=== PATIENT | male | born 1975 | race American Indian/Alaskan Native ===

== ENCOUNTER 2018-04-14 12:01 | Inpatient (IN) | payer MEDICARE ==
[2018-04-14] MEDS ORDERED: NACL 0.9% 500 ML 500 ML IV ONE (12:43)
[2018-04-14] MEDS ORDERED: TYLENOL FEEDTUBE ONE (12:45)
[2018-04-14] MEDS ORDERED: ATROVENT IH ONE (12:47)
[2018-04-14] MEDS ORDERED: PROVENTIL IH ONE ×2 (12:47→14:12)
--- NOTE | 2018-04-14 12:47 | Emergency Department Report ---
HPI - General Chief Complaint: Dyspnea/Respdistress Time Seen by Provider: 04/14/18 12:38 - HPI HPI: This is a 43-year-old -Swiss male who presents to the emergency department via EMS from home as a code sepsis and shortness of breath. The cuca ent has a past medical history of cerebral palsy, profound mental retardation, seizures. He is nonverbal at baseline. He has a feeding tube. Mom says that he has felt warm but she does not have a thermometer at home and he presents here with a fever. He is also been having a lot of head and chest congestion with coughing. This is been going on for the past 2-3 days and mom has been trying to treat with Mucinex. Primary care physician is Dr. Scott. ED Past Medical Hx - Past Medical History Previous Medical History?: Yes Hx Hypertension: Yes Hx Seizures: Yes Additional medical history: Cerebral Palsy - Social History Smoking Status: Never Smoker Substance Use Type: None - Medications Home Medications: Home Medications Medication Instructions Recorded Confirmed Last Taken Type Benazepril HCl [Lotensin] 10 mg PO DAILY 04/14/18 04/14/18 Unknown History Lactulose [Constulose] 2.5 tsp PO BID 04/14/18 04/14/18 Unknown History Metoprolol Tartrate 100 mg PO DAILY 04/14/18 04/14/18 Unknown History PHENobarbital [Phenobarbital] 2.5 tsp PO BID 04/14/18 04/14/18 Unknown History ED Review of Systems ROS: Stated complaint: CONGESTION Other details as noted in HPI Comment: Unobtainable due to pts medical conditions Physical Exam - Physical Exam Vital Signs: Vital Signs 04/14/18 12:41 Temperature 102.7 F H Pulse Rate 105 H Respiratory 50 H Rate Blood Pressure 152/99 O2 Sat by Pulse 92 Oximetry Physical Exam: GENERAL: Patient is ill-appearing. HEENT: Normocephalic. Atraumatic. Patient has moist mucous membranes. EYES: Extraocular motions are intact. Pupils are equal and reactive to light bilaterally. NECK: Supple. Trachea is midline. CHEST/LUNGS: Coarse breath sounds and some rhonchi heard. There is some tachypnea with accessory muscle use. There is some respiratory distress noted. HEART/CARDIOVASCULAR: Regular. There is moderate tachycardia. There is no obvious murmur. ABDOMEN: Abdomen is soft, nontender. Patient has normal bowel sounds. There is no abdominal distention. SKIN: Skin is warm and dry. NEURO: The patient is awake but nonverbal and does not follow any commands but this is baseline for the patient. MUSCULOSKELETAL: Contracted upper and lower extremities bilaterally. ED Course Vital Signs 04/14/18 12:41 Temperature 102.7 F H Pulse Rate 105 H Respiratory 50 H Rate Blood Pressure 152/99 O2 Sat by Pulse 92 Oximetry - ABG Interpretation Ph: 7.4 PCO2: 39 PO2: 136 Bicarbonate: 24 Interpretation: normal - Central Line Placement Left Femoral Consent Obtained: verbal consent Time Out Performed: Yes Patient Placed on Monitor/Pulse Ox: Yes Prep: mask, gown, gloves Central Line Prep: Chlorhexidine scrub Local Anesthesia Used: Lidocaine 1% Amount of Anesthesia Used (mls): 3 Ultrasound Used for Placement: Yes Central Line Lumen Inserted: triple Bloods Obtained for Lab: No Central Line Position: good blood return, all ports aspirated, flus, sutured in place with nyl Dressing Applied: Tegaderm, sterile gauze/tape Patient Tolerated Procedure: well Complications: none ED Medical Decision Making - Lab Data Result diagrams: 04/14/18 12:53 04/14/18 12:53 - EKG Data -: EKG Interpreted by Me EKG shows normal: sinus rhythm, axis, intervals, QRS complexes, ST-T waves Rate: tachycardia (134 bpm) - EKG Data When compared to previous EKG there are: previous EKG unavailable Interpretation: other (sinus tach at 134 bpm) - Radiology Data Radiology results: image reviewed interpreted by me: Chest x-ray shows some pulmonary vascular congestion and cardiomegaly. - Medical Decision Making This patient presents to the emergency department with the complaints of shortness of breath and as a code sepsis. Patient presents with tachycardia, tachypnea and a fever. Chest x-ray shows some vascular congestion But no obvious pneumonia. Negative for rapid flu and strep. Labs show a leukocytosis, hyponatremia. He was started empirically on some Levaquin. He is received IV fluid resuscitation. The patient's breath sounds are very coarse with some rhonchi and the chest x-ray showed some vascular congestion so the patient was given a small amount of Lasix despite his hyponatremia in the hopes for some diuresis and improvement of his respiratory status. An ABG was done that came back as normal without any acid-base disturbance. He has been on a Venturi mask at about 35%. Patient will be admitted to the [facility] for further evaluation and treatment was extended for admission by the hospitalist, Dr. Abel. - Differential Diagnosis sepsis, pneumonia, CHF, influenza Critical Care Time: Yes Critical care time in (mins) excluding proc time.: 35 Critical care attestation.: If time is entered above; I have spent that time in minutes in the direct care of this critically ill patient, excluding procedure time. Critical care time was spent on this patient and doing his initial evaluation, multiple re- evaluations, ordering interpretation of labs and imaging, discussion with the patient's mother. This does not include the time spent doing the central line procedure. Critical Care Time: 35 minutes ED Disposition Clinical Impression: Hyponatremia syndrome Sepsis Qualifiers: Sepsis type: sepsis due to unspecified organism Qualified Code(s): A41.9 - Sepsis, unspecified organism Leukocytosis Qualifiers: Leukocytosis type: unspecified Qualified Code(s): D72.829 - Elevated white blood cell count, unspecified Dyspnea Qualifiers: Dyspnea type: shortness of breath Qualified Code(s): R06.02 - Shortness of breath Disposition: DC-09 OP ADMIT IP TO THIS HOSP Is pt being admited?: Yes Condition: Serious Time of Disposition: 18:53
[2018-04-14 13:12] LABS: Hematocrit 48.1 % (35.5-45.6); Hemoglobin 16.3 gm/dl (11.8-15.2); Mean Corpuscular HGB Conc 34 % (32-34); Mean Corpuscular Volume 86 fl (84-94); Platelet Count 314 K/mm3 (140-440); Red Blood Count 5.63 M/mm3 (3.65-5.03); Red Cell Distribution Width 13.6 % (13.2-15.2)
[2018-04-14] MEDS ORDERED: LEVAQUIN 750MG/150ML 750 MG/150 ML BAG IV ONE (13:13)
[2018-04-14 13:22] LABS: Alanine Aminotransferase 21 units/L (7-56); Albumin 3.9 g/dL (3.9-5); BUN/Creatinine Ratio 10; Blood Urea Nitrogen 4 mg/dL (9-20); Calcium 9.6 mg/dL (8.4-10.2); Hemolysis Index 16
--- NOTE | 2018-04-14 13:50 | XRay Report ---
AP CHEST: HISTORY: Cough No comparison. Posterior Don brannon is noted securing scoliosis. Mild cardiomegaly and mild pulmonary venous congestion are suspected. No obvious infiltrate, large pleural effusion or pneumothorax. IMPRESSION: Mild cardiomegaly and pulmonary venous congestion.
[2018-04-14 13:52] LABS: Band Neutrophils # (Manual) 0.4 K/mm3; Basophils % (Manual) 0 % (0.0-1.8); Eosinophils % (Manual) 0 % (0.0-4.3); Total Cells Counted 100
[2018-04-14 13:53] LABS: Large Platelets Few; Platelet Estimate Cons; RBC Morphology Normal
[2018-04-14] MEDS ORDERED: LASIX IV ONE (14:12)
[2018-04-14] MEDS ORDERED: TORADOL IV ONE (15:04)
[2018-04-14 15:22] LABS: Bilirubin,Urine NEG (Negative); Blood,Urine NEG (Negative); Color,Urine Amber (Yellow); Mucus,Urine 3+ /HPF
--- NOTE | 2018-04-14 15:40 | History and Physical Report ---
History of Present Illness Chief complaint: He cant breathe History of present illness: 43 YO Male with HTN, Seizure Disorder, CP presents to ED for evaluation. Pt is lethargic and nonverbal at baseline and unable to provide history. Pt history taken from mother who is at bedside during exam and interview. per mother, the patient has experienced shortness of breath today and felt like he was having fever, and just "didnt look right". EMS notified, and upon arrival the patient was found to have respiratory distress, with excess oral secretions in his oral pharynx. Pt transported to [facility] for further care. Pt seen and evaluated in ED and found to have Sepsis, as well as Acute Respiratory Failure. Pt admitted to IM and initiated on sepsis protocol. No further history obtainable. Primary care physician is Dr. Scott. Past History Past Medical History: hypertension, seizures, other (CP) Past Surgical History: No surgical history, Other (reviewed) Social history: single. denies: smoking, alcohol abuse, prescription drug abuse, IV drug use Family history: hypertension Medications and Allergies Allergies Allergy/AdvReac Type Severity Reaction Status Date / Time No Known Allergies Allergy Unverified 04/14/18 12:46 Home Medications Medication Instructions Recorded Confirmed Last Taken Type Benazepril HCl [Lotensin] 10 mg PO DAILY 04/14/18 04/14/18 Unknown History Lactulose [Constulose] 2.5 tsp PO BID 04/14/18 04/14/18 Unknown History Metoprolol Tartrate 100 mg PO DAILY 04/14/18 04/14/18 Unknown History PHENobarbital [Phenobarbital] 2.5 tsp PO BID 04/14/18 04/14/18 Unknown History Review of Systems ROS unobtainable: due to mental status Exam - Constitutional Vitals: Temp Pulse Resp BP Pulse Ox 102.7 F H 105 H 50 H 152/99 92 04/14/18 12:41 04/14/18 12:41 04/14/18 12:41 04/14/18 12:41 04/14/18 12:41 General appearance: Present: mild distress - EENT Eyes: Present: PERRL ENT: hearing intact, clear oral mucosa - Neck Neck: Present: supple, normal ROM - Respiratory Respiratory effort: normal Respiratory: bilateral: diminished - Cardiovascular Rhythm: other (tachycardia) Heart Sounds: Present: S1 & S2. Absent: rub, click - Extremities Extremities: pulses symmetrical, No edema Peripheral Pulses: abnormal (capillary refill greater than 3.5 seconds) - Abdominal General gastrointestinal: Present: soft, non-tender, non-distended, normal bowel sounds Male genitourinary: Present: normal - Rectal Rectal Exam: normal exam-external/orifice - Integumentary Integumentary: Present: clear, warm, dry - Musculoskeletal Musculoskeletal: generalized weakness - Psychiatric Psychiatric: no appropriate mood/affect, no intact judgment & insight, no memory intact - Neurologic Neurologic: CNII-XII intact, moves all extremities, no gait normal Results - Labs CBC & Chem 7: 04/14/18 12:53 04/14/18 12:53 Labs: Abnormal lab results 04/14/18 04/14/18 04/14/18 Range/Units 12:53 12:53 14:45 WBC 20.3 H (4.5-11.0) K/mm3 RBC 5.63 H (3.65-5.03) M/mm3 Hgb 16.3 H (11.8-15.2) gm/dl Hct 48.1 H (35.5-45.6) % Seg Neuts % (Manual) 74.0 H (40.0-70.0) % Monocytes % (Manual) 8.0 H (0.0-7.3) % Seg Neutrophils # Man 15.0 H (1.8-7.7) K/mm3 Monocytes # (Manual) 1.6 H (0.0-0.8) K/mm3 POC ABG pO2 136 H (80-105) Sodium 122 L (137-145) mmol/L Chloride 86.3 L (98-107) mmol/L BUN 4 L (9-20) mg/dL Creatinine 0.4 L (0.8-1.5) mg/dL Glucose 111 H (75-100) mg/dL Total Protein 8.6 H (6.3-8.2) g/dL Assessment and Plan - Patient Problems (1) Sepsis Current Visit: Yes Status: Acute Qualifiers: Sepsis type: sepsis due to unspecified organism Qualified Code(s): A41.9 - Sepsis, unspecified organism Plan to address problem: Sepsis Protocol: Admit to IMCU, IVF resuscitation, monitor uop q shift, serial lactic acid level, blood cultures, urinalysis, CBC, CMP, chest x ray, urinalysis. (2) Respiratory failure Current Visit: Yes Status: Acute Qualifiers: Chronicity: acute Respiratory failure complication: hypoxia Qualified Code(s): J96.01 - Acute respiratory failure with hypoxia Plan to address problem: Supplemental oxygen, nebulizer therapy, pulse oximetry, ABG, chest x ray, NIPPV as clinically indicated. (3) Hyponatremia syndrome Current Visit: Yes Status: Acute Plan to address problem: IVF resuscitation therapy, monitor uop q shift, repeat bmp, (4) DVT prophylaxis Current Visit: Yes Status: Acute Plan to address problem: SCD to BLE while in bed.
[2018-04-14] MEDS ORDERED: PROVENTIL IH PRN (15:41)
[2018-04-14] MEDS ORDERED: NACL 0.9% 1000 ML IV ONE (15:41)
[2018-04-14] MEDS ORDERED: SODIUM CHLORIDE FLUSH SYRINGE 10 ML IV PRN (15:41)
[2018-04-14] MEDS ORDERED: VANCOMYCIN PHARMACY TO DOSE IV SCH (16:00)
[2018-04-14] MEDS ORDERED: ROCEPHIN/NS 2 GM/100 ML 2 GM/100 ML BAG IV SCH (17:00)
[2018-04-14] MEDS ORDERED: VANCOMYCIN 1,500 MG in NACL 0.9% 500 ML 500 ML IV ONE (18:00)
[2018-04-14] MEDS: SODIUM CHLORIDE FLUSH SYRINGE 10 ML IV SCH (21:30)
[2018-04-14] MEDS ORDERED: AFLURIA QUAD 2018-2019 SYRINGE IM ONE (21:42)
[2018-04-14] MEDS ORDERED: PHENOBARBITAL PO SCH (22:00)
[2018-04-15] MEDS: TYLENOL FEEDTUBE PRN ×2 (03:19→22:06)
[2018-04-15 05:38] LABS: Hemoglobin 14.2 gm/dl (11.8-15.2); Mean Corpuscular HGB Conc 34 % (32-34); Mean Corpuscular Volume 85 fl (84-94); Platelet Count 280 K/mm3 (140-440); Red Blood Count 4.92 M/mm3 (3.65-5.03); Red Cell Distribution Width 13.7 % (13.2-15.2)
[2018-04-15] MEDS: ROCEPHIN/NS 2 GM/100 ML 2 GM/100 ML BAG IV SCH (06:05)
[2018-04-15] MEDS: CEPHULAC PR SCH ×2 (06:07→18:58)
[2018-04-15 06:52] LABS: Band Neutrophils # (Manual) 0.6 K/mm3; Basophils % (Manual) 0 % (0.0-1.8); Eosinophils % (Manual) 0 % (0.0-4.3); Platelet Estimate Consistent w Auto; RBC Morphology Normal; Total Cells Counted 100
[2018-04-15 07:24] LABS: Hemolysis Index 0
[2018-04-15 07:55] LABS: BUN/Creatinine Ratio 8; Blood Urea Nitrogen 3 mg/dL (9-20); Calcium 8.1 mg/dL (8.4-10.2)
--- NOTE | 2018-04-15 08:58 | Progress Note ---
Assessment and Plan Assessment and plan: 43 YO Male with HTN, Seizure Disorder, Cerebal Palsy presents to ED for evaluation. Pt is lethargic and nonverbal at baseline and unable to provide history. Pt history taken from mother who is at bedside during exam and interview. per mother, the patient has experienced shortness of breath today and felt like he was having fever, and just "didnt look right". EMS notified, and upon arrival the patient was found to have respiratory distress, with excess oral secretions in his oral pharynx. Pt transported to [facility] for further care. Pt seen and evaluated in ED and found to have Sepsis, as well as Acute Respiratory Failure. Pt admitted to IMCU and initiated on sepsis protocol. Primary care physician is Dr. Scott. (1) Sepsis Current Visit: Yes Status: Acute Qualifiers: Sepsis type: sepsis due to unspecified organism Qualified Code(s): A41.9 - Sepsis, unspecified organism Plan to address problem: Sepsis Protocol:Continue IMCU care, IVF resuscitation, monitor uop q shift, Blood cultures, URINE culture so far with no growth. ID consult. (2) Respiratory failure Current Visit: Yes Status: Acute Qualifiers: Chronicity: acute Respiratory failure complication: hypoxia Qualified Code(s): J96.01 - Acute respiratory failure with hypoxia Plan to address problem: Supplemental oxygen, nebulizer therapy, pulse oximetry, ABG, chest x ray, NIPPV as clinically indicated. Possible Aspiration related. Patients mom, states that the patient gets some ora l fed intermittently, has infrequent nausea with vomiting. Scopolamine due to secretion management (3) Pulmonary vascular congestion -Lasix, -Echo (4) Metabolic Acidosis Bicarb iv x 1 (5) Hyponatremia syndrome Current Visit: Yes Status: Acute Plan to address problem: IVF resuscitation therapy, monitor uop q shift, repeat bmp, (6) Mental Retardation secondary To CP Continue current management (6) DVT prophylaxis Current Visit: Yes Status: Acute Plan to address problem: SCD to BLE while in bed. History Interval history: Patient seen and examined, remains on venturi mask, mom at the bedside, reports that his breathing has improved some. Hospitalist Physical - Physical exam Narrative exam: General appearance: Present: mild distress - EENT Eyes: Present: PERRL ENT: hearing intact, clear oral mucosa - Neck Neck: Present: supple, normal ROM - Respiratory Respiratory effort: normal Respiratory: bilateral: diminished, crackles - Cardiovascular Rhythm: other (tachycardia) Heart Sounds: Present: S1 & S2. Absent: rub, click - Extremities Extremities: pulses symmetrical, No edema Peripheral Pulses: abnormal (capillary refill greater than 3.5 seconds) - Abdominal General gastrointestinal: Present: soft, non-tender, non-distended, normal bowel sounds Male genitourinary: Present: normal - Integumentary Integumentary: Present: clear, warm, dry - Musculoskeletal Musculoskeletal: generalized weakness, contracted - Psychiatric Psychiatric: no appropriate mood/affect, no intact judgment & insight, no memory intact - Neurologic Neurologic: CNII-XII intact, moves all extremities, no gait normal - Constitutional Vitals: Temp Pulse Resp BP Pulse Ox 98.2 F 110 H 28 H 118/87 98 04/15/18 08:00 04/15/18 08:00 04/15/18 08:00 04/15/18 08:00 04/15/18 08:00 General appearance: Present: mild distress Results - Labs CBC & Chem 7: 04/15/18 04:55 04/15/18 04:55 Labs: Laboratory Last Values WBC 28.2 K/mm3 (4.5-11.0) H 04/15/18 04:55 RBC 4.92 M/mm3 (3.65-5.03) 04/15/18 04:55 Hgb 14.2 gm/dl (11.8-15.2) 04/15/18 04:55 Hct 42.0 % (35.5-45.6) D 04/15/18 04:55 MCV 85 fl (84-94) 04/15/18 04:55 MCH 29 pg (28-32) 04/15/18 04:55 MCHC 34 % (32-34) 04/15/18 04:55 RDW 13.7 % (13.2-15.2) 04/15/18 04:55 Plt Count 280 K/mm3 (140-440) 04/15/18 04:55 Add Manual Diff Complete 04/15/18 04:55 Total Counted 100 04/15/18 04:55 Seg Neuts % (Manual) 86.0 % (40.0-70.0) H 04/15/18 04:55 Band Neutrophils % 2.0 % 04/15/18 04:55 Lymphocytes % (Manual) 3.0 % (13.4-35.0) L 04/15/18 04:55 Reactive Lymphs % (Man) 0 % 04/15/18 04:55 Monocytes % (Manual) 9.0 % (0.0-7.3) H 04/15/18 04:55 Eosinophils % (Manual) 0 % (0.0-4.3) 04/15/18 04:55 Basophils % (Manual) 0 % (0.0-1.8) 04/15/18 04:55 Metamyelocytes % 0 % 04/15/18 04:55 Myelocytes % 0 % 04/15/18 04:55 Promyelocytes % 0 % 04/15/18 04:55 Blast Cells % 0 % 04/15/18 04:55 Nucleated RBC % Not Reportable 04/15/18 04:55 Seg Neutrophils # Man 24.3 K/mm3 (1.8-7.7) H 04/15/18 04:55 Band Neutrophils # 0.6 K/mm3 04/15/18 04:55 Lymphocytes # (Manual) 0.8 K/mm3 (1.2-5.4) L 04/15/18 04:55 Abs React Lymphs (Man) 0.0 K/mm3 04/15/18 04:55 Monocytes # (Manual) 2.5 K/mm3 (0.0-0.8) H 04/15/18 04:55 Eosinophils # (Manual) 0.0 K/mm3 (0.0-0.4) 04/15/18 04:55 Basophils # (Manual) 0.0 K/mm3 (0.0-0.1) 04/15/18 04:55 Metamyelocytes # 0.0 K/mm3 04/15/18 04:55 Myelocytes # 0.0 K/mm3 04/15/18 04:55 Promyelocytes # 0.0 K/mm3 04/15/18 04:55 Blast Cells # 0.0 K/mm3 04/15/18 04:55 WBC Morphology Not Reportable 04/15/18 04:55 Hypersegmented Neuts Not Reportable 04/15/18 04:55 Hyposegmented Neuts Not Reportable 04/15/18 04:55 Hypogranular Neuts Not Reportable 04/15/18 04:55 Smudge Cells Not Reportable 04/15/18 04:55 Toxic Granulation Not Reportable 04/15/18 04:55 Toxic Vacuolation Not Reportable 04/15/18 04:55 Dohle Bodies Not Reportable 04/15/18 04:55 Pelger-Huet Anomaly Not Reportable 04/15/18 04:55 Vinicio Rods Not Reportable 04/15/18 04:55 Platelet Estimate Consistent w auto 04/15/18 04:55 Clumped Platelets Not Reportable 04/15/18 04:55 Plt Clumps, EDTA Not Reportable 04/15/18 04:55 Large Platelets Not Reportable 04/15/18 04:55 Giant Platelets Not Reportable 04/15/18 04:55 Platelet Satelliting Not Reportable 04/15/18 04:55 Plt Morphology Comment Not Reportable 04/15/18 04:55 RBC Morphology Normal 04/15/18 04:55 Dimorphic RBCs Not Reportable 04/15/18 04:55 Polychromasia Not Reportable 04/15/18 04:55 Hypochromasia Not Reportable 04/15/18 04:55 Poikilocytosis Not Reportable 04/15/18 04:55 Anisocytosis Not Reportable 04/15/18 04:55 Microcytosis Not Reportable 04/15/18 04:55 Macrocytosis Not Reportable 04/15/18 04:55 Spherocytes Not Reportable 04/15/18 04:55 Pappenheimer Bodies Not Reportable 04/15/18 04:55 Sickle Cells Not Reportable 04/15/18 04:55 Target Cells Not Reportable 04/15/18 04:55 Tear Drop Cells Not Reportable 04/15/18 04:55 Ovalocytes Not Reportable 04/15/18 04:55 Helmet Cells Not Reportable 04/15/18 04:55 Reddy-Veguita Bodies Not Reportable 04/15/18 04:55 [place] Rings Not Reportable 04/15/18 04:55 Doyle Cells Not Reportable 04/15/18 04:55 Bite Cells Not Reportable 04/15/18 04:55 Crenated Cell Not Reportable 04/15/18 04:55 Elliptocytes Not Reportable 04/15/18 04:55 Acanthocytes (Spur) Not Reportable 04/15/18 04:55 Rouleaux Not Reportable 04/15/18 04:55 Hemoglobin C Crystals Not Reportable 04/15/18 04:55 Schistocytes Not Reportable 04/15/18 04:55 Malaria parasites Not Reportable 04/15/18 04:55 Janes Bodies Not Reportable 04/15/18 04:55 Hem Pathologist Commnt No 04/15/18 04:55 POC ABG pH 7.400 (7.35-7.45) 04/14/18 14:45 POC ABG pCO2 39.6 (35-45) 04/14/18 14:45 POC ABG pO2 136 (80-105) H 04/14/18 14:45 POC ABG HCO3 24.6 04/14/18 14:45 POC ABG Total CO2 26 04/14/18 14:45 POC ABG O2 Sat 99 04/14/18 14:45 POC ABG Base Excess 0 04/14/18 14:45 VBG pH 7.412 (7.320-7.420) 04/14/18 12:53 FiO2 35 % 04/14/18 14:45 Sodium 130 mmol/L (137-145) L D 04/15/18 04:55 Potassium 4.2 mmol/L (3.6-5.0) 04/15/18 04:55 Chloride 93.4 mmol/L (98-107) L 04/15/18 04:55 Carbon Dioxide 17 mmol/L (22-30) L 04/15/18 04:55 Anion Gap 24 mmol/L 04/15/18 04:55 BUN 3 mg/dL (9-20) L 04/15/18 04:55 Creatinine 0.4 mg/dL (0.8-1.5) L 04/15/18 04:55 Estimated GFR > 60 ml/min 04/15/18 04:55 BUN/Creatinine Ratio 8 % 04/15/18 04:55 Glucose 108 mg/dL (75-100) H 04/15/18 04:55 Lactic Acid 1.50 mmol/L (0.7-2.0) 04/14/18 23:05 Calcium 8.1 mg/dL (8.4-10.2) L D 04/15/18 04:55 Total Bilirubin 0.40 mg/dL (0.1-1.2) 04/14/18 12:53 AST 19 units/L (5-40) 04/14/18 12:53 ALT 21 units/L (7-56) 04/14/18 12:53 Alkaline Phosphatase 123 units/L (35-129) 04/14/18 12:53 Troponin T < 0.010 ng/mL (0.00-0.029) 04/14/18 12:53 NT-Pro-B Natriuret Pep 26.47 pg/mL (0-450) 04/14/18 14:17 Total Protein 8.6 g/dL (6.3-8.2) H 04/14/18 12:53 Albumin 3.9 g/dL (3.9-5) 04/14/18 12:53 Albumin/Globulin Ratio 0.8 % 04/14/18 12:53 Urine Color Jessy (Yellow) 04/14/18 15:08 Urine Turbidity Clear (Clear) 04/14/18 15:08 Urine pH 7.0 (5.0-7.0) 04/14/18 15:08 Ur Specific [place] 1.029 (1.003-1.030) 04/14/18 15:08 Urine Protein 100 mg/dl mg/dL (Negative) 04/14/18 15:08 Urine Glucose (UA) Neg mg/dL (Negative) 04/14/18 15:08 Urine Ketones Neg mg/dL (Negative) 04/14/18 15:08 Urine Blood Neg (Negative) 04/14/18 15:08 Urine Nitrite Neg (Negative) 04/14/18 15:08 Urine Bilirubin Neg (Negative) 04/14/18 15:08 Urine Urobilinogen 4.0 mg/dL (<2.0) 04/14/18 15:08 Ur Leukocyte Esterase Neg (Negative) 04/14/18 15:08 Urine WBC (Auto) 2.0 /HPF (0.0-6.0) 04/14/18 15:08 Urine RBC (Auto) 2.0 /HPF (0.0-6.0) 04/14/18 15:08 U Epithel Cells (Auto) < 1.0 /HPF (0-13.0) 04/14/18 15:08 Urine Mucus 3+ /HPF 04/14/18 15:08 Urine Yeast (Budding) Few /HPF 04/14/18 15:08 Influenza A (Rapid) Negative (Negative) 04/14/18 Unknown Influenza B (Rapid) Negative (Negative) 04/14/18 Unknown Group A Strep Rapid Negative (Negative) 04/14/18 Unknown
[2018-04-15] MEDS ORDERED: NON-FORMULARY (Benazepril Hcl [Lotensin] 10 MG) PO SCH (10:00)
[2018-04-15] MEDS: LASIX IV SCH ×2 (10:23→20:40)
[2018-04-15] MEDS: VANCOMYCIN 1,500 MG in NACL 0.9% 500 ML 500 ML IV SCH ×2 (10:23→22:05)
[2018-04-15] MEDS: TRANSDERM-SCOP TD SCH (10:23)
[2018-04-15] MEDS: LOPRESSOR PO SCH (10:24)
[2018-04-15] MEDS: SODIUM CHLORIDE FLUSH SYRINGE 10 ML IV SCH ×2 (10:24→22:08)
[2018-04-15] MEDS: ZESTRIL PO SCH (10:25)
[2018-04-15] MEDS ORDERED: PANCREAZE DR 10,500 UNIT FEEDTUBE PRN (10:31)
[2018-04-15] MEDS ORDERED: SIMPLE SYRUP FEEDTUBE PRN ×2 (10:31)
[2018-04-15] MEDS ORDERED: SODIUM BICARBONATE FEEDTUBE PRN (10:31)
[2018-04-15] MEDS ORDERED: AFLURIA QUAD 2018-2019 SYRINGE IM ONE (12:00)
[2018-04-15] MEDS ORDERED: SODIUM BICARBONATE IV ONE (13:00)
[2018-04-16] MEDS: ROCEPHIN/NS 2 GM/100 ML 2 GM/100 ML BAG IV SCH ×3 (05:15→18:11)
[2018-04-16] MEDS: LASIX IV SCH (05:21)
[2018-04-16] MEDS: CEPHULAC PR SCH (05:42)
[2018-04-16 05:51] LABS: Hematocrit 41.9 % (35.5-45.6); Mean Corpuscular HGB Conc 34 % (32-34); Mean Corpuscular Volume 84 fl (84-94); Platelet Count 291 K/mm3 (140-440); Red Blood Count 4.97 M/mm3 (3.65-5.03); Red Cell Distribution Width 13.4 % (13.2-15.2)
[2018-04-16 06:00] LABS: BUN/Creatinine Ratio 16; Blood Urea Nitrogen 8 mg/dL (9-20); Hemolysis Index 5
[2018-04-16] MEDS ORDERED: POTASSIUM CHLORIDE FEEDTUBE ONE (08:46)
[2018-04-16] MEDS ORDERED: CEPHULAC PO PRN (08:47)
[2018-04-16] MEDS: VANCOMYCIN 1,500 MG in NACL 0.9% 500 ML 500 ML IV SCH (09:46)
[2018-04-16] MEDS: LOPRESSOR PO SCH (09:47)
[2018-04-16] MEDS: ZESTRIL PO SCH (09:48)
[2018-04-16] MEDS: SODIUM CHLORIDE FLUSH SYRINGE 10 ML IV SCH (09:49)
[2018-04-16] MEDS ORDERED: LASIX IV SCH (10:00)
--- NOTE | 2018-04-16 10:42 | Consultation ---
History of Present Illness - Reason for Consult Consult date: 04/16/18 Sepsis Requesting physician: SARAH HARTMAN - History of Present Illness This patient is a 43 year old male with a past medical history of HTN, Seizure disorder, CP that presents in the ED on 04/14/18 via EMS. On arrival at the home, patient was found to have respiratory distress, with excess oral secretion in his oral phyarynx. patient has a feeing tube. According to mom , patient has had a lot of head and chest congestion with coughing. Upon evaluation in the ED, he was found to have sepsis, as well as acute respiratory failure. On admission WBC 20.3, Creatinine 0.4, lactic Acid 5.70, Temperature 102.7, HR 117, BP 152/99, U/a shows no pyuria, leukocyte esterase negative, Influenza negative, Group A strep negative. . Chest xray shows Mild cardiomegaly and pulmonary venous congestion. Blood and urine cultures were drawn and show no growth to date. Unable to obtain history due to mental status. No family at bedside. History obtained from bedside nurse and chart review. Past History Past Medical History: hypertension, seizures, other (CP) Past Surgical History: No surgical history, Other (reviewed) Social history: single. denies: smoking, alcohol abuse, prescription drug abuse, IV drug use Family history: hypertension Medications and Allergies Allergies Allergy/AdvReac Type Severity Reaction Status Date / Time No Known Allergies Allergy Unverified 04/14/18 12:46 Home Medications Medication Instructions Recorded Confirmed Last Taken Type Benazepril HCl [Lotensin] 10 mg PO DAILY 04/14/18 04/14/18 Unknown History Lactulose [Constulose] 2.5 tsp PO BID 04/14/18 04/14/18 Unknown History Metoprolol Tartrate 100 mg PO DAILY 04/14/18 04/14/18 Unknown History PHENobarbital [Phenobarbital] 2.5 tsp PO BID 04/14/18 04/14/18 Unknown History Active Meds: Active Medications Acetaminophen (Tylenol) 650 mg FEEDTUBE Q4H PRN PRN Reason: Fever >101 Last Admin: 04/15/18 22:06 Dose: 650 mg Documented by: Lipase/Protease/Amylase (Konrad Chavez 10,500 Unit) 1 each FEEDTUBE PRN PRN PRN Reason: For Clogged Feeding Tube Furosemide (Lasix) 40 mg IV DAILY [facility] Last Admin: 04/16/18 09:48 Dose: 40 mg Documented by: Ceftriaxone Sodium (Rocephin/Ns 2 Gm/100 Ml) 2 gm in 100 mls @ 200 mls/hr IV Q12H [facility]; Protocol Last Admin: 04/16/18 06:49 Dose: Not Given Documented by: Vancomycin HCl 1,500 mg/ (Sodium Chloride) 530 mls @ 333.333 mls/hr IV Q12H [facility] Last Admin: 04/16/18 09:46 Dose: 333.333 mls/hr Documented by: Lactulose (Cephulac) 2.5 gm PO BID PRN PRN Reason: Constipation Lisinopril (Zestril) 10 mg PO QDAY [facility] Last Admin: 04/16/18 09:48 Dose: 10 mg Documented by: Metoprolol Tartrate (Lopressor) 100 mg PO DAILY [facility] Last Admin: 04/16/18 09:47 Dose: 100 mg Documented by: Phenobarbital (Phenobarbital) 50 mg PO BID [facility] Last Admin: 04/16/18 10:26 Dose: 50 mg Documented by: Scopolamine (Transderm-Scop) 1 each TD Q3D [facility] Last Admin: 04/15/18 10:23 Dose: 1 each Documented by: Simple Syrup (Simple Syrup) 15 ml FEEDTUBE PRN PRN PRN Reason: Hypoglycemia Simple Syrup (Simple Syrup) 30 ml FEEDTUBE PRN PRN PRN Reason: Hypoglycemia Sodium Bicarbonate (Sodium Bicarbonate) 325 mg FEEDTUBE PRN PRN PRN Reason: For Clogged Feeding Tube Sodium Chloride (Sodium Chloride Flush Syringe 10 Ml) 10 ml IV BID [facility] Last Admin: 04/16/18 09:49 Dose: 10 ml Documented by: Sodium Chloride (Sodium Chloride Flush Syringe 10 Ml) 10 ml IV PRN PRN PRN Reason: LINE FLUSH Physical Examination - Physical Exam Narrative exam: Constitutional: Asleep, easily arousable . CP Mild distress observed Head, Ears, Nose: Normocephalic, atraumatic. External ears, nose normal Eyes: Conjunctivae/corneas clear. No icterus. No ptosis. Neck: Supple, no meningeal signs Oral: dentition poor. no thrush . + macroglossia Cardiovascular: S1, S2 normal. Respiratory: 50% venti mask, bilateral rhonchi GI: Soft, non-tender; bowel sounds normal. No peritoneal signs Musculoskeletal: No pedal edema, no cyanosis., + hand contractures Skin: No rash or abscess. Hem/Lymphatic: No palpable cervical or supraclavicular nodes. No lymphangitis Psych: CP Neurological: Asleep, easily arousable , CP. - Constitutional Vitals: Vital Signs Temp Pulse Resp BP Pulse Ox 99.2 F 99 H 20 107/65 99 04/16/18 08:00 04/16/18 09:48 04/16/18 08:40 04/16/18 09:48 04/16/18 08:40 Temperature -Last 24 Hours Temperature 99.2 F Temperature 98.2 F Temperature 98.6 F Temperature 99.7 F Temperature 100.5 F Results - Labs CBC & Chem 7: 04/16/18 05:12 04/16/18 05:12 Labs: Abnormal lab results 04/16/18 04/16/18 Range/Units 05:12 05:12 WBC 20.7 H (4.5-11.0) K/mm3 Potassium 3.2 L D (3.6-5.0) mmol/L Chloride 94.6 L (98-107) mmol/L Carbon Dioxide 32 H D (22-30) mmol/L BUN 8 L (9-20) mg/dL Creatinine 0.5 L (0.8-1.5) mg/dL Glucose 104 H (75-100) mg/dL Assessment and Plan Cultures: 04/14/18 Blood: no growth to date 04/14/18 Urine; no growth to date 03/17/18 Group A Strep Throat: pending A/P: 43-year-old male with a past medical history of of HTN, Seizure disorder, CP, admitted with: 1, Sepsis on Admission: evidenced by fever, tachycardia, increased lactic acid, leukocytosis. etiology unclear,, likely related to acute respiratory failure vs aspiration. Hx of +NGT with chest congestion and cough. U/A negative. Urine and blood cultures show no growth to date. Influenza negative.. Group A strep negative, culture pending.. Chest xray shows vascular congestion, but no consolidations. Currently being treated with ceftriaxone and vancomycin. -Repeat CXR 04/16/18: DDX includes mild noncardiogenic pulmonary congestion, bronchitis, and developing bronchopneumonia in the appropriate clinical setting. 2. Acute Hypoxemic Respiratory Failure etiology volume overload vs aspiration. Chest Xray shows Mild cardiomegaly and pulmonary venous congestion.,Currently on Venti mask 50%. 3. Mental Retardation secondary to CP: Plan: -f/u blood cultures -f/u Group A throat culture -f/u urine culture -continue ceftriaxon and vancomycin for now -f/u TTE -Flu PCR ordered -Start Flagyl d/w [facility] M: [phone] O:[phone]
--- NOTE | 2018-04-16 10:58 | XRay Report ---
EXAM: XR CHEST 1V AP HISTORY: shortness of breath TECHNIQUE: AP chest x-ray dated 04/16/2018 at 9:13 AM. COMPARISON: None available. FINDINGS: There is mild prominence of the bronchopulmonary markings; differential diagnoses includes mild nonca rdiogenic pulmonary congestion, bronchitis, and developing bronchopneumonia in the appropriate clinic al setting. Clinical correlation is advised. There is increased opacity in the right lung base with elevation of the right hemidiaphragm in keepin g with basilar atelectasis and/or small pleural effusion; cannot rule out a pneumonic infiltrate in t he appropriate clinical setting. Clinical correlation is advised. No pneumothorax is seen. The heart size and mediastinum are within normal limits. Thoracolumbar stabilization brannon is noted in situ. The visualized bony structures are within normal li mits. IMPRESSION: 1. Mild prominence of the bronchopulmonary markings; DDX includes mild noncardiogenic pulmonary con gestion, bronchitis, and developing bronchopneumonia in the appropriate clinical setting. Clinical c orrelation is advised. 2. Bone Increased opacity in the right lung base with elevation of the right hemidiaphragm in keepin g with basilar atelectasis and/or small pleural effusion; cannot rule out a pneumonic infiltrate in t he appropriate clinical setting. Recommend clinical correlation and appropriate followup evaluation a s clinically warranted. This document is electronically signed by Dontae John MD., April 16 2018 10:55:21 AM ET
--- NOTE | 2018-04-16 13:41 | Progress Note ---
Assessment and Plan Assessment and plan: 43 YO Male with HTN, Seizure Disorder, Cerebal Palsy presents to ED for evaluation. Pt is lethargic and nonverbal at baseline and unable to provide history. Pt history taken from mother who is at bedside during exam and interview. per mother, the patient has experienced shortness of breath today and felt like he was having fever, and just "didnt look right". EMS notified, and upon arrival the patient was found to have respiratory distress, with excess oral secretions in his oral pharynx. Pt transported to [facility] for further care. Pt seen and evaluated in ED and found to have Sepsis, as well as Acute Respiratory Failure. Pt admitted to IMCU and initiated on sepsis protocol. Primary care physician is Dr. Scott. (1) Sepsis Current Visit: Yes Status: Acute Qualifiers: Sepsis type: sepsis due to unspecified organism Qualified Code(s): A41.9 - Sepsis, unspecified organism Plan to address problem: Sepsis Protocol:Continue IMCU care, IVF resuscitation, monitor uop q shift, Blood cultures, URINE culture so far with no growth. ID consult. discontinue femoral central line and place midline. (2) Respiratory failure Current Visit: Yes Status: Acute Qualifiers: Chronicity: acute Respiratory failure complication: hypoxia Qualified Code(s): J96.01 - Acute respiratory failure with hypoxia Plan to address problem: Supplemental oxygen, nebulizer therapy, pulse oximetry, ABG, chest x ray, NIPPV as clinically indicated. Possible Aspiration related. Patients mom, states that the patient gets some oral fed intermittently, has infrequent nausea with vomiting. Scopolamine due to secretion management (3) Pulmonary vascular congestion -Lasix, CHANGE TO DAILY -Echo (4) Metabolic Acidosis Bicarb iv x 1 (5) Hyponatremia syndrome Current Visit: Yes Status: Acute Plan to address problem: IVF resuscitation therapy, monitor uop q shift, repeat bmp, (6) Mental Retardation secondary To CP Continue current management (6) Hypokalemia Replace (7)DVT prophylaxis Current Visit: Yes Status: Acute Plan to address problem: SCD to BLE while in bed. Discussed with mother and nursings staff. History Interval history: Patient seen and examined, remains on venturi mask, mom at the bedside, no new fever, breathing improving Hospitalist Physical - Physical exam Narrative exam: General appearance: Present: mild distress - EENT Eyes: Present: PERRL ENT: hearing intact, clear oral mucosa - Neck Neck: Present: supple, normal ROM - Respiratory Respiratory effort: normal Respiratory: bilateral: diminished, crackles - Cardiovascular Rhythm: other (tachycardia) Heart Sounds: Present: S1 & S2. Absent: rub, click - Extremities Extremities: pulses symmetrical, No edema Peripheral Pulses: abnormal (capillary refill greater than 3.5 seconds) - Abdominal General gastrointestinal: Present: soft, non-tender, non-distended, normal bowel sounds Male genitourinary: Present: normal - Integumentary Integumentary: Present: clear, warm, dry - Musculoskeletal Musculoskeletal: generalized weakness, contracted - Psychiatric Psychiatric: no appropriate mood/affect, no intact judgment & insight, no memory intact - Neurologic Neurologic: CNII-XII intact, contracted - Constitutional Vitals: Temp Pulse Resp BP Pulse Ox 99.2 F 99 H 20 107/65 99 04/16/18 08:00 04/16/18 09:48 04/16/18 08:40 04/16/18 09:48 04/16/18 08:40 General appearance: Present: mild distress Results - Labs CBC & Chem 7: 04/16/18 05:12 04/16/18 05:12 Labs: Laboratory Last Values WBC 20.7 K/mm3 (4.5-11.0) H 04/16/18 05:12 RBC 4.97 M/mm3 (3.65-5.03) 04/16/18 05:12 Hgb 14.0 gm/dl (11.8-15.2) 04/16/18 05:12 Hct 41.9 % (35.5-45.6) 04/16/18 05:12 MCV 84 fl (84-94) 04/16/18 05:12 MCH 28 pg (28-32) 04/16/18 05:12 MCHC 34 % (32-34) 04/16/18 05:12 RDW 13.4 % (13.2-15.2) 04/16/18 05:12 Plt Count 291 K/mm3 (140-440) 04/16/18 05:12 Add Manual Diff Complete 04/15/18 04:55 Total Counted 100 04/15/18 04:55 Seg Neuts % (Manual) 86.0 % (40.0-70.0) H 04/15/18 04:55 Band Neutrophils % 2.0 % 04/15/18 04:55 Lymphocytes % (Manual) 3.0 % (13.4-35.0) L 04/15/18 04:55 Reactive Lymphs % (Man) 0 % 04/15/18 04:55 Monocytes % (Manual) 9.0 % (0.0-7.3) H 04/15/18 04:55 Eosinophils % (Manual) 0 % (0.0-4.3) 04/15/18 04:55 Basophils % (Manual) 0 % (0.0-1.8) 04/15/18 04:55 Metamyelocytes % 0 % 04/15/18 04:55 Myelocytes % 0 % 04/15/18 04:55 Promyelocytes % 0 % 04/15/18 04:55 Blast Cells % 0 % 04/15/18 04:55 Nucleated RBC % Not Reportable 04/15/18 04:55 Seg Neutrophils # Man 24.3 K/mm3 (1.8-7.7) H 04/15/18 04:55 Band Neutrophils # 0.6 K/mm3 04/15/18 04:55 Lymphocytes # (Manual) 0.8 K/mm3 (1.2-5.4) L 04/15/18 04:55 Abs React Lymphs (Man) 0.0 K/mm3 04/15/18 04:55 Monocytes # (Manual) 2.5 K/mm3 (0.0-0.8) H 04/15/18 04:55 Eosinophils # (Manual) 0.0 K/mm3 (0.0-0.4) 04/15/18 04:55 Basophils # (Manual) 0.0 K/mm3 (0.0-0.1) 04/15/18 04:55 Metamyelocytes # 0.0 K/mm3 04/15/18 04:55 Myelocytes # 0.0 K/mm3 04/15/18 04:55 Promyelocytes # 0.0 K/mm3 04/15/18 04:55 Blast Cells # 0.0 K/mm3 04/15/18 04:55 WBC Morphology Not Reportable 04/15/18 04:55 Hypersegmented Neuts Not Reportable 04/15/18 04:55 Hyposegmented Neuts Not Reportable 04/15/18 04:55 Hypogranular Neuts Not Reportable 04/15/18 04:55 Smudge Cells Not Reportable 04/15/18 04:55 Toxic Granulation Not Reportable 04/15/18 04:55 Toxic Vacuolation Not Reportable 04/15/18 04:55 Dohle Bodies Not Reportable 04/15/18 04:55 Pelger-Huet Anomaly Not Reportable 04/15/18 04:55 Vinicio Rods Not Reportable 04/15/18 04:55 Platelet Estimate Consistent w auto 04/15/18 04:55 Clumped Platelets Not Reportable 04/15/18 04:55 Plt Clumps, EDTA Not Reportable 04/15/18 04:55 Large Platelets Not Reportable 04/15/18 04:55 Giant Platelets Not Reportable 04/15/18 04:55 Platelet Satelliting Not Reportable 04/15/18 04:55 Plt Morphology Comment Not Reportable 04/15/18 04:55 RBC Morphology Normal 04/15/18 04:55 Dimorphic RBCs Not Reportable 04/15/18 04:55 Polychromasia Not Reportable 04/15/18 04:55 Hypochromasia Not Reportable 04/15/18 04:55 Poikilocytosis Not Reportable 04/15/18 04:55 Anisocytosis Not Reportable 04/15/18 04:55 Microcytosis Not Reportable 04/15/18 04:55 Macrocytosis Not Reportable 04/15/18 04:55 Spherocytes Not Reportable 04/15/18 04:55 Pappenheimer Bodies Not Reportable 04/15/18 04:55 Sickle Cells Not Reportable 04/15/18 04:55 Target Cells Not Reportable 04/15/18 04:55 Tear Drop Cells Not Reportable 04/15/18 04:55 Ovalocytes Not Reportable 04/15/18 04:55 Helmet Cells Not Reportable 04/15/18 04:55 Reddy-Chinchilla Bodies Not Reportable 04/15/18 04:55 [place] Rings Not Reportable 04/15/18 04:55 Gal[place] Cells Not Reportable 04/15/18 04:55 Bite Cells Not Reportable 04/15/18 04:55 Crenated Cell Not Reportable 04/15/18 04:55 Elliptocytes Not Reportable 04/15/18 04:55 Acanthocytes (Spur) Not Reportable 04/15/18 04:55 Rouleaux Not Reportable 04/15/18 04:55 Hemoglobin C Crystals Not Reportable 04/15/18 04:55 Schistocytes Not Reportable 04/15/18 04:55 Malaria parasites Not Reportable 04/15/18 04:55 Janes Bodies Not Reportable 04/15/18 04:55 Hem Pathologist Commnt No 04/15/18 04:55 POC ABG pH 7.400 (7.35-7.45) 04/14/18 14:45 POC ABG pCO2 39.6 (35-45) 04/14/18 14:45 POC ABG pO2 136 (80-105) H 04/14/18 14:45 POC ABG HCO3 24.6 04/14/18 14:45 POC ABG Total CO2 26 04/14/18 14:45 POC ABG O2 Sat 99 04/14/18 14:45 POC ABG Base Excess 0 04/14/18 14:45 VBG pH 7.412 (7.320-7.420) 04/14/18 12:53 FiO2 35 % 04/14/18 14:45 Sodium 137 mmol/L (137-145) D 04/16/18 05:12 Potassium 3.2 mmol/L (3.6-5.0) L D 04/16/18 05:12 Chloride 94.6 mmol/L (98-107) L 04/16/18 05:12 Carbon Dioxide 32 mmol/L (22-30) H D 04/16/18 05:12 Anion Gap 14 mmol/L 04/16/18 05:12 BUN 8 mg/dL (9-20) L 04/16/18 05:12 Creatinine 0.5 mg/dL (0.8-1.5) L 04/16/18 05:12 Estimated GFR > 60 ml/min 04/16/18 05:12 BUN/Creatinine Ratio 16 % 04/16/18 05:12 Glucose 104 mg/dL (75-100) H 04/16/18 05:12 Lactic Acid 1.50 mmol/L (0.7-2.0) 04/14/18 23:05 Calcium 9.0 mg/dL (8.4-10.2) 04/16/18 05:12 Total Bilirubin 0.40 mg/dL (0.1-1.2) 04/14/18 12:53 AST 19 units/L (5-40) 04/14/18 12:53 ALT 21 units/L (7-56) 04/14/18 12:53 Alkaline Phosphatase 123 units/L (35-129) 04/14/18 12:53 Troponin T < 0.010 ng/mL (0.00-0.029) 04/14/18 12:53 NT-Pro-B Natriuret Pep 26.47 pg/mL (0-450) 04/14/18 14:17 Total Protein 8.6 g/dL (6.3-8.2) H 04/14/18 12:53 Albumin 3.9 g/dL (3.9-5) 04/14/18 12:53 Albumin/Globulin Ratio 0.8 % 04/14/18 12:53 Urine Color Jessy (Yellow) 04/14/18 15:08 Urine Turbidity Clear (Clear) 04/14/18 15:08 Urine pH 7.0 (5.0-7.0) 04/14/18 15:08 Ur Specific [place] 1.029 (1.003-1.030) 04/14/18 15:08 Urine Protein 100 mg/dl mg/dL (Negative) 04/14/18 15:08 Urine Glucose (UA) Neg mg/dL (Negative) 04/14/18 15:08 Urine Ketones Neg mg/dL (Negative) 04/14/18 15:08 Urine Blood Neg (Negative) 04/14/18 15:08 Urine Nitrite Neg (Negative) 04/14/18 15:08 Urine Bilirubin Neg (Negative) 04/14/18 15:08 Urine Urobilinogen 4.0 mg/dL (<2.0) 04/14/18 15:08 Ur Leukocyte Esterase Neg (Negative) 04/14/18 15:08 Urine WBC (Auto) 2.0 /HPF (0.0-6.0) 04/14/18 15:08 Urine RBC (Auto) 2.0 /HPF (0.0-6.0) 04/14/18 15:08 U Epithel Cells (Auto) < 1.0 /HPF (0-13.0) 04/14/18 15:08 Urine Mucus 3+ /HPF 04/14/18 15:08 Urine Yeast (Budding) Few /HPF 04/14/18 15:08 Influenza A (Rapid) Negative (Negative) 04/14/18 Unknown Influenza B (Rapid) Negative (Negative) 04/14/18 Unknown Group A Strep Rapid Negative (Negative) 04/14/18 Unknown Nutrition/Malnutrition Assess - Dietary Evaluation Nutrition/Malnutrition Findings: Nutrition Notes Start: 04/15/18 10:25 Freq: Status: Active Protocol: Document 04/15/18 10:25 [email or web address] (Rec: 04/15/18 10:30 [email or web address]) Nutrition Notes Need for Assessment generated from: MD Order,psych np Initial or Follow up Assessment Current Diagnosis Sepsis,Hypertension, Respiratory Failure Other Pertinent Diagnosis Seizure D/O, Cerebral Palsy Current Diet NPO Labs/Tests Na 130 Pertinent Medications Lasix, Lactulose, Scopolamine Height 5 ft 3 in Weight 74.8 kg [place] Body Weight (kg) 56.36 BMI 29.2 Weight Status Overweight Subjective/Other Information RD consulted for TF; pt has PEG tube. Pt also screened for hx of receiving NTR support and chewing difficulty . Burn Absent Trauma Absent Difficulty In Swallowing #1 Nutrition Diagnosis Inadequate oral intake Etiology resp failure As Evidenced by Signs and Symptoms pt NPO and requires EN support to meet nutrient needs Is patient on ventilator? No Is Patient Ambulatory and/or Out of Bed No REE-([facility]-confined to bed) 1837.176 Calculation Used for Recommendations [facility] Additional Notes Pro needs 0.8-1g/k-75g/ day Fluid needs per MD Nutrition Intervention Nutrition Support: Osmolite 1.5 at 50ml/hr with 150ml water flush q4h. Kcal 1,800 Protein (gm) 75 Fluid (mL) 914 Goal #1 TF tolerance Goal #2 TF to meet at least 80% energy and pro needs Anticipated Discharge Needs: Continue Osmolite 1.5 (or equivalent) at 50ml/hr with 150ml water flush q4h Follow-Up By: 04/17/18 Additional Comments F/U: new TF, Na lab
[2018-04-16] MEDS: FLAGYL 500 MG/100 ML 500 MG/100 ML BAG IV SCH ×2 (18:12→22:26)
[2018-04-16] MEDS: TYLENOL FEEDTUBE PRN (22:26)
[2018-04-17] MEDS: VANCOMYCIN 1,500 MG in NACL 0.9% 500 ML 500 ML IV SCH (05:10)
[2018-04-17 05:39] LABS: Amorphous Crystals,Urine 3+; Bacteria,Urine 3+ /HPF (Negative); Bilirubin,Urine NEG (Negative); Blood,Urine LG (Negative); Color,Urine Yellow (Yellow); Mucus,Urine 2+ /HPF; Urobilinogen,Urine < 2.0 mg/dL (<2.0)
[2018-04-17 05:40] LABS: RBC,Urine > 182.0 /HPF (0.0-6.0)
[2018-04-17] MEDS: FLAGYL 500 MG/100 ML 500 MG/100 ML BAG IV SCH ×3 (05:50→22:09)
[2018-04-17] MEDS: ROCEPHIN/NS 2 GM/100 ML 2 GM/100 ML BAG IV SCH (05:50)
[2018-04-17] MEDS: SODIUM CHLORIDE FLUSH SYRINGE 10 ML IV SCH ×3 (05:50→22:07)
[2018-04-17 06:19] LABS: Hematocrit 41.2 % (35.5-45.6); Hemoglobin 13.9 gm/dl (11.8-15.2); Mean Corpuscular HGB Conc 34 % (32-34); Mean Corpuscular Volume 84 fl (84-94); Platelet Count 343 K/mm3 (140-440); Red Blood Count 4.89 M/mm3 (3.65-5.03); Red Cell Distribution Width 13.8 % (13.2-15.2)
[2018-04-17 06:47] LABS: Calcium 9.4 mg/dL (8.4-10.2)
--- NOTE | 2018-04-17 07:57 | Progress Note ---
Assessment and Plan Assessment and plan: 43 YO Male with HTN, Seizure Disorder, Cerebal Palsy presents to ED for evaluation. Pt is lethargic and nonverbal at baseline and unable to provide history. Pt history taken from mother who is at bedside during exam and interview. per mother, the patient has experienced shortness of breath today and felt like he was having fever, and just "didnt look right". EMS notified, and upon arrival the patient was found to have respiratory distress, with excess oral secretions in his oral pharynx. Pt transported to [facility] for further care. Pt seen and evaluated in ED and found to have Sepsis, as well as Acute Respiratory Failure. Pt admitted to IMCU and initiated on sepsis protocol. Primary care physician is Dr. Scott. CXR: 04/16/17 : IMPRESSION: 1. Mild prominence of the bronchopulmonary markings; DDX includes mild noncardiogenic pulmonary congestion, bronchitis, and developing bronchopneumonia in the appropriate clinical setting. Clinical correlation is advised. 2. Bone Increased opacity in the right lung base with elevation of the right hemidiaphragm in keeping with basilar atelectasis and/or small pleural effusion; cannot rule out a pneumonic infiltrate in the appropriat e clinical setting. Recommend clinical correlation and appropriate followup evaluation as clinically warranted. Although Clinically improving, his o2 requirements is down to nasal cannula without any further increase in wob, he is still with low grade fever. Discontinue Lasix, give 2 separate bolus of Normal saline and repeat BUN/Creatinine in 6 hours Atalectasis: Start Chest PT. Also teach mother how to perform this on discharge. (1) Sepsis Current Visit: Yes Status: Acute Qualifiers: Sepsis type: sepsis due to unspecified organism Qualified Code(s): A41.9 - Sepsis, unspecified organism Plan to address problem: Sepsis Protocol:Continue IMCU care, IVF resuscitation, monitor uop q shift, Blood cultures, URINE culture so far with no growth. Possible aspiration pneumonia considering on admission patient noted for oropharyngeal congestion and gurgling prior to admission, hence, continue treatment for aspiration. ID consult. continue abx per them discontinue femoral central line and place midline. Throat culture pending (2) Respiratory failure Current Visit: Yes Status: Acute Qualifiers: Chronicity: acute Respiratory failure complication: hypoxia Qualified Cod e(s): J96.01 - Acute respiratory failure with hypoxia Plan to address problem: Supplemental oxygen, nebulizer therapy, pulse oximetry, ABG, chest x ray, NIPPV as clinically indicated. Possible Aspiration related. Patients mom, states that the patient gets some oral fed intermittently, has infrequent nausea with vomiting. Scopolamine due to secretion management (3) Pulmonary vascular congestion -Echo noted- EF 55-60 (4) ZAIRE secondary to vasomotor nephropathy -start gentle hydration (5) Metabolic Acidosis Bicarb iv x 1 (6) Hyponatremia syndrome Current Visit: Yes Status: Acute Plan to address problem: IVF resuscitation therapy, monitor uop q shift, repeat bmp, (7) Mental Retardation secondary To CP Continue current management (8) Hypokalemia Replace (9)DVT prophylaxis Current Visit: Yes Status: Acute Plan to address problem: SCD to BLE while in bed. Discussed with mother and nursings staff. History Interval history: Patient seen and examined, remains on nasal cannula, mom at the bedside, no new fever, breathing improving, still with intermittent fever, no further gurgling noted Hospitalist Physical - Physical exam Narrative exam: General appearance: Present: mild distress - EENT Eyes: Present: PERRL ENT: hearing intact, clear oral mucosa - Neck Neck: Present: supple, normal ROM - Respiratory Respiratory effort: normal Respiratory: bilateral: diminished, crackles - Cardiovascular Rhythm: other (tachycardia) Heart Sounds: Present: S1 & S2. Absent: rub, click - Extremities Extremities: pulses symmetrical, No edema Peripheral Pulses: abnormal (capillary refill greater than 3.5 seconds) - Abdominal General gastrointestinal: Present: soft, non-tender, non-distended, normal bowel sounds Male genitourinary: Present: normal - Integumentary Integumentary: Present: clear, warm, dry - Musculoskeletal Musculoskeletal: generalized weakness, contracted - Psychiatric Psychiatric: no appropriate mood/affect, no intact judgment & insight, no memory intact - Neurologic Neurologic: CNII-XII intact, contracted - Constitutional Vitals: Temp Pulse Resp BP Pulse Ox 100.8 F H 83 19 104/74 100 04/17/18 07:00 04/17/18 06:53 04/17/18 06:53 04/17/18 06:40 04/17/18 06:53 General appearance: Present: mild distress Results - Labs CBC & Chem 7: 04/17/18 06:01 04/17/18 11:20 Labs: Laboratory Last Values WBC 19.4 K/mm3 (4.5-11.0) H 04/17/18 06:01 RBC 4.89 M/mm3 (3.65-5.03) 04/17/18 06:01 Hgb 13.9 gm/dl (11.8-15.2) 04/17/18 06:01 Hct 41.2 % (35.5-45.6) 04/17/18 06:01 MCV 84 fl (84-94) 04/17/18 06:01 MCH 28 pg (28-32) 04/17/18 06:01 MCHC 34 % (32-34) 04/17/18 06:01 RDW 13.8 % (13.2-15.2) 04/17/18 06:01 Plt Count 343 K/mm3 (140-440) 04/17/18 06:01 Add Manual Diff Complete 04/15/18 04:55 Total Counted 100 04/15/18 04:55 Seg Neuts % (Manual) 86.0 % (40.0-70.0) H 04/15/18 04:55 Band Neutrophils % 2.0 % 04/15/18 04:55 Lymphocytes % (Manual) 3.0 % (13.4-35.0) L 04/15/18 04:55 Reactive Lymphs % (Man) 0 % 04/15/18 04:55 Monocytes % (Manual) 9.0 % (0.0-7.3) H 04/15/18 04:55 Eosinophils % (Manual) 0 % (0.0-4.3) 04/15/18 04:55 Basophils % (Manual) 0 % (0.0-1.8) 04/15/18 04:55 Metamyelocytes % 0 % 04/15/18 04:55 Myelocytes % 0 % 04/15/18 04:55 Promyelocytes % 0 % 04/15/18 04:55 Blast Cells % 0 % 04/15/18 04:55 Nucleated RBC % Not Reportable 04/15/18 04:55 Seg Neutrophils # Man 24.3 K/mm3 (1.8-7.7) H 04/15/18 04:55 Band Neutrophils # 0.6 K/mm3 04/15/18 04:55 Lymphocytes # (Manual) 0.8 K/mm3 (1.2-5.4) L 04/15/18 04:55 Abs React Lymphs (Man) 0.0 K/mm3 04/15/18 04:55 Monocytes # (Manual) 2.5 K/mm3 (0.0-0.8) H 04/15/18 04:55 Eosinophils # (Manual) 0.0 K/mm3 (0.0-0.4) 04/15/18 04:55 Basophils # (Manual) 0.0 K/mm3 (0.0-0.1) 04/15/18 04:55 Metamyelocytes # 0.0 K/mm3 04/15/18 04:55 Myelocytes # 0.0 K/mm3 04/15/18 04:55 Promyelocytes # 0.0 K/mm3 04/15/18 04:55 Blast Cells # 0.0 K/mm3 04/15/18 04:55 WBC Morphology Not Reportable 04/15/18 04:55 Hypersegmented Neuts Not Reportable 04/15/18 04:55 Hyposegmented Neuts Not Reportable 04/15/18 04:55 Hypogranular Neuts Not Reportable 04/15/18 04:55 Smudge Cells Not Reportable 04/15/18 04:55 Toxic Granulation Not Reportable 04/15/18 04:55 Toxic Vacuolation Not Reportable 04/15/18 04:55 Dohle Bodies Not Reportable 04/15/18 04:55 Pelger-Huet Anomaly Not Reportable 04/15/18 04:55 Vinicio Rods Not Reportable 04/15/18 04:55 Platelet Estimate Consistent w auto 04/15/18 04:55 Clumped Platelets Not Reportable 04/15/18 04:55 Plt Clumps, EDTA Not Reportable 04/15/18 04:55 Large Platelets Not Reportable 04/15/18 04:55 Giant Platelets Not Reportable 04/15/18 04:55 Platelet Satelliting Not Reportable 04/15/18 04:55 Plt Morphology Comment Not Reportable 04/15/18 04:55 RBC Morphology Normal 04/15/18 04:55 Dimorphic RBCs Not Reportable 04/15/18 04:55 Polychromasia Not Reportable 04/15/18 04:55 Hypochromasia Not Reportable 04/15/18 04:55 Poikilocytosis Not Reportable 04/15/18 04:55 Anisocytosis Not Reportable 04/15/18 04:55 Microcytosis Not Reportable 04/15/18 04:55 Macrocytosis Not Reportable 04/15/18 04:55 Spherocytes Not Reportable 04/15/18 04:55 Pappenheimer Bodies Not Reportable 04/15/18 04:55 Sickle Cells Not Reportable 04/15/18 04:55 Target Cells Not Reportable 04/15/18 04:55 Tear Drop Cells Not Reportable 04/15/18 04:55 Ovalocytes Not Reportable 04/15/18 04:55 Helmet Cells Not Reportable 04/15/18 04:55 Reddy-Frank Bodies Not Reportable 04/15/18 04:55 [place] Rings Not Reportable 04/15/18 04:55 [place] Cells Not Reportable 04/15/18 04:55 Bite Cells Not Reportable 04/15/18 04:55 Crenated Cell Not Reportable 04/15/18 04:55 Elliptocytes Not Reportable 04/15/18 04:55 Acanthocytes (Spur) Not Reportable 04/15/18 04:55 Rouleaux Not Reportable 04/15/18 04:55 Hemoglobin C Crystals Not Reportable 04/15/18 04:55 Schistocytes Not Reportable 04/15/18 04:55 Malaria parasites Not Reportable 04/15/18 04:55 Janes Bodies Not Reportable 04/15/18 04:55 Hem Pathologist Commnt No 04/15/18 04:55 POC ABG pH 7.400 (7.35-7.45) 04/14/18 14:45 POC ABG pCO2 39.6 (35-45) 04/14/18 14:45 POC ABG pO2 136 (80-105) H 04/14/18 14:45 POC ABG HCO3 24.6 04/14/18 14:45 POC ABG Total CO2 26 04/14/18 14:45 POC ABG O2 Sat 99 04/14/18 14:45 POC ABG Base Excess 0 04/14/18 14:45 VBG pH 7.412 (7.320-7.420) 04/14/18 12:53 FiO2 35 % 04/14/18 14:45 Sodium 141 mmol/L (137-145) 04/17/18 06:01 Potassium 3.8 mmol/L (3.6-5.0) 04/17/18 06:01 Chloride 95.2 mmol/L (98-107) L 04/17/18 06:01 Carbon Dioxide 32 mmol/L (22-30) H 04/17/18 06:01 Anion Gap 18 mmol/L 04/17/18 06:01 BUN 21 mg/dL (9-20) H 04/17/18 06:01 Creatinine 2.0 mg/dL (0.8-1.5) H D 04/17/18 06:01 Estimated GFR 44 ml/min 04/17/18 06:01 BUN/Creatinine Ratio 11 % 04/17/18 06:01 Glucose 117 mg/dL (75-100) H 04/17/18 06:01 Lactic Acid 1.50 mmol/L (0.7-2.0) 04/14/18 23:05 Calcium 9.4 mg/dL (8.4-10.2) 04/17/18 06:01 Total Bilirubin 0.40 mg/dL (0.1-1.2) 04/14/18 12:53 AST 19 units/L (5-40) 04/14/18 12:53 ALT 21 units/L (7-56) 04/14/18 12:53 Alkaline Phosphatase 123 units/L (35-129) 04/14/18 12:53 Troponin T < 0.010 ng/mL (0.00-0.029) 04/14/18 12:53 NT-Pro-B Natriuret Pep 26.47 pg/mL (0-450) 04/14/18 14:17 Total Protein 8.6 g/dL (6.3-8.2) H 04/14/18 12:53 Albumin 3.9 g/dL (3.9-5) 04/14/18 12:53 Albumin/Globulin Ratio 0.8 % 04/14/18 12:53 Urine Color Yellow (Yellow) 04/17/18 04:40 Urine Turbidity Turbid (Clear) 04/17/18 04:40 Urine pH 5.0 (5.0-7.0) 04/17/18 04:40 Ur Specific [place] 1.020 (1.003-1.030) 04/17/18 04:40 Urine Protein 100 mg/dl mg/dL (Negative) 04/17/18 04:40 Urine Glucose (UA) Neg mg/dL (Negative) 04/17/18 04:40 Urine Ketones Neg mg/dL (Negative) 04/17/18 04:40 Urine Blood Lg (Negative) 04/17/18 04:40 Urine Nitrite Neg (Negative) 04/17/18 04:40 Urine Bilirubin Neg (Negative) 04/17/18 04:40 Urine Urobilinogen < 2.0 mg/dL (<2.0) 04/17/18 04:40 Ur Leukocyte Esterase Mod (Negative) 04/17/18 04:40 Urine WBC (Auto) 150.0 /HPF (0.0-6.0) H 04/17/18 04:40 Urine RBC (Auto) > 182.0 /HPF (0.0-6.0) 04/17/18 04:40 U Epithel Cells (Auto) 3.0 /HPF (0-13.0) 04/17/18 04:40 Urine Bacteria (Auto) 3+ /HPF (Negative) 04/17/18 04:40 Amorphous Crystals 3+ 04/17/18 04:40 Urine Mucus 2+ /HPF 04/17/18 04:40 Urine Yeast (Budding) Few /HPF 04/14/18 15:08 Vancomycin Trough 27.7 ug/mL (5.0-20.0) H 04/16/18 20:48 Influenza A (Rapid) Negative (Negative) 04/14/18 Unknown Influenza B (Rapid) Negative (Negative) 04/14/18 Unknown Group A Strep Rapid Negative (Negative) 04/14/18 Unknown Nutrition/Malnutrition Assess - Dietary Evaluation Nutrition/Malnutrition Findings: Nutrition Notes Start: 04/15/18 10:25 Freq: Status: Active Protocol: Document 04/15/18 10:25 RITYE (Rec: 04/15/18 10:30 RITYE [email or web address]) Nutrition Notes Need for Assessment generated from: MD Order,molder bench Initial or Follow up Assessment Current Diagnosis Sepsis,Hypertension, Respiratory Failure Other Pertinent Diagnosis Seizure D/O, Cerebral Palsy Current Diet NPO Labs/Tests Na 130 Pertinent Medications Lasix, Lactulose, Scopolamine Height 5 ft 3 in Weight 74.8 kg [place] Body Weight (kg) 56.36 BMI 29.2 Weight Status Overweight Subjective/Other Information RD consulted for TF; pt has PEG tube. Pt also screened for hx of receiving NTR support and chewing difficulty . Burn Absent Trauma Absent Difficulty In Swallowing #1 Nutrition Diagnosis Inadequate oral intake Etiology resp failure As Evidenced by Signs and Symptoms pt NPO and requires EN support to meet nutrient needs Is patient on ventilator? No Is Patient Ambulatory and/or Out of Bed No REE-([facility]-confined to bed) 1837.176 Calculation Used for Recommendations [facility] Additional Notes Pro needs 0.8-1g/k-75g/ day Fluid needs per MD Nutrition Intervention Nutrition Support: Osmolite 1.5 at 50ml/hr with 150ml water flush q4h. Kcal 1,800 Protein (gm) 75 Fluid (mL) 914 Goal #1 TF tolerance Goal #2 TF to meet at least 80% energy and pro needs Anticipated Discharge Needs: Continue Osmolite 1.5 (or equivalent) at 50ml/hr with 150ml water flush q4h Follow-Up By: 04/17/18 Additional Comments F/U: new TF, Na lab
[2018-04-17] MEDS ORDERED: NACL 0.9% 500 ML 500 ML IV ONE ×2 (08:00→13:00)
--- NOTE | 2018-04-17 10:35 | Progress Note ---
Assessment and Plan Cultures: 04/14/18 Blood: no growth to date 04/14/18 Urine; no growth to date 03/17/18 Group A Strep Throat: pending A/P: 43-year-old male with a past medical history of of HTN, Seizure disorder, CP, admitted with: 1, Sepsis on Admission: Improved,still fever, leukocytosis. evidenced by fever, tachycardia, increased lactic acid, leukocytosis. etiology unclear,, likely related to acute respiratory failure vs aspiration. Hx of +NGT with chest congestion and cough. U/A negative. Urine and blood cultures show no growth to date. Influenza negative.. Group A strep negative, culture pending.. Chest xray shows vascular congestion, but no consolidations. Currently being treated with ceftriaxone and vancomycin. -Repeat CXR 04/16/18: DDX includes mild noncardiogenic pulmonary congestion, b ronchitis, and developing bronchopneumonia in the appropriate clinical setting. -TTE no valvular vegetation 2. Acute Hypoxemic Respiratory Failure etiology volume overload vs aspiration. Chest Xray shows Mild cardiomegaly and pulmonary venous congestion.,Currently on Venti mask 50%. 3. Mental Retardation secondary to CP: Plan: -f/u Group A throat culture -f/u urine culture -continue ceftriaxon and vancomycin for now -Flu PCR ordered, not collected -Continue Flagyl 500mg IV every 8 hours, D2 -f/u repeat blood cultures [facility] M: [phone] O:[phone] Subjective Date of service: 04/17/18 Interval history: patient seen and examined. Alert, no acute distress observed. + fevers Objective - Exam Narrative Exam: Constitutional: Awake, alert. CP No acute distress Head, Ears, Nose: Normocephalic, atraumatic. External ears, nose normal Eyes: Conjunctivae/corneas clear. No icterus. No ptosis. Neck: Supple, no meningeal signs Oral: dentition poor. no thrush . + macroglossia Cardiovascular: S1, S2 normal. Respiratory: 50% venti mask, bilateral rhonchi GI: Soft, non-tender; bowel sounds normal. No peritoneal signs Musculoskeletal: No pedal edema, no cyanosis., + hand contractures Skin: No rash or abscess. Hem/Lymphatic: No palpable cervical or supraclavicular nodes. No lymphangitis Psych: CP Neurological: CP, - Constitutional Vitals: Vital Signs Temp Pulse Resp BP Pulse Ox 100.8 F H 83 19 104/74 99 04/17/18 07:00 04/17/18 06:53 04/17/18 06:53 04/17/18 06:40 04/17/18 10:07 Temperature -Last 24 Hours Temperature 100.8 F Temperature 99.5 F Temperature 101.9 F Temperature 101.9 F Temperature 101.0 F Temperature 99.2 F - Labs CBC & Chem 7: 04/17/18 06:01 04/17/18 11:20 Labs: Abnormal lab results 04/16/18 04/17/18 04/17/18 Range/Units 20:48 04:40 06:01 WBC 19.4 H (4.5-11.0) K/mm3 Chloride (98-107) mmol/L Carbon Dioxide (22-30) mmol/L BUN (9-20) mg/dL Creatinine (0.8-1.5) mg/dL Glucose (75-100) mg/dL Urine WBC (Auto) 150.0 H (0.0-6.0) /HPF Vancomycin Trough 27.7 H (5.0-20.0) ug/mL 04/17/18 Range/Units 06:01 WBC (4.5-11.0) K/mm3 Chloride 95.2 L (98-107) mmol/L Carbon Dioxide 32 H (22-30) mmol/L BUN 21 H (9-20) mg/dL Creatinine 2.0 H D (0.8-1.5) mg/dL Glucose 117 H (75-100) mg/dL Urine WBC (Auto) (0.0-6.0) /HPF Vancomycin Trough (5.0-20.0) ug/mL
[2018-04-17] MEDS: LOPRESSOR PO SCH (10:52)
[2018-04-17] MEDS ORDERED: NACL 0.9% 500 ML 500 ML ONE (10:52)
[2018-04-17] MEDS: TYLENOL FEEDTUBE PRN (10:56)
[2018-04-17 12:17] LABS: Calcium 9.3 mg/dL (8.4-10.2)
[2018-04-17] MEDS: NACL 0.9% 1000 ML 1,000 ML IV SCH (20:42)
[2018-04-18] MEDS: NACL 0.9% 1000 ML 1,000 ML IV SCH ×2 (04:21→13:13)
[2018-04-18 05:45] LABS: Hematocrit 41.1 % (35.5-45.6); Hemoglobin 13.7 gm/dl (11.8-15.2); Mean Corpuscular HGB Conc 33 % (32-34); Mean Corpuscular Volume 84 fl (84-94); Platelet Count 288 K/mm3 (140-440); Red Blood Count 4.88 M/mm3 (3.65-5.03)
[2018-04-18 06:14] LABS: Calcium 8.6 mg/dL (8.4-10.2)
[2018-04-18] MEDS: FLAGYL 500 MG/100 ML 500 MG/100 ML BAG IV SCH ×3 (06:14→22:36)
--- NOTE | 2018-04-18 08:44 | Progress Note ---
Assessment and Plan Assessment and plan: 43 YO Male with HTN, Seizure Disorder, Cerebal Palsy presents to ED for evaluation. Pt is lethargic and nonverbal at baseline and unable to provide history. Pt history taken from mother who is at bedside during exam and interview. per mother, the patient has experienced shortness of breath today and felt like he was having fever, and just "didnt look right". EMS notified, and upon arrival the patient was found to have respiratory distress, with excess oral secretions in his oral pharynx. Pt transported to [facility] for further care. Pt seen and evaluated in ED and found to have Sepsis, as well as Acute Respiratory Failure. Pt admitted to IMCU and initiated on sepsis protocol. Primary care physician is Dr. Scott. CXR: 04/16/17 : IMPRESSION: 1. Mild prominence of the bronchopulmonary markings; DDX includes mild noncardiogenic pulmonary congestion, bronchitis, and developing bronchopneumonia in the appropriate clinical setting. Clinical correlation is advised. 2. Bone Increased opacity in the right lung base with elevation of the right hemidiaphragm in keeping with basilar atelectasis and/or small pleural effusion; cannot rule out a pneumonic infiltrate in the appropriat e clinical setting. Recommend clinical correlation and appropriate followup evaluation as clinically warranted. Although Clinically improving, his o2 requirements is down to nasal cannula without any further increase in wob, he is still with low grade fever. Discontinue Lasix, give 2 separate bolus of Normal saline and repeat BUN/Creatinine in 6 hours Atalectasis: Start Chest PT. Also teach mother how to perform this on discharge. (1) Sepsis Current Visit: Yes Status: Acute Qualifiers: Sepsis type: sepsis due to unspecified organism Qualified Code(s): A41.9 - Sepsis, unspecified organism Plan to address problem: Sepsis Protocol:Continue IMCU care, IVF resuscitation, monitor uop q shift, Blood cultures, URINE culture so far with no growth. Possible aspiration pneumonia considering on admission patient noted for oropharyngeal congestion and gurgling prior to admission, hence, continue treatment for aspiration. ID consult. continue abx per them discontinue femoral central line and place midline. Throat culture pending (2) Respiratory failure Current Visit: Yes Status: Acute Qualifiers: Chronicity: acute Respiratory failure complication: hypoxia Qualified Cod e(s): J96.01 - Acute respiratory failure with hypoxia Plan to address problem: Supplemental oxygen, nebulizer therapy, pulse oximetry, ABG, chest x ray, NIPPV as clinically indicated. Possible Aspiration related. Patients mom, states that the patient gets some oral fed intermittently, has infrequent nausea with vomiting. Scopolamine due to secretion management (3) Pulmonary vascular congestion -Echo noted- EF 55-60 (4) ZAIRE secondary to vasomotor nephropathy -Consult Dental Front Office Assistant -Continue IV fluids (5) Metabolic Acidosis Bicarb iv x 1 (6) Hyponatremia syndrome Current Visit: Yes Status: Acute Plan to address problem: IVF resuscitation therapy, monitor uop q shift, repeat bmp, (7) Mental Retardation secondary To CP Continue current management (8) Hypokalemia Replace (9)DVT prophylaxis Current Visit: Yes Status: Acute Plan to address problem: SCD to BLE while in bed. Discussed with mother and nursings staff. History Interval history: Patient seen and examined, remains on nasal cannula,no new complaints. Hospitalist Physical - Physical exam Narrative exam: General appearance: Present: mild distress - EENT Eyes: Present: PERRL ENT: hearing intact, clear oral mucosa - Neck Neck: Present: supple, normal ROM - Respiratory Respiratory effort: normal Respiratory: bilateral: diminished, crackles - Cardiovascular Rhythm: other Regular with intermittent tachycardia Heart Sounds: Present: S1 & S2. Absent: rub, click - Extremities Extremities: pulses symmetrical, No edema Peripheral Pulses: abnormal (capillary refill greater than 3.5 seconds) - Abdominal General gastrointestinal: Present: soft, non-tender, non-distended, normal bowel sounds Male genitourinary: Present: normal - Integumentary Integumentary: Present: clear, warm, dry - Musculoskeletal Musculoskeletal: generalized weakness, contracted - Psychiatric Psychiatric: no appropriate mood/affect, no intact judgment & insight, no memory intact - Neurologic Neurologic: CNII-XII intact, contracted - Constitutional Vitals: Temp Pulse Resp BP Pulse Ox 99.6 F 112 H 30 H 139/91 99 04/18/18 04:00 04/18/18 06:00 04/18/18 06:00 04/18/18 06:00 04/18/18 06:00 General appearance: Present: mild distress Results - Labs CBC & Chem 7: 04/18/18 05:27 04/18/18 05:27 Labs: Laboratory Last Values WBC 16.9 K/mm3 (4.5-11.0) H 04/18/18 05:27 RBC 4.88 M/mm3 (3.65-5.03) 04/18/18 05:27 Hgb 13.7 gm/dl (11.8-15.2) 04/18/18 05:27 Hct 41.1 % (35.5-45.6) 04/18/18 05:27 MCV 84 fl (84-94) 04/18/18 05:27 MCH 28 pg (28-32) 04/18/18 05:27 MCHC 33 % (32-34) 04/18/18 05:27 RDW 14.0 % (13.2-15.2) 04/18/18 05:27 Plt Count 288 K/mm3 (140-440) 04/18/18 05:27 Add Manual Diff Complete 04/15/18 04:55 Total Counted 100 04/15/18 04:55 Seg Neuts % (Manual) 86.0 % (40.0-70.0) H 04/15/18 04:55 Band Neutrophils % 2.0 % 04/15/18 04:55 Lymphocytes % (Manual) 3.0 % (13.4-35.0) L 04/15/18 04:55 Reactive Lymphs % (Man) 0 % 04/15/18 04:55 Monocytes % (Manual) 9.0 % (0.0-7.3) H 04/15/18 04:55 Eosinophils % (Manual) 0 % (0.0-4.3) 04/15/18 04:55 Basophils % (Manual) 0 % (0.0-1.8) 04/15/18 04:55 Metamyelocytes % 0 % 04/15/18 04:55 Myelocytes % 0 % 04/15/18 04:55 Promyelocytes % 0 % 04/15/18 04:55 Blast Cells % 0 % 04/15/18 04:55 Nucleated RBC % Not Reportable 04/15/18 04:55 Seg Neutrophils # Man 24.3 K/mm3 (1.8-7.7) H 04/15/18 04:55 Band Neutrophils # 0.6 K/mm3 04/15/18 04:55 Lymphocytes # (Manual) 0.8 K/mm3 (1.2-5.4) L 04/15/18 04:55 Abs React Lymphs (Man) 0.0 K/mm3 04/15/18 04:55 Monocytes # (Manual) 2.5 K/mm3 (0.0-0.8) H 04/15/18 04:55 Eosinophils # (Manual) 0.0 K/mm3 (0.0-0.4) 04/15/18 04:55 Basophils # (Manual) 0.0 K/mm3 (0.0-0.1) 04/15/18 04:55 Metamyelocytes # 0.0 K/mm3 04/15/18 04:55 Myelocytes # 0.0 K/mm3 04/15/18 04:55 Promyelocytes # 0.0 K/mm3 04/15/18 04:55 Blast Cells # 0.0 K/mm3 04/15/18 04:55 WBC Morphology Not Reportable 04/15/18 04:55 Hypersegmented Neuts Not Reportable 04/15/18 04:55 Hyposegmented Neuts Not Reportable 04/15/18 04:55 Hypogranular Neuts Not Reportable 04/15/18 04:55 Smudge Cells Not Reportable 04/15/18 04:55 Toxic Granulation Not Reportable 04/15/18 04:55 Toxic Vacuolation Not Reportable 04/15/18 04:55 Dohle Bodies Not Reportable 04/15/18 04:55 Pelger-Huet Anomaly Not Reportable 04/15/18 04:55 Vinicio Rods Not Reportable 04/15/18 04:55 Platelet Estimate Consistent w auto 04/15/18 04:55 Clumped Platelets Not Reportable 04/15/18 04:55 Plt Clumps, EDTA Not Reportable 04/15/18 04:55 Large Platelets Not Reportable 04/15/18 04:55 Giant Platelets Not Reportable 04/15/18 04:55 Platelet Satelliting Not Reportable 04/15/18 04:55 Plt Morphology Comment Not Reportable 04/15/18 04:55 RBC Morphology Normal 04/15/18 04:55 Dimorphic RBCs Not Reportable 04/15/18 04:55 Polychromasia Not Reportable 04/15/18 04:55 Hypochromasia Not Reportable 04/15/18 04:55 Poikilocytosis Not Reportable 04/15/18 04:55 Anisocytosis Not Reportable 04/15/18 04:55 Microcytosis Not Reportable 04/15/18 04:55 Macrocytosis Not Reportable 04/15/18 04:55 Spherocytes Not Reportable 04/15/18 04:55 Pappenheimer Bodies Not Reportable 04/15/18 04:55 Sickle Cells Not Reportable 04/15/18 04:55 Target Cells Not Reportable 04/15/18 04:55 Tear Drop Cells Not Reportable 04/15/18 04:55 Ovalocytes Not Reportable 04/15/18 04:55 Helmet Cells Not Reportable 04/15/18 04:55 [place] Bodies Not Reportable 04/15/18 04:55 [place] Rings Not Reportable 04/15/18 04:55 Hye Cells Not Reportable 04/15/18 04:55 Bite Cells Not Reportable 04/15/18 04:55 Crenated Cell Not Reportable 04/15/18 04:55 Elliptocytes Not Reportable 04/15/18 04:55 Acanthocytes (Spur) Not Reportable 04/15/18 04:55 Rouleaux Not Reportable 04/15/18 04:55 Hemoglobin C Crystals Not Reportable 04/15/18 04:55 Schistocytes Not Reportable 04/15/18 04:55 Malaria parasites Not Reportable 04/15/18 04:55 Janes Bodies Not Reportable 04/15/18 04:55 Hem Pathologist Commnt No 04/15/18 04:55 POC ABG pH 7.400 (7.35-7.45) 04/14/18 14:45 POC ABG pCO2 39.6 (35-45) 04/14/18 14:45 POC ABG pO2 136 (80-105) H 04/14/18 14:45 POC ABG HCO3 24.6 04/14/18 14:45 POC ABG Total CO2 26 04/14/18 14:45 POC ABG O2 Sat 99 04/14/18 14:45 POC ABG Base Excess 0 04/14/18 14:45 VBG pH 7.412 (7.320-7.420) 04/14/18 12:53 FiO2 35 % 04/14/18 14:45 Sodium 142 mmol/L (137-145) 04/18/18 05:27 Potassium 4.1 mmol/L (3.6-5.0) 04/18/18 05:27 Chloride 103.7 mmol/L (98-107) 04/18/18 05:27 Carbon Dioxide 25 mmol/L (22-30) 04/18/18 05:27 Anion Gap 17 mmol/L 04/18/18 05:27 BUN 26 mg/dL (9-20) H 04/18/18 05:27 Creatinine 3.3 mg/dL (0.8-1.5) H 04/18/18 05:27 Estimated GFR 25 ml/min 04/18/18 05:27 BUN/Creatinine Ratio 8 % 04/18/18 05:27 Glucose 143 mg/dL (75-100) H 04/18/18 05:27 Lactic Acid 1.50 mmol/L (0.7-2.0) 04/14/18 23:05 Calcium 8.6 mg/dL (8.4-10.2) 04/18/18 05:27 Total Bilirubin 0.40 mg/dL (0.1-1.2) 04/14/18 12:53 AST 19 units/L (5-40) 04/14/18 12:53 ALT 21 units/L (7-56) 04/14/18 12:53 Alkaline Phosphatase 123 units/L (35-129) 04/14/18 12:53 Troponin T < 0.010 ng/mL (0.00-0.029) 04/14/18 12:53 NT-Pro-B Natriuret Pep 26.47 pg/mL (0-450) 04/14/18 14:17 Total Protein 8.6 g/dL (6.3-8.2) H 04/14/18 12:53 Albumin 3.9 g/dL (3.9-5) 04/14/18 12:53 Albumin/Globulin Ratio 0.8 % 04/14/18 12:53 Urine Color Yellow (Yellow) 04/17/18 04:40 Urine Turbidity Turbid (Clear) 04/17/18 04:40 Urine pH 5.0 (5.0-7.0) 04/17/18 04:40 Ur Specific [place] 1.020 (1.003-1.030) 04/17/18 04:40 Urine Protein 100 mg/dl mg/dL (Negative) 04/17/18 04:40 Urine Glucose (UA) Neg mg/dL (Negative) 04/17/18 04:40 Urine Ketones Neg mg/dL (Negative) 04/17/18 04:40 Urine Blood Lg (Negative) 04/17/18 04:40 Urine Nitrite Neg (Negative) 04/17/18 04:40 Urine Bilirubin Neg (Negative) 04/17/18 04:40 Urine Urobilinogen < 2.0 mg/dL (<2.0) 04/17/18 04:40 Ur Leukocyte Esterase Mod (Negative) 04/17/18 04:40 Urine WBC (Auto) 150.0 /HPF (0.0-6.0) H 04/17/18 04:40 Urine RBC (Auto) > 182.0 /HPF (0.0-6.0) 04/17/18 04:40 U Epithel Cells (Auto) 3.0 /HPF (0-13.0) 04/17/18 04:40 Urine Bacteria (Auto) 3+ /HPF (Negative) 04/17/18 04:40 Amorphous Crystals 3+ 04/17/18 04:40 Urine Mucus 2+ /HPF 04/17/18 04:40 Urine Yeast (Budding) Few /HPF 04/14/18 15:08 Vancomycin Trough 27.7 ug/mL (5.0-20.0) H 04/16/18 20:48 Influenza A (Rapid) Negative (Negative) 04/14/18 Unknown Influenza B (Rapid) Negative (Negative) 04/14/18 Unknown Group A Strep Rapid Negative (Negative) 04/14/18 Unknown Nutrition/Malnutrition Assess - Dietary Evaluation Nutrition/Malnutrition Findings: Nutrition Notes Start: 04/15/18 10:25 Freq: Status: Active Protocol: Document 04/17/18 16:31 [facility] (Rec: 04/17/18 16:35 [facility] SRW- [id number]) Nutrition Notes Initial or Follow up Reassessment Current Diagnosis Sepsis,Respiratory Failure Other Pertinent Diagnosis Seizure D/O, Cerebral Palsy Current Diet TF - Osmolite 1.5 at 50ml/hr Labs/Tests Na 138 BUN 24 Cr 2.3 Pertinent Medications Reviewed Height 5 ft 3 in Weight 74.8 kg [place] Body Weight (kg) 56.36 BMI 29.2 Subjective/Other Information Pt tolerating TF at goal rate, per RN. Percent of energy/protein needs met: 98% energy 100% pro Burn Absent Trauma Absent #1 Nutrition Diagnosis Inadequate oral intake Diagnosis Progress(for reassessment Continues documentation) Is patient on ventilator? No Is Patient Ambulatory and/or Out of Bed No REE-([facility]-confined to bed) 1837.176 Calculation Used for Recommendations [facility] Additional Notes Pro needs 0.8-1g/k-75g/ day Fluid needs per MD Nutrition Intervention Nutrition Support: Osmolite 1.5 at 50ml/hr with 150ml water flush q4h. Kcal 1,800 Protein (gm) 75 Fluid (mL) 914 Goal #1 TF tolerance Goal #2 TF to meet at least 80% energy and pro needs Follow-Up By: 04/21/18 Additional Comments F/U: renal function
--- NOTE | 2018-04-18 09:30 | Progress Note ---
Assessment and Plan Cultures: 04/14/18 Blood: no growth to date 04/14/18 Urine; no growth to date 03/17/18 Group A Strep Positive A/P: 43-year-old male with a past medical history of of HTN, Seizure disorder, CP, admitted with: 1, Sepsis on Admission: Improved, no fever > 24 hours, evidenced by fever, tachycardia, increased lactic acid, leukocytosis. etiology unclear,, likely related to acute respiratory failure vs aspiration. Hx of +NGT with chest congestion and cough. U/A negative. Urine and blood cultures show no growth to date. Influenza negative.. Group A strep negative, culture pending.. Chest xray shows vascular congestion, but no consolidations. Currently being treated with ceftriaxone and vancomycin. -Repeat CXR 04/16/18: DDX includes mild noncardiogenic pulmonary congestion, bronchitis, and developing bronchopneumonia in the appropriate clinical setting. -TTE no valvular vegetation 2. Acute Hypoxemic Respiratory Failure etiology volume overload vs aspiration. Chest Xray shows Mild cardiomegaly and pulmonary venous congestion.,Currently on 03/13L NC. 3. Mental Retardation secondary to CP: 4. ZAIRE: creatinine trending up. Vancomycin trough 27.7. monitor for supratherapuetic vancomycin levels, target trough 10-20 ug/ml. Antibiotics renally dosed. Plan: -f/u Group A throat culture -f/u urine culture -continue ceftriaxon at 2gms IV every 24 hours, D5 -Discontinue vancomycin -Continue Flagyl 500mg IV every 8 hours, D2 -f/u repeat blood cultures -Flu PCR ordered, not collected -MRSA PCR ordered, not collected Adina Desai NP [facility] M: [id number] O:[phone] Subjective Date of service: 04/18/18 Interval history: patient seen and examined. Alert, no acute distress observed. No fevers. Objective - Exam Narrative Exam: Constitutional: Awake, alert. CP No acute distress Head, Ears, Nose: Normocephalic, atraumatic. External ears, nose normal Eyes: Conjunctivae/corneas clear. No icterus. No ptosis. Neck: Supple, no meningeal signs Oral: dentition poor. no thrush . + macroglossia Cardiovascular: S1, S2 normal. Respiratory: scattered rhonchi, 02/4L nc GI: Soft, non-tender; bowel sounds normal. No peritoneal signs Musculoskeletal: No pedal edema, no cyanosis., + hand contractures Skin: No rash or abscess. Hem/Lymphatic: No palpable cervical or supraclavicular nodes. No lymphangitis Psych: CP Neurological: CP, - Constitutional Vitals: Vital Signs Temp Pulse Resp BP Pulse Ox 99.6 F 112 H 30 H 139/91 99 04/18/18 04:00 04/18/18 06:00 04/18/18 06:00 04/18/18 06:00 04/18/18 06:00 Temperature -Last 24 Hours Temperature 99.6 F Temperature 99.1 F Temperature 98.5 F Temperature 99 F - Labs CBC & Chem 7: 04/18/18 05:27 04/18/18 05:27 Labs: Abnormal lab results 04/17/18 04/18/18 04/18/18 Range/Units 11:20 05:27 05:27 WBC 16.9 H (4.5-11.0) K/mm3 BUN 24 H 26 H (9-20) mg/dL Creatinine 2.3 H 3.3 H (0.8-1.5) mg/dL Glucose 149 H 143 H (75-100) mg/dL
[2018-04-18] MEDS: ROCEPHIN/NS 2 GM/100 ML 2 GM/100 ML BAG IV SCH (09:49)
[2018-04-18] MEDS: LOPRESSOR PO SCH (09:50)
[2018-04-18] MEDS: TRANSDERM-SCOP TD SCH (09:50)
[2018-04-18] MEDS: SODIUM CHLORIDE FLUSH SYRINGE 10 ML IV SCH ×2 (09:51→22:34)
[2018-04-18] MEDS: TYLENOL FEEDTUBE PRN (13:10)
[2018-04-19] MEDS: FLAGYL 500 MG/100 ML 500 MG/100 ML BAG IV SCH ×3 (05:21→21:33)
--- NOTE | 2018-04-19 09:27 | Progress Note ---
Assessment and Plan Assessment and plan: 43 YO Male with HTN, Seizure Disorder, Cerebal Palsy presents to ED for evaluation. Pt is lethargic and nonverbal at baseline and unable to provide history. Pt history taken from mother who is at bedside during exam and interview. per mother, the patient has experienced shortness of breath today and felt like he was having fever, and just "didnt look right". EMS notified, and upon arrival the patient was found to have respiratory distress, with excess oral secretions in his oral pharynx. Pt transported to [facility] for further care. Pt seen and evaluated in ED and found to have Sepsis, as well as Acute Respiratory Failure. Pt admitted to IMCU and initiated on sepsis protocol. Primary care physician is Dr. Scott. CXR: 04/16/17 : IMPRESSION: 1. Mild prominence of the bronchopulmonary markings; DDX includes mild noncardiogenic pulmonary congestion, bronchitis, and developing bronchopneumonia in the appropriate clinical setting. Clinical correlation is advised. 2. Bone Increased opacity in the right lung base with elevation of the right hemidiaphragm in keeping with basilar atelectasis and/or small pleural effusion; cannot rule out a pneumonic infiltrate in the appropriat e clinical setting. Recommend clinical correlation and appropriate followup evaluation as clinically warranted. Although Clinically improving, his o2 requirements is down to nasal cannula without any further increase in wob, he is still with low grade fever. Discontinue Lasix, give 2 separate bolus of Normal saline and repeat BUN/Creatinine in 6 hours Atalectasis: on chest xray. Started on CHEST PHYSIOTHERAPY. Also teach mother how to perform this on discharge. (1) Sepsis Current Visit: Yes Status: Acute Qualifiers: Sepsis type: sepsis due to unspecified organism Qualified Code(s): A41.9 - Sepsis, unspecified organism Plan to address problem: Sepsis Protocol:Continue IMCU care, IVF resuscitation, monitor uop q shift, Blood cultures, URINE culture so far with no growth. Possible aspiration pneumonia considering on admission patient noted for oropharyngeal congestion and gurgling prior to admission, hence, continue treatment for aspiration. ID consult. continue abx per them discontinue femoral central line and place midline- HAS NOT BEEN DONE DUE TO PATIENT SEVERE CONTRACTURE. WILL DISCUSS WITH ID PATIENT STILL HAS INTERMITTENT FEVER. Throat culture- NEGATIVE Leukocytosis improving (2) Respiratory failure Current Visit: Yes Status: Acute Qualifiers: Chronicity: acute Respiratory failure complication: hypoxia Qualified Code(s): J96.01 - Acute respiratory failure with hypoxia Plan to address problem: Supplemental oxygen, nebulizer therapy, NIPPV as NEEDED. Possible Aspiration related. Patients mom, states that the patient gets some oral fed intermittently, has infrequent nausea with vomiting. Scopolamine due to secretion management (3) Pulmonary vascular congestion -Echo noted- EF 55-60 (4) ZAIRE secondary to vasomotor nephropathy -Consult Tavern Operator -Continue IV fluids (5) Metabolic Acidosis Bicarb iv x 1 (6) Hyponatremia syndrome Current Visit: Yes Status: Acute Plan to address problem: IVF resuscitation therapy, monitor uop q shift, repeat bmp, (7) Mental Retardation secondary To CP Continue current management (8) Hypokalemia Replace (9)Complete Immobility due to frailty patient is non mobile and bed bound due to chronic medical condition. (10)DVT prophylaxis Current Visit: Yes Status: Acute Plan to address problem: SCD to BLE while in bed. Discussed with mother and nursings staff. History Interval history: Patient seen and examined, remains on nasal cannula, Mother reports swollen hands but states its chronic, although appears a little more swollen than yesterday. Patient with low grade temp again today Hospitalist Physical - Physical exam Narrative exam: General appearance: Present: mild distress - EENT Eyes: Present: PERRL ENT: hearing intact, clear oral mucosa - Neck Neck: Present: supple, normal ROM - Respiratory Respiratory effort: normal Respiratory: bilateral: diminished, crackles - Cardiovascular Rhythm: other Regular with intermittent tachycardia Heart Sounds: Present: S1 & S2. Absent: rub, click - Extremities Extremities: pulses symmetrical, Trace Edema Bilateral upper ext. Peripheral Pulses: abnormal (capillary refill greater than 3.5 seconds) - Abdominal General gastrointestinal: Present: soft, non-tender, non-distended, normal bowel sounds Male genitourinary: Present: normal - Integumentary Integumentary: Present: clear, warm, dry - Musculoskeletal Musculoskeletal: generalized weakness, contracted - Psychiatric Psychiatric: no appropriate mood/affect, no intact judgment & insight, no memory intact - Neurologic Neurologic: CNII-XII intact, contracted - Constitutional Vitals: Temp Pulse Resp BP Pulse Ox 98.2 F 102 H 17 123/71 93 04/19/18 08:00 04/19/18 08:00 04/19/18 08:00 04/19/18 08:00 04/19/18 08:00 General appearance: Present: mild distress Results - Labs CBC & Chem 7: 04/18/18 05:27 04/18/18 05:27 Labs: Laboratory Last Values WBC 16.9 K/mm3 (4.5-11.0) H 04/18/18 05:27 RBC 4.88 M/mm3 (3.65-5.03) 04/18/18 05:27 Hgb 13.7 gm/dl (11.8-15.2) 04/18/18 05:27 Hct 41.1 % (35.5-45.6) 04/18/18 05:27 MCV 84 fl (84-94) 04/18/18 05:27 MCH 28 pg (28-32) 04/18/18 05:27 MCHC 33 % (32-34) 04/18/18 05:27 RDW 14.0 % (13.2-15.2) 04/18/18 05:27 Plt Count 288 K/mm3 (140-440) 04/18/18 05:27 Add Manual Diff Complete 04/15/18 04:55 Total Counted 100 04/15/18 04:55 Seg Neuts % (Manual) 86.0 % (40.0-70.0) H 04/15/18 04:55 Band Neutrophils % 2.0 % 04/15/18 04:55 Lymphocytes % (Manual) 3.0 % (13.4-35.0) L 04/15/18 04:55 Reactive Lymphs % (Man) 0 % 04/15/18 04:55 Monocytes % (Manual) 9.0 % (0.0-7.3) H 04/15/18 04:55 Eosinophils % (Manual) 0 % (0.0-4.3) 04/15/18 04:55 Basophils % (Manual) 0 % (0.0-1.8) 04/15/18 04:55 Metamyelocytes % 0 % 04/15/18 04:55 Myelocytes % 0 % 04/15/18 04:55 Promyelocytes % 0 % 04/15/18 04:55 Blast Cells % 0 % 04/15/18 04:55 Nucleated RBC % Not Reportable 04/15/18 04:55 Seg Neutrophils # Man 24.3 K/mm3 (1.8-7.7) H 04/15/18 04:55 Band Neutrophils # 0.6 K/mm3 04/15/18 04:55 Lymphocytes # (Manual) 0.8 K/mm3 (1.2-5.4) L 04/15/18 04:55 Abs React Lymphs (Man) 0.0 K/mm3 04/15/18 04:55 Monocytes # (Manual) 2.5 K/mm3 (0.0-0.8) H 04/15/18 04:55 Eosinophils # (Manual) 0.0 K/mm3 (0.0-0.4) 04/15/18 04:55 Basophils # (Manual) 0.0 K/mm3 (0.0-0.1) 04/15/18 04:55 Metamyelocytes # 0.0 K/mm3 04/15/18 04:55 Myelocytes # 0.0 K/mm3 04/15/18 04:55 Promyelocytes # 0.0 K/mm3 04/15/18 04:55 Blast Cells # 0.0 K/mm3 04/15/18 04:55 WBC Morphology Not Reportable 04/15/18 04:55 Hypersegmented Neuts Not Reportable 04/15/18 04:55 Hyposegmented Neuts Not Reportable 04/15/18 04:55 Hypogranular Neuts Not Reportable 04/15/18 04:55 Smudge Cells Not Reportable 04/15/18 04:55 Toxic Granulation Not Reportable 04/15/18 04:55 Toxic Vacuolation Not Reportable 04/15/18 04:55 Dohle Bodies Not Reportable 04/15/18 04:55 Pelger-Huet Anomaly Not Reportable 04/15/18 04:55 Vinicio Rods Not Reportable 04/15/18 04:55 Platelet Estimate Consistent w auto 04/15/18 04:55 Clumped Platelets Not Reportable 04/15/18 04:55 Plt Clumps, EDTA Not Reportable 04/15/18 04:55 Large Platelets Not Reportable 04/15/18 04:55 Giant Platelets Not Reportable 04/15/18 04:55 Platelet Satelliting Not Reportable 04/15/18 04:55 Plt Morphology Comment Not Reportable 04/15/18 04:55 RBC Morphology Normal 04/15/18 04:55 Dimorphic RBCs Not Reportable 04/15/18 04:55 Polychromasia Not Reportable 04/15/18 04:55 Hypochromasia Not Reportable 04/15/18 04:55 Poikilocytosis Not Reportable 04/15/18 04:55 Anisocytosis Not Reportable 04/15/18 04:55 Microcytosis Not Reportable 04/15/18 04:55 Macrocytosis Not Reportable 04/15/18 04:55 Spherocytes Not Reportable 04/15/18 04:55 Pappenheimer Bodies Not Reportable 04/15/18 04:55 Sickle Cells Not Reportable 04/15/18 04:55 Target Cells Not Reportable 04/15/18 04:55 Tear Drop Cells Not Reportable 04/15/18 04:55 Ovalocytes Not Reportable 04/15/18 04:55 Helmet Cells Not Reportable 04/15/18 04:55 [place] Bodies Not Reportable 04/15/18 04:55 [place] Rings Not Reportable 04/15/18 04:55 [place] Cells Not Reportable 04/15/18 04:55 Bite Cells Not Reportable 04/15/18 04:55 Crenated Cell Not Reportable 04/15/18 04:55 Elliptocytes Not Reportable 04/15/18 04:55 Acanthocytes (Spur) Not Reportable 04/15/18 04:55 Rouleaux Not Reportable 04/15/18 04:55 Hemoglobin C Crystals Not Reportable 04/15/18 04:55 Schistocytes Not Reportable 04/15/18 04:55 Malaria parasites Not Reportable 04/15/18 04:55 Janes Bodies Not Reportable 04/15/18 04:55 Hem Pathologist Commnt No 04/15/18 04:55 POC ABG pH 7.400 (7.35-7.45) 04/14/18 14:45 POC ABG pCO2 39.6 (35-45) 04/14/18 14:45 POC ABG pO2 136 (80-105) H 04/14/18 14:45 POC ABG HCO3 24.6 04/14/18 14:45 POC ABG Total CO2 26 04/14/18 14:45 POC ABG O2 Sat 99 04/14/18 14:45 POC ABG Base Excess 0 04/14/18 14:45 VBG pH 7.412 (7.320-7.420) 04/14/18 12:53 FiO2 35 % 04/14/18 14:45 Sodium 142 mmol/L (137-145) 04/18/18 05:27 Potassium 4.1 mmol/L (3.6-5.0) 04/18/18 05:27 Chloride 103.7 mmol/L (98-107) 04/18/18 05:27 Carbon Dioxide 25 mmol/L (22-30) 04/18/18 05:27 Anion Gap 17 mmol/L 04/18/18 05:27 BUN 26 mg/dL (9-20) H 04/18/18 05:27 Creatinine 3.3 mg/dL (0.8-1.5) H 04/18/18 05:27 Estimated GFR 25 ml/min 04/18/18 05:27 BUN/Creatinine Ratio 8 % 04/18/18 05:27 Glucose 143 mg/dL (75-100) H 04/18/18 05:27 Lactic Acid 1.50 mmol/L (0.7-2.0) 04/14/18 23:05 Calcium 8.6 mg/dL (8.4-10.2) 04/18/18 05:27 Total Bilirubin 0.40 mg/dL (0.1-1.2) 04/14/18 12:53 AST 19 units/L (5-40) 04/14/18 12:53 ALT 21 units/L (7-56) 04/14/18 12:53 Alkaline Phosphatase 123 units/L (35-129) 04/14/18 12:53 Troponin T < 0.010 ng/mL (0.00-0.029) 04/14/18 12:53 NT-Pro-B Natriuret Pep 26.47 pg/mL (0-450) 04/14/18 14:17 Total Protein 8.6 g/dL (6.3-8.2) H 04/14/18 12:53 Albumin 3.9 g/dL (3.9-5) 04/14/18 12:53 Albumin/Globulin Ratio 0.8 % 04/14/18 12:53 Urine Color Yellow (Yellow) 04/17/18 04:40 Urine Turbidity Turbid (Clear) 04/17/18 04:40 Urine pH 5.0 (5.0-7.0) 04/17/18 04:40 Ur Specific [place] 1.020 (1.003-1.030) 04/17/18 04:40 Urine Protein 100 mg/dl mg/dL (Negative) 04/17/18 04:40 Urine Glucose (UA) Neg mg/dL (Negative) 04/17/18 04:40 Urine Ketones Neg mg/dL (Negative) 04/17/18 04:40 Urine Blood Lg (Negative) 04/17/18 04:40 Urine Nitrite Neg (Negative) 04/17/18 04:40 Urine Bilirubin Neg (Negative) 04/17/18 04:40 Urine Urobilinogen < 2.0 mg/dL (<2.0) 04/17/18 04:40 Ur Leukocyte Esterase Mod (Negative) 04/17/18 04:40 Urine WBC (Auto) 150.0 /HPF (0.0-6.0) H 04/17/18 04:40 Urine RBC (Auto) > 182.0 /HPF (0.0-6.0) 04/17/18 04:40 U Epithel Cells (Auto) 3.0 /HPF (0-13.0) 04/17/18 04:40 Urine Bacteria (Auto) 3+ /HPF (Negative) 04/17/18 04:40 Amorphous Crystals 3+ 04/17/18 04:40 Urine Mucus 2+ /HPF 04/17/18 04:40 Urine Yeast (Budding) Few /HPF 04/14/18 15:08 Vancomycin Trough 27.7 ug/mL (5.0-20.0) H 04/16/18 20:48 Random Vancomycin 16.4 ug/mL (0-40.0) 04/19/18 05:06 Influenza A (Rapid) Negative (Negative) 04/14/18 Unknown Influenza B (Rapid) Negative (Negative) 04/14/18 Unknown Group A Strep Rapid Negative (Negative) 04/14/18 Unknown Nutrition/Malnutrition Assess - Dietary Evaluation Nutrition/Malnutrition Findings: Nutrition Notes Start: 04/15/18 10:25 Freq: Status: Active Protocol: Document 04/17/18 16:31 [facility] (Rec: 04/17/18 16:35 [email or web address] Nutrition Notes Initial or Follow up Reassessment Current Diagnosis Sepsis,Respiratory Failure Other Pertinent Diagnosis Seizure D/O, Cerebral Palsy Current Diet TF - Osmolite 1.5 at 50ml/hr Labs/Tests Na 138 BUN 24 Cr 2.3 Pertinent Medications Reviewed Height 5 ft 3 in Weight 74.8 kg [place] Body Weight (kg) 56.36 BMI 29.2 Subjective/Other Information Pt tolerating TF at goal rate, per RN. Percent of energy/protein needs met: 98% energy 100% pro Burn Absent Trauma Absent #1 Nutrition Diagnosis Inadequate oral intake Diagnosis Progress(for reassessment Continues documentation) Is patient on ventilator? No Is Patient Ambulatory and/or Out of Bed No REE-([facility]-confined to bed) 1837.176 Calculation Used for Recommendations [facility] Additional Notes Pro needs 0.8-1g/k-75g/ day Fluid needs per MD Nutrition Intervention Nutrition Support: Osmolite 1.5 at 50ml/hr with 150ml water flush q4h. Kcal 1,800 Protein (gm) 75 Fluid (mL) 914 Goal #1 TF tolerance Goal #2 TF to meet at least 80% energy and pro needs Follow-Up By: 04/21/18 Additional Comments F/U: renal function - Attestation Statement I have reviewed and agreed w/ Malnutrition eval & tx plan: Yes
[2018-04-19] MEDS: LOPRESSOR PO SCH (09:55)
[2018-04-19] MEDS: ROCEPHIN/NS 2 GM/100 ML 2 GM/100 ML BAG IV SCH (09:55)
[2018-04-19] MEDS: SODIUM CHLORIDE FLUSH SYRINGE 10 ML IV SCH ×2 (09:56→21:34)
[2018-04-19 10:25] LABS: Basophils # (Auto) 0.1 K/mm3 (0.0-0.1); Basophils % (Auto) 0.6 % (0.0-1.8); Eosinophils # (Auto) 0.1 K/mm3 (0.0-0.4); Eosinophils % (Auto) 0.8 % (0.0-4.3); Hemoglobin 11.5 gm/dl (11.8-15.2); Lymphocytes # (Auto) 1.3 K/mm3 (1.2-5.4); Lymphocytes % (Auto) 7.4 % (13.4-35.0); Mean Corpuscular HGB Conc 34 % (32-34); Mean Corpuscular Volume 84 fl (84-94); Monocytes # (Auto) 1.4 K/mm3 (0.0-0.8); Monocytes % (Auto) 7.8 % (0.0-7.3); Platelet Count 239 K/mm3 (140-440); Red Blood Count 4.04 M/mm3 (3.65-5.03); Red Cell Distribution Width 14.4 % (13.2-15.2)
[2018-04-19 10:45] LABS: Calcium 7.9 mg/dL (8.4-10.2)
[2018-04-19] MEDS: TYLENOL FEEDTUBE PRN (10:50)
--- NOTE | 2018-04-19 11:02 | Progress Note ---
Assessment and Plan Cultures: 04/14/18 Blood: no growth to date 04/14/18 Urine; no growth to date 03/17/18 Group A Strep Positive A/P: 43-year-old male with a past medical history of of HTN, Seizure disorder, CP, admitted with: 1, Sepsis on Admission: Persistent on and off fever, evidenced by fever, tachycardia, increased lactic acid, leukocytosis. etiology unclear,, likely related to acute respiratory failure vs aspiration. Hx of +NGT with chest congestion and cough. U/A negative. Urine and blood cultures show no growth to date. Influenza negative.. Group A strep negative, culture pending.. Chest xray shows vascular congestion, but no consolidations. Currently being treated with ceftriaxone and vancomycin. -Repeat CXR 04/16/18: DDX includes mild noncardiogenic pulmonary congestion, bronchitis, and developing bronchopneumonia in the appropriate clinical setting. -TTE no valvular vegetation 2. Acute Hypoxemic Respiratory Failure etiology volume overload vs aspiration. Chest Xray shows Mild cardiomegaly and pulmonary venous congestion.,Currently on 02/4L NC. 3. Mental Retardation secondary to CP: 4. ZAIRE: creatinine trending up. Vancomycin trough 27.7. monitor for supratherapuetic vancomycin levels, target trough 10-20 ug/ml. Antibiotics renally dosed. Plan: -f/u urine culture -continue ceftriaxon at 2gms IV every 24 hours, D6 -Continue Flagyl 500mg IV every 8 hours, D3 -f/u repeat blood cultures -Flu PCR ordered, not collected -MRSA PCR ordered, not collected Adina Desai NP [facility] M: [id number] O:[phone] Subjective Date of service: 04/19/18 Interval history: patient seen and examined. Alert, no acute distress observed. Low grad fevers continuing. Objective - Exam Narrative Exam: Constitutional: Awake, alert. CP No acute distress Head, Ears, Nose: Normocephalic, atraumatic. External ears, nose normal Eyes: Conjunctivae/corneas clear. No icterus. No ptosis. Neck: Supple, no meningeal signs Oral: dentition poor. no thrush . + macroglossia Cardiovascular: S1, S2 normal. Respiratory: scattered rhonchi, 02/2L nc GI: Soft, non-tender; bowel sounds normal. No peritoneal signs Musculoskeletal: No pedal edema, no cyanosis., + hand contractures Skin: No rash or abscess. Hem/Lymphatic: No palpable cervical or supraclavicular nodes. No lymphangitis Psych: CP Neurological: CP, - Constitutional Vitals: Vital Signs Temp Pulse Resp BP Pulse Ox 100.0 F H 106 H 18 110/64 91 04/19/18 08:00 04/19/18 09:55 04/19/18 09:00 04/19/18 09:55 04/19/18 09:00 Temperature -Last 24 Hours Temperature 100.0 F Temperature 98.2 F Temperature 100.5 F Temperature 100.5 F Temperature 99.9 F Temperature 100.8 F Temperature 99.7 F Temperature 100.7 F Temperature 98.6 F - Labs CBC & Chem 7: 04/19/18 10:08 04/19/18 10:08 Labs: Abnormal lab results 04/19/18 04/19/18 Range/Units 10:08 10:08 WBC 17.3 H (4.5-11.0) K/mm3 Hgb 11.5 L (11.8-15.2) gm/dl Hct 34.0 L D (35.5-45.6) % Lymph % (Auto) 7.4 L (13.4-35.0) % [place] % (Auto) 7.8 H (0.0-7.3) % [place] # 1.4 H (0.0-0.8) K/mm3 Seg Neutrophils % 83.4 H (40.0-70.0) % Seg Neutrophils # 14.5 H (1.8-7.7) K/mm3 Chloride 110.8 H (98-107) mmol/L BUN 30 H (9-20) mg/dL Creatinine 3.5 H (0.8-1.5) mg/dL Glucose 152 H (75-100) mg/dL Calcium 7.9 L (8.4-10.2) mg/dL
[2018-04-19] MEDS: NACL 0.9% 1000 ML 1,000 ML IV SCH (15:19)
--- NOTE | 2018-04-19 17:27 | Cat Scan Report ---
PROCEDURE: CT CHEST WO CON TECHNIQUE: Axial helical imaging of the chest with sagittal and coronal reformatted images obtained. HISTORY: pneumonia COMPARISONS: Chest x-ray dated April 16, 2018 FINDINGS: Visualization of detail is somewhat limited by motion artifact and artifact created by retained hardw are in the spine. There are areas of pulmonary consolidation in the upper lobes bilaterally without volume loss suggest nahum of pulmonary infiltrates. There are areas of pulmonary consolidation in the right lower lobe also concerning for pulmonary infi ltrate. There is a possible small right pleural fluid collection versus pleural thickening. There is no evidence of pneumothorax. The trachea and bronchi are patent. The heart appears to be enlarged. The thoracic aorta is normal caliber. There is no definite evidence of intrathoracic adenopathy. The visualized portions of the upper abdomen is notable for multiple gallstones within the gallbladde r. The bony structures are notable for scoliosis with hardware in the spine and degenerative change of t he left glenohumeral joint with evidence of loose bodies within the joint. IMPRESSION: 1. Findings suggestive of pulmonary infiltrates in the upper lobes bilaterally and right lower lobe. 2. Right pleural thickening versus small right pleural fluid collection. 3. Cardiomegaly. 4. Gallstones within the gallbladder. 5. Scoliosis with retained hardware in the spine and degenerative change left glenohumeral joint. This document is electronically signed by Chelsea Donald MD., April 19 2018 05:23:04 PM ET
--- NOTE | 2018-04-19 17:28 | Consultation ---
History of Present Illness - Reason for Consult Consult date: 04/19/18 acute renal failure Requesting physician: SARAH HARTMAN - History of Present Illness 43-year-old male with a history of hypertension, seizure disorder, cerebral palsy, profound mental retardation admitted on account of fever and shortness of breath. Patient was found to have excessive oral secretions. He was admitted with respiratory failure secondary to sepsis probably pneumonia. Was sartwd start him empirically on antibiotics and cultures were obtained. Cultures remain negative so far. Patient is on vancomycin, ceftriaxone and Flagyl. BUN/creatinine with low normal on presentation on 4/0.4 mg/dL with a worsened on April 17 224/2.3 mg/dL on the -26/3.3 mg/dL and today 30/2.5 mg/dL Sodium was low at 122 mmol per liter on presentation has improved to normal. Potassium was also low and has also improved with supplementation. Past History Past Medical History: hypertension, seizures, other (CP cerebral palsy, profound mental [place]adran) Past Surgical History: No surgical history, Other (reviewed, but continuous en doscopic gastrostomy tube placement of a surgery for scoliosis, surgeon on-call) Social history: single, lives with family (with mother, sister and niece). denies: smoking, alcohol abuse, prescription drug abuse, IV drug use Family history: diabetes (mother, hypertension), hypertension (father and mother and brothers and sisters) Medications and Allergies Allergies Allergy/AdvReac Type Severity Reaction Status Date / Time No Known Allergies Allergy Unverified 04/14/18 12:46 Home Medications Medication Instructions Recorded Confirmed Last Taken Type Benazepril HCl [Lotensin] 10 mg PO DAILY 04/14/18 04/14/18 Unknown History Lactulose [Constulose] 2.5 tsp PO BID 04/14/18 04/14/18 Unknown History Metoprolol Tartrate 100 mg PO DAILY 04/14/18 04/14/18 Unknown History PHENobarbital [Phenobarbital] 2.5 tsp PO BID 04/14/18 04/14/18 Unknown History Active Meds: Active Medications Acetaminophen (Tylenol) 650 mg FEEDTUBE Q4H PRN PRN Reason: Fever >101 Last Admin: 04/19/18 10:50 Dose: 650 mg Documented by: Lipase/Protease/Amylase (Konrad Chavez 10,500 Unit) 1 each FEEDTUBE PRN PRN PRN Reason: For Clogged Feeding Tube Metronidazole (Flagyl 500 Mg/100 Ml) 500 mg in 100 mls @ 100 mls/hr IV Q8HR [facility]; Protocol Last Admin: 04/19/18 15:19 Dose: 100 mls/hr Documented by: Ceftriaxone Sodium (Rocephin/Ns 2 Gm/100 Ml) 2 gm in 100 mls @ 200 mls/hr IV Q24HR [facility]; Protocol Last Admin: 04/19/18 09:55 Dose: 200 mls/hr Documented by: Sodium Chloride (Nacl 0.9% 1000 Ml) 1,000 mls @ 75 mls/hr IV DIRECT [facility] Last Admin: 04/19/18 15:19 Dose: 125 mls/hr Documented by: Lactulose (Cephulac) 2.5 gm PO BID PRN PRN Reason: Constipation Metoprolol Tartrate (Lopressor) 100 mg PO DAILY [facility] Last Admin: 04/19/18 09:55 Dose: 100 mg Documented by: Phenobarbital (Phenobarbital) 50 mg PO BID [facility] Last Admin: 04/19/18 10:50 Dose: 50 mg Documented by: Scopolamine (Transderm-Scop) 1 each TD Q3D [facility] Last Admin: 04/18/18 09:50 Dose: 1 each Documented by: Simple Syrup (Simple Syrup) 15 ml FEEDTUBE PRN PRN PRN Reason: Hypoglycemia Simple Syrup (Simple Syrup) 30 ml FEEDTUBE PRN PRN PRN Reason: Hypoglycemia Sodium Bicarbonate (Sodium Bicarbonate) 325 mg FEEDTUBE PRN PRN PRN Reason: For Clogged Feeding Tube Sodium Chloride (Sodium Chloride Flush Syringe 10 Ml) 10 ml IV BID [facility] Last Admin: 04/19/18 09:56 Dose: 10 ml Documented by: Sodium Chloride (Sodium Chloride Flush Syringe 10 Ml) 10 ml IV PRN PRN PRN Reason: LINE FLUSH Review of Systems ROS unobtainable: due to mental status Exam - Vital Signs Vital signs: Vital Signs Pulse Ox 92 04/14/18 12:30 - Physical Exam Narrative exam: Middle-aged -[place] male lying in bed in no acute distress HEENT: NCAT, pink oral mucous membrane Neck: Supple, no venous distention CVS: S1S2 RRR with no murmur, rub or gallop Chest: Bilateral low pitched rhonchi Abdomen: Protuberant, soft, nontender, no organomegaly, bowel sounds are present Extremities: No edema, contractures noted both upper and lower extremities Genitourinary deferred Skin warm and dry, Neuro: Eyes open, not following commands Results - Lab Results 04/19/18 10:08 04/19/18 10:08 Most recent lab results Calcium 7.9 mg/dL (8.4-10.2) L 04/19/18 10:08 Assessment and Plan - Patient Problems (1) Acute kidney failure Current Visit: Yes Status: Acute Plan to address problem: Acute kidney injury acute tubular necrosis versus acute tubulointerstitial nephritis. Patient had a high vancomycin trough. Blood pressure was a bit low but no overt episode of hypotension documented. No exposure to radiocontrast nor nonsteroidal anti-iinflammatory drugs. Quantify proteinuria. Get urinalysis. Get kidney ultrasound. Follow-up electrolytes and renal function. (2) Electrolyte abnormality Current Visit: Yes Status: Acute Plan to address problem: Hyponatremia and hypokalemia resolved. Noted but probably factitious as corrected calcium is normal. Check ionized calcium tomorrow (3) Cerebral palsy Current Visit: Yes Status: Acute Plan to address problem: Patient is bedbound. Continue management (4) Seizure disorder Current Visit: Yes Status: Acute Plan to address problem: Continue treatment (5) Sepsis Current Visit: Yes Status: Acute Qualifiers: Sepsis type: sepsis due to unspecified organism Qualified Code(s): A41.9 - Sepsis, unspecified organism Plan to address problem: Cultures negative so far. Continue empiric antibiotics per infectious diseases customer relations consultant (6) Leukocytosis Current Visit: Yes Status: Acute Qualifiers: Leukocytosis type: unspecified Qualified Code(s): D72.829 - Elevated white blood cell count, unspecified Plan to address problem: Follow-up appointment with cell counts. Follow-up cultures. Check for peripheral eosinophilia
--- NOTE | 2018-04-19 21:00 | XRay Report ---
PROCEDURE: XR CHEST 1V AP TECHNIQUE: Chest radiograph single view. HISTORY: dyspnea COMPARISONS: None . FINDINGS: Heart: Normal. Mediastinum/Vessels: Normal. Lungs/Pleural space: Mild vascular congestion. No effusion or pneumothorax. Bony thorax: There is hardware in the thoracic spine for spinal fixation.. Life support devices: None. IMPRESSION: Mild vascular congestion is noted. No consolidation, effusion or pneumothorax. This document is electronically signed by Elyssa Nina DO., April 19 2018 08:58:22 PM ET
--- NOTE | 2018-04-20 05:05 | Ultrasound Report ---
PROCEDURE: US RENAL BILAT TECHNIQUE: Real-time sonography in multiple planes of the kidneys, ureters and urinary bladder was p erformed with image documentation. HISTORY: Acute kidney injury COMPARISONS: None . FINDINGS: RIGHT kidney: There is a homogenous echogenic mass in the midpole of the right kidney measuring 2.9 x 2.6 x 2.7 cm. 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 Possibility of neoplasm or intrarenal hematoma not ex cluded. If indicated, CT suggested. There is no perinephric fluid or mass. There is no stone or hydro nephrosis.. Length: 11.9 cm. LEFT kidney: Normal echotexture. No focal renal mass, calculus, or hydronephrosis. Length: 9.2 cm. Bladder: Normal. No distention or wall thickening. IMPRESSION: There is a homogenous echogenic mass in the midpole of the right kidney measuring 2.9 x 2.6 x 2.7 cm. 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 Possibility of neoplasm or intrarenal hematoma not excluded. If ind icated, CT suggested. There is no perinephric fluid or mass. There are no kidney stones or hydronephrosis bilaterally. This document is electronically signed by Marlo Gavin MD., April 20 2018 05:03:23 AM ET
[2018-04-20 06:14] LABS: Basophils # (Auto) 0.1 K/mm3 (0.0-0.1); Basophils % (Auto) 0.6 % (0.0-1.8); Eosinophils # (Auto) 0.2 K/mm3 (0.0-0.4); Eosinophils % (Auto) 1.1 % (0.0-4.3); Hematocrit 34.2 % (35.5-45.6); Hemoglobin 11.2 gm/dl (11.8-15.2); Lymphocytes # (Auto) 1.4 K/mm3 (1.2-5.4); Lymphocytes % (Auto) 7.8 % (13.4-35.0); Mean Corpuscular HGB Conc 33 % (32-34); Mean Corpuscular Volume 86 fl (84-94); Monocytes # (Auto) 1.5 K/mm3 (0.0-0.8); Monocytes % (Auto) 8.8 % (0.0-7.3); Platelet Count 218 K/mm3 (140-440); Red Blood Count 3.99 M/mm3 (3.65-5.03); Red Cell Distribution Width 14.4 % (13.2-15.2)
[2018-04-20 06:35] LABS: Calcium 7.8 mg/dL (8.4-10.2)
[2018-04-20] MEDS: FLAGYL 500 MG/100 ML 500 MG/100 ML BAG IV SCH ×3 (06:56→23:04)
[2018-04-20] MEDS: NACL 0.9% 1000 ML 1,000 ML IV SCH (06:57)
[2018-04-20] MEDS: ROCEPHIN/NS 2 GM/100 ML 2 GM/100 ML BAG IV SCH (10:42)
[2018-04-20] MEDS: LOPRESSOR PO SCH (10:43)
[2018-04-20] MEDS: SODIUM CHLORIDE FLUSH SYRINGE 10 ML IV SCH ×2 (10:44→22:37)
--- NOTE | 2018-04-20 11:10 | Progress Note ---
Assessment and Plan - Patient Problems (1) Acute kidney failure Current Visit: Yes Status: Acute Plan to address problem: Acute kidney injury acute tubular necrosis versus acute tubulointerstitial nephritis. Patient had a high vancomycin trough. Blood pressure was a bit low but no overt episode of hypotension documented. No exposure to radiocontrast nor nonsteroidal anti-inflammatory drugs. Kidney function is not significantly changed from yesterday. Get urine studies requested -as per the nurse at the bedside to send urine sample. Follow-up electrolytes and renal function. (2) Electrolyte abnormality Current Visit: Yes Status: Acute Plan to address problem: Hyponatremia and hypokalemia resolved. Hypocalcemia noted but probably factitious as corrected calcium is normal. Check ionized calcium tomorrow (3) Cerebral palsy Current Visit: Yes Status: Acute Plan to address problem: Patient is bedbound. Continue management (4) Seizure disorder Current Visit: Yes Status: Acute Plan to address problem: Continue treatment (5) Sepsis Current Visit: Yes Status: Acute Qualifiers: Sepsis type: sepsis due to unspecified organism Qualified Code(s): A41.9 - Sepsis, unspecified organism Plan to address problem: Cultures negative so far. Continue empiric antibiotics per infectious diseases warehouse consultant (6) Leukocytosis Current Visit: Yes Status: Acute Qualifiers: Leukocytosis type: unspecified Qualified Code(s): D72.829 - Elevated white blood cell count, unspecified Plan to address problem: Leukocytosis is unchanged. Follow-up white blood cell counts. Follow-up cultures. Check for peripheral eosinophilia Subjective Date of service: 04/20/18 Principal diagnosis: acute kidney injury Interval history: Patient seen lying in bed. Mother is not at the bedside this morning. Urine studies requested yesterday not sent yet. Objective - Exam Narrative Exam: Middle-aged -Romanian male lying in bed in no acute distress HEENT: NCAT, pink oral mucous membrane Neck: Supple, no venous distention CVS: S1S2 RRR with no murmur, rub or gallop Chest: Bilateral low pitched rhonchi Abdomen: Protuberant, soft, nontender, no organomegaly, bowel sounds are present Extremities: No edema, contractures noted both upper and lower extremities Genitourinary deferred Skin warm and dry, Neuro: Eyes open, not following commands - Vital Signs Vital signs: Vital Signs - 12hr 04/20/18 04/20/18 04/20/18 00:00 01:00 02:00 Temperature 100.1 F H Pulse Rate 86 77 92 H Respiratory 27 H 15 23 Rate Blood Pressure 128/78 121/67 121/67 O2 Sat by Pulse 99 96 Oximetry 04/20/18 04/20/18 04/20/18 03:00 04:00 05:00 Temperature 99.2 F Pulse Rate 95 H 92 H 94 H Respiratory 25 H 26 H 22 Rate Blood Pressure 123/70 112/65 108/63 O2 Sat by Pulse 94 94 93 Oximetry 04/20/18 04/20/18 04/20/18 06:00 07:00 08:00 Temperature 99.8 F H Pulse Rate 95 H 106 H 101 H Respiratory 28 H 16 23 Rate Blood Pressure 109/64 124/71 128/79 O2 Sat by Pulse 93 94 97 Oximetry 04/20/18 10:43 Temperature Pulse Rate 94 H Respiratory Rate Blood Pressure 135/73 O2 Sat by Pulse Oximetry - Lab 04/20/18 05:28 04/20/18 05:28 Most recent lab results Calcium 7.8 mg/dL (8.4-10.2) L 04/20/18 05:28 Phosphorus 2.80 mg/dL (2.5-4.5) 04/20/18 05:28 Medications & Allergies - Medications Allergies/Adverse Reactions: Allergies No Known Allergies Allergy (Unverified 04/14/18 12:46) Home Medications: Home Medications Medication Instructions Recorded Confirmed Last Taken Type Benazepril HCl [Lotensin] 10 mg PO DAILY 04/14/18 04/14/18 Unknown History Lactulose [Constulose] 2.5 tsp PO BID 04/14/18 04/14/18 Unknown History Metoprolol Tartrate 100 mg PO DAILY 04/14/18 04/14/18 Unknown History PHENobarbital [Phenobarbital] 2.5 tsp PO BID 04/14/18 04/14/18 Unknown History Active Medications: Generic Name Dose Route Start Last Admin Trade Name Freq PRN Reason Stop Dose Admin Acetaminophen 650 mg 04/15/18 01:05 04/19/18 10:50 Tylenol FEEDTUBE 650 mg Q4H PRN Administration Fever >101 Lipase/Protease/Amylase 1 each 04/15/18 10:31 Pancreaze 10,500 Unit FEEDTUBE PRN PRN For Clogged Feeding Tube Metronidazole 500 mg in 100 mls @ 100 mls/hr 04/16/18 15:00 04/20/18 06:56 Flagyl 500 Mg/100 Ml IV 100 mls/hr Q8HR MARLEEN Administration Protocol Ceftriaxone Sodium 2 gm in 100 mls @ 200 mls/hr 04/18/18 10:00 04/20/18 10:42 Rocephin/Ns 2 Gm/100 Ml IV 200 mls/hr Q24HR MARLEEN Administration Protocol Sodium Chloride 1,000 mls @ 75 mls/hr 04/17/18 19:00 04/20/18 06:57 Nacl 0.9% 1000 Ml IV 125 mls/hr DIRECT MARLEEN Administration Lactulose 2.5 gm 04/16/18 08:47 Cephulac PO BID PRN Constipation Metoprolol Tartrate 100 mg 04/15/18 10:00 04/20/18 10:43 Lopressor PO 100 mg DAILY MARLEEN Administration Phenobarbital 50 mg 04/14/18 22:00 04/19/18 21:38 Phenobarbital PO 50 mg BID MARLEEN Administration Scopolamine 1 each 04/15/18 09:00 04/18/18 09:50 Transderm-Scop TD 1 each Q3D MARLEEN Administration Simple Syrup 15 ml 04/15/18 10:31 Simple Syrup FEEDTUBE PRN PRN Hypoglycemia Simple Syrup 30 ml 04/15/18 10:31 Simple Syrup FEEDTUBE PRN PRN Hypoglycemia Sodium Bicarbonate 325 mg 04/15/18 10:31 Sodium Bicarbonate FEEDTUBE PRN PRN For Clogged Feeding Tube Sodium Chloride 10 ml 04/14/18 22:00 04/20/18 10:44 Sodium Chloride Flush Syringe 10 Ml IV 10 ml BID MARLEEN Administration Sodium Chloride 10 ml 04/14/18 15:41 Sodium Chloride Flush Syringe 10 Ml IV PRN PRN LINE FLUSH
--- NOTE | 2018-04-20 11:21 | Progress Note ---
Assessment and Plan Cultures: 04/14/18 Blood: no growth to date 04/14/18 Urine; no growth to date 03/17/18 Group A Strep Positive 04/17/18: Blood: no growth to date A/P: 43-year-old male with a past medical history of of HTN, Seizure disorder, CP, admitted with: 1, Sepsis on Admission: Persistent on and off fever, evidenced by fever, tachycardia, increased lactic acid, leukocytosis. etiology unclear,, likely related to acute respiratory failure vs aspiration. Hx of NGT with chest congestion and cough. U/A negative. Urine and blood cultures show no growth to date. Influenza negative.. Group A strep negative, culture pending.. Chest xray shows vascular congestion, but no consolidations. Currently being treated with Cefepime and Flagyl. -Repeat CXR 04/16/18: DDX includes mild noncardiogenic pulmonary congestion, bronchitis, and developing bronchopneumonia in the appropriate clinical setting. -TTE no valvular vegetation -Influnza Rapid- negative 2. Acute Hypoxemic Respiratory Failure etiology volume overload vs aspiration. Chest Xray shows Mild cardiomegaly and pulmonary venous congestion.,Currently on 02/4L NC. 3. Mental Retardation secondary to CP: 4. ZAIRE: creatinine trending up. Vancomycin trough 27.7, Vancomycin random 16.4. Plan: -Discontinue Ceftriaxone -Start Cefepime 2gms every 24 hours -Continue Flagyl 500mg IV every 8 hours, D5 -f/u repeat blood cultures -CT of abdomen pelvis ordered for persistent fevers and leukocytosis -MRSA PCR ordered, not collected Adina Desai NP [facility] M: [id number] O:[phone] Subjective Date of service: 04/20/18 Principal diagnosis: acute kidney injury Interval history: patient seen and examined. Alert, no acute distress observed. no fevers. Objective - Exam Narrative Exam: Constitutional: Awake, alert. CP No acute distress Head, Ears, Nose: Normocephalic, atraumatic. External ears, nose normal Eyes: Conjunctivae/corneas clear. No icterus. No ptosis. Neck: Supple, no meningeal signs Oral: dentition poor. no thrush . + macroglossia Cardiovascular: S1, S2 normal. Respiratory: scattered rhonchi, 02/2L nc GI: Soft, non-tender; bowel sounds normal. No peritoneal signs Musculoskeletal: No pedal edema, no cyanosis., + hand contractures Skin: No rash or abscess. Hem/Lymphatic: No palpable cervical or supraclavicular nodes. No lymphangitis Psych: CP Neurological: CP, - Constitutional Vitals: Vital Signs Temp Pulse Resp BP Pulse Ox 99.8 F H 94 H 23 135/73 97 04/20/18 08:00 04/20/18 10:43 04/20/18 08:00 04/20/18 10:43 04/20/18 08:00 Temperature -Last 24 Hours Temperature 99.8 F Temperature 99.2 F Temperature 100.1 F Temperature 99.3 F Temperature 97.6 F Temperature 98.9 F Temperature 98.9 F - Labs CBC & Chem 7: 04/20/18 05:28 04/20/18 05:28 Labs: Abnormal lab results 04/20/18 04/20/18 Range/Units 05:28 05:28 WBC 17.2 H (4.5-11.0) K/mm3 Hgb 11.2 L (11.8-15.2) gm/dl Hct 34.2 L (35.5-45.6) % Lymph % (Auto) 7.8 L (13.4-35.0) % [place] % (Auto) 8.8 H (0.0-7.3) % [place] # 1.5 H (0.0-0.8) K/mm3 Seg Neutrophils % 81.7 H (40.0-70.0) % Seg Neutrophils # 14.1 H (1.8-7.7) K/mm3 Sodium 146 H (137-145) mmol/L Chloride 110.8 H (98-107) mmol/L BUN 33 H (9-20) mg/dL Creatinine 3.4 H (0.8-1.5) mg/dL Glucose 125 H (75-100) mg/dL Calcium 7.8 L (8.4-10.2) mg/dL
[2018-04-20] MEDS: TYLENOL FEEDTUBE PRN ×2 (12:14→23:05)
--- NOTE | 2018-04-20 16:20 | Progress Note ---
Assessment and Plan Assessment and plan: 43 YO Male with HTN, Seizure Disorder, Cerebal Palsy presents to ED for evaluation. Pt is lethargic and nonverbal at baseline and unable to provide history. Pt history taken from mother who is at bedside during exam and interview. per mother, the patient has experienced shortness of breath today and felt like he was having fever, and just "didnt look right". EMS notified, and upon arrival the patient was found to have respiratory distress, with excess oral secretions in his oral pharynx. Pt transported to [facility] for further care. Pt seen and evaluated in ED and found to have Sepsis, as well as Acute Respiratory Failure. Pt admitted to IM and initiated on sepsis protocol. Primary care physician is Dr. Scott. CXR: 04/16/17 : IMPRESSION: 1. Mild prominence of the bronchopulmonary markings; DDX includes mild noncardiogenic pulmonary congestion, bronchitis, and developing bronchopneumonia in the appropriate clinical setting. Clinical correlation is advised. 2. Bone Increased opacity in the right lung base with elevation of the right hemidiaphragm in keeping with basilar atelectasis and/or small pleural effusion; cannot rule out a pneumonic infiltrate in the appropriat e clinical setting. Recommend clinical correlation and appropriate followup evaluation as clinically warranted. * Although Clinically improving, his o2 requirements is down to nasal cannula without any further increase in wob, he is still with low grade fever. * Discontinue Lasix, and started on fluids with some improvement in renal function * Nephrology following, avoid all nephrotoxic meds, possible vanc toxicity, Creatninie peaked yesterday and is now trending down Atalectasis: on chest xray. Started on CHEST PHYSIOTHERAPY. Also teach mother how to perform this on discharge. (1) Sepsis Sepsis Protocol:Continue IMCU care, IVF resuscitation, monitor uop q shift, Blood cultures, URINE culture so far with no growth. Unknown source at this time but Possible aspiration pneumonia considering on admission patient noted for oropharyngeal congestion and gurgling prior to admission, hence, continue treatment for aspiration. ID consult. continue abx per them discontinue femoral central line and place midline- HAS NOT BEEN DONE DUE TO PAT IENT SEVERE CONTRACTURE. WILL DISCUSS WITH ID PATIENT STILL HAS INTERMITTENT FEVER. Throat culture- NEGATIVE Leukocytosis improving AJIT negative for vegiation (2) Respiratory failure-acute on chronic with hypoxia Supplemental oxygen, nebulizer therapy, NIPPV as NEEDED. Possible Aspiration related. Patients mom, states that the patient gets some oral fed intermittently, has infrequent nausea with vomiting. Scopolamine due to secretion management (3) Pulmonary vascular congestion -Echo noted- EF 55-60 (4) ZAIRE secondary to vasomotor nephropathy -Consult Food Cooking Machine Operator -Continue IV fluids (5) Metabolic Acidosis Bicarb iv x 1 (6) Hyponatremia syndrome Current Visit: Yes Status: Acute Plan to address problem: IVF resuscitation therapy, monitor uop q shift, repeat bmp, (7) Mental Retardation secondary To CP Continue current management (8) Hypokalemia Replace (9)Complete Immobility due to frailty patient is non mobile and bed bound due to chronic medical condition. (10)DVT prophylaxis Current Visit: Yes Status: Acute Plan to address problem: SCD to BLE while in bed. Discussed with mother and nursings staff. History Interval history: Patient seen and examined, remains on nasal cannula, Patient with low grade temp again today, breathing remains stable Hospitalist Physical - Physical exam Narrative exam: General appearance: Present: mild distress - EENT Eyes: Present: PERRL ENT: hearing intact, clear oral mucosa - Neck Neck: Present: supple, normal ROM - Respiratory Respiratory effort: normal Respiratory: bilateral: diminished, crackles - Cardiovascular Rhythm: other Regular with intermittent tachycardia Heart Sounds: Present: S1 & S2. Absent: rub, click - Extremities Extremities: pulses symmetrical, Trace Edema Bilateral upper ext. Peripheral Pulses: abnormal (capillary refill greater than 3.5 seconds) - Abdominal General gastrointestinal: Present: soft, non-tender, non-distended, normal bowel sounds Male genitourinary: Present: normal - Integumentary Integumentary: Present: clear, warm, dry - Musculoskeletal Musculoskeletal: generalized weakness, contracted - Psychiatric Psychiatric: no appropriate mood/affect, no intact judgment & insight, no memory intact - Neurologic Neurologic: CNII-XII intact, contracted - Constitutional Vitals: Temp Pulse Resp BP Pulse Ox 100.9 F H 94 H 23 135/73 96 04/20/18 11:45 04/20/18 10:43 04/20/18 08:00 04/20/18 10:43 04/20/18 11:42 General appearance: Present: mild distress Results - Labs CBC & Chem 7: 04/20/18 05:28 04/20/18 05:28 Labs: Laboratory Last Values WBC 17.2 K/mm3 (4.5-11.0) H 04/20/18 05:28 RBC 3.99 M/mm3 (3.65-5.03) 04/20/18 05:28 Hgb 11.2 gm/dl (11.8-15.2) L 04/20/18 05:28 Hct 34.2 % (35.5-45.6) L 04/20/18 05:28 MCV 86 fl (84-94) 04/20/18 05:28 MCH 28 pg (28-32) 04/20/18 05:28 MCHC 33 % (32-34) 04/20/18 05:28 RDW 14.4 % (13.2-15.2) 04/20/18 05:28 Plt Count 218 K/mm3 (140-440) 04/20/18 05:28 Lymph % (Auto) 7.8 % (13.4-35.0) L 04/20/18 05:28 [place] % (Auto) 8.8 % (0.0-7.3) H 04/20/18 05:28 Eos % (Auto) 1.1 % (0.0-4.3) 04/20/18 05:28 Baso % (Auto) 0.6 % (0.0-1.8) 04/20/18 05:28 Lymph # 1.4 K/mm3 (1.2-5.4) 04/20/18 05:28 [place] # 1.5 K/mm3 (0.0-0.8) H 04/20/18 05:28 Eos # 0.2 K/mm3 (0.0-0.4) 04/20/18 05:28 Baso # 0.1 K/mm3 (0.0-0.1) 04/20/18 05:28 Add Manual Diff Complete 04/15/18 04:55 Total Counted 100 04/15/18 04:55 Seg Neutrophils % 81.7 % (40.0-70.0) H 04/20/18 05:28 Seg Neuts % (Manual) 86.0 % (40.0-70.0) H 04/15/18 04:55 Band Neutrophils % 2.0 % 04/15/18 04:55 Lymphocytes % (Manual) 3.0 % (13.4-35.0) L 04/15/18 04:55 Reactive Lymphs % (Man) 0 % 04/15/18 04:55 Monocytes % (Manual) 9.0 % (0.0-7.3) H 04/15/18 04:55 Eosinophils % (Manual) 0 % (0.0-4.3) 04/15/18 04:55 Basophils % (Manual) 0 % (0.0-1.8) 04/15/18 04:55 Metamyelocytes % 0 % 04/15/18 04:55 Myelocytes % 0 % 04/15/18 04:55 Promyelocytes % 0 % 04/15/18 04:55 Blast Cells % 0 % 04/15/18 04:55 Nucleated RBC % Not Reportable 04/15/18 04:55 Seg Neutrophils # 14.1 K/mm3 (1.8-7.7) H 04/20/18 05:28 Seg Neutrophils # Man 24.3 K/mm3 (1.8-7.7) H 04/15/18 04:55 Band Neutrophils # 0.6 K/mm3 04/15/18 04:55 Lymphocytes # (Manual) 0.8 K/mm3 (1.2-5.4) L 04/15/18 04:55 Abs React Lymphs (Man) 0.0 K/mm3 04/15/18 04:55 Monocytes # (Manual) 2.5 K/mm3 (0.0-0.8) H 04/15/18 04:55 Eosinophils # (Manual) 0.0 K/mm3 (0.0-0.4) 04/15/18 04:55 Basophils # (Manual) 0.0 K/mm3 (0.0-0.1) 04/15/18 04:55 Metamyelocytes # 0.0 K/mm3 04/15/18 04:55 Myelocytes # 0.0 K/mm3 04/15/18 04:55 Promyelocytes # 0.0 K/mm3 04/15/18 04:55 Blast Cells # 0.0 K/mm3 04/15/18 04:55 WBC Morphology Not Reportable 04/15/18 04:55 Hypersegmented Neuts Not Reportable 04/15/18 04:55 Hyposegmented Neuts Not Reportable 04/15/18 04:55 Hypogranular Neuts Not Reportable 04/15/18 04:55 Smudge Cells Not Reportable 04/15/18 04:55 Toxic Granulation Not Reportable 04/15/18 04:55 Toxic Vacuolation Not Reportable 04/15/18 04:55 Dohle Bodies Not Reportable 04/15/18 04:55 Pelger-Huet Anomaly Not Reportable 04/15/18 04:55 Vinicio Rods Not Reportable 04/15/18 04:55 Platelet Estimate Consistent w auto 04/15/18 04:55 Clumped Platelets Not Reportable 04/15/18 04:55 Plt Clumps, EDTA Not Reportable 04/15/18 04:55 Large Platelets Not Reportable 04/15/18 04:55 Giant Platelets Not Reportable 04/15/18 04:55 Platelet Satelliting Not Reportable 04/15/18 04:55 Plt Morphology Comment Not Reportable 04/15/18 04:55 RBC Morphology Normal 04/15/18 04:55 Dimorphic RBCs Not Reportable 04/15/18 04:55 Polychromasia Not Reportable 04/15/18 04:55 Hypochromasia Not Reportable 04/15/18 04:55 Poikilocytosis Not Reportable 04/15/18 04:55 Anisocytosis Not Reportable 04/15/18 04:55 Microcytosis Not Reportable 04/15/18 04:55 Macrocytosis Not Reportable 04/15/18 04:55 Spherocytes Not Reportable 04/15/18 04:55 Pappenheimer Bodies Not Reportable 04/15/18 04:55 Sickle Cells Not Reportable 04/15/18 04:55 Target Cells Not Reportable 04/15/18 04:55 Tear Drop Cells Not Reportable 04/15/18 04:55 Ovalocytes Not Reportable 04/15/18 04:55 Helmet Cells Not Reportable 04/15/18 04:55 Reddy-Funk Bodies Not Reportable 04/15/18 04:55 [place] Rings Not Reportable 04/15/18 04:55 [place] Cells Not Reportable 04/15/18 04:55 Bite Cells Not Reportable 04/15/18 04:55 Crenated Cell Not Reportable 04/15/18 04:55 Elliptocytes Not Reportable 04/15/18 04:55 Acanthocytes (Spur) Not Reportable 04/15/18 04:55 Rouleaux Not Reportable 04/15/18 04:55 Hemoglobin C Crystals Not Reportable 04/15/18 04:55 Schistocytes Not Reportable 04/15/18 04:55 Malaria parasites Not Reportable 04/15/18 04:55 Janes Bodies Not Reportable 04/15/18 04:55 Hem Pathologist Commnt No 04/15/18 04:55 POC ABG pH 7.400 (7.35-7.45) 04/14/18 14:45 POC ABG pCO2 39.6 (35-45) 04/14/18 14:45 POC ABG pO2 136 (80-105) H 04/14/18 14:45 POC ABG HCO3 24.6 04/14/18 14:45 POC ABG Total CO2 26 04/14/18 14:45 POC ABG O2 Sat 99 04/14/18 14:45 POC ABG Base Excess 0 04/14/18 14:45 VBG pH 7.412 (7.320-7.420) 04/14/18 12:53 FiO2 35 % 04/14/18 14:45 Sodium 146 mmol/L (137-145) H 04/20/18 05:28 Potassium 4.4 mmol/L (3.6-5.0) 04/20/18 05:28 Chloride 110.8 mmol/L (98-107) H 04/20/18 05:28 Carbon Dioxide 25 mmol/L (22-30) 04/20/18 05:28 Anion Gap 15 mmol/L 04/20/18 05:28 BUN 33 mg/dL (9-20) H 04/20/18 05:28 Creatinine 3.4 mg/dL (0.8-1.5) H 04/20/18 05:28 Estimated GFR 24 ml/min 04/20/18 05:28 BUN/Creatinine Ratio 10 % 04/20/18 05:28 Glucose 125 mg/dL (75-100) H 04/20/18 05:28 Lactic Acid 1.50 mmol/L (0.7-2.0) 04/14/18 23:05 Calcium 7.8 mg/dL (8.4-10.2) L 04/20/18 05:28 Phosphorus 2.80 mg/dL (2.5-4.5) 04/20/18 05:28 Total Bilirubin 0.40 mg/dL (0.1-1.2) 04/14/18 12:53 AST 19 units/L (5-40) 04/14/18 12:53 ALT 21 units/L (7-56) 04/14/18 12:53 Alkaline Phosphatase 123 units/L (35-129) 04/14/18 12:53 Troponin T < 0.010 ng/mL (0.00-0.029) 04/14/18 12:53 NT-Pro-B Natriuret Pep 26.47 pg/mL (0-450) 04/14/18 14:17 Total Protein 8.6 g/dL (6.3-8.2) H 04/14/18 12:53 Albumin 3.9 g/dL (3.9-5) 04/14/18 12:53 Albumin/Globulin Ratio 0.8 % 04/14/18 12:53 Urine Color Yellow (Yellow) 04/17/18 04:40 Urine Turbidity Turbid (Clear) 04/17/18 04:40 Urine pH 5.0 (5.0-7.0) 04/17/18 04:40 Ur Specific [place] 1.020 (1.003-1.030) 04/17/18 04:40 Urine Protein 100 mg/dl mg/dL (Negative) 04/17/18 04:40 Urine Glucose (UA) Neg mg/dL (Negative) 04/17/18 04:40 Urine Ketones Neg mg/dL (Negative) 04/17/18 04:40 Urine Blood Lg (Negative) 04/17/18 04:40 Urine Nitrite Neg (Negative) 04/17/18 04:40 Urine Bilirubin Neg (Negative) 04/17/18 04:40 Urine Urobilinogen < 2.0 mg/dL (<2.0) 04/17/18 04:40 Ur Leukocyte Esterase Mod (Negative) 04/17/18 04:40 Urine WBC (Auto) 150.0 /HPF (0.0-6.0) H 04/17/18 04:40 Urine RBC (Auto) > 182.0 /HPF (0.0-6.0) 04/17/18 04:40 U Epithel Cells (Auto) 3.0 /HPF (0-13.0) 04/17/18 04:40 Urine Bacteria (Auto) 3+ /HPF (Negative) 04/17/18 04:40 Amorphous Crystals 3+ 04/17/18 04:40 Urine Mucus 2+ /HPF 04/17/18 04:40 Urine Yeast (Budding) Few /HPF 04/14/18 15:08 Vancomycin Trough 27.7 ug/mL (5.0-20.0) H 04/16/18 20:48 Random Vancomycin 16.4 ug/mL (0-40.0) 04/19/18 05:06 Influenza A (Rapid) Negative (Negative) 04/14/18 Unknown Influenza B (Rapid) Negative (Negative) 04/14/18 Unknown Group A Strep Rapid Negative (Negative) 04/14/18 Unknown Nutrition/Malnutrition Assess - Dietary Evaluation Nutrition/Malnutrition Findings: Nutrition Notes Start: 04/15/18 10:25 Freq: Status: Active Protocol: Document 04/17/18 16:31 GWENDOLYN (Rec: 04/17/18 16:35 NETYE DIAZ- [email or web address]) Nutrition Notes Initial or Follow up Reassessment Current Diagnosis Sepsis,Respiratory Failure Other Pertinent Diagnosis Seizure D/O, Cerebral Palsy Current Diet TF - Osmolite 1.5 at 50ml/hr Labs/Tests Na 138 BUN 24 Cr 2.3 Pertinent Medications Reviewed Height 5 ft 3 in Weight 74.8 kg [place] Body Weight (kg) 56.36 BMI 29.2 Subjective/Other Information Pt tolerating TF at goal rate, per RN. Percent of energy/protein needs met: 98% energy 100% pro Burn Absent Trauma Absent #1 Nutrition Diagnosis Inadequate oral intake Diagnosis Progress(for reassessment Continues documentation) Is patient on ventilator? No Is Patient Ambulatory and/or Out of Bed No REE-([place]-St. Jeor-confined to bed) [phone] Calculation [facility]ations [facility] Additional Notes Pro needs 0.8-1g/k-75g/ day Fluid needs per MD Nutrition Intervention Nutrition Support: Osmolite 1.5 at 50ml/hr with 150ml water flush q4h. Kcal 1,800 Protein (gm) 75 Fluid (mL) 914 Goal #1 TF tolerance Goal #2 TF to meet at least 80% energy and pro needs Follow-Up By: 04/21/18 Additional Comments F/U: renal function
[2018-04-20 18:02] LABS: Creatinine,Urine 110.1 mg/dL (0.1-20.0)
[2018-04-20] MEDS: MAXIPIME/NS 2 GM/100 ML 2 GM/100 ML BAG IV SCH (22:38)
[2018-04-21 04:32] LABS: Hematocrit 33.8 % (35.5-45.6); Hemoglobin 11.2 gm/dl (11.8-15.2); Mean Corpuscular HGB Conc 33 % (32-34); Mean Corpuscular Volume 84 fl (84-94); Platelet Count 212 K/mm3 (140-440); Red Blood Count 4.01 M/mm3 (3.65-5.03); Red Cell Distribution Width 14.6 % (13.2-15.2)
[2018-04-21] MEDS: FLAGYL 500 MG/100 ML 500 MG/100 ML BAG IV SCH ×2 (05:29→19:22)
[2018-04-21 06:43] LABS: Calcium 8.1 mg/dL (8.4-10.2)
--- NOTE | 2018-04-21 08:56 | Progress Note ---
Assessment and Plan - Patient Problems (1) Acute kidney failure Current Visit: Yes Status: Acute Plan to address problem: Acute kidney injury acute tubular necrosis versus acute tubulointerstitial nephritis. Patient had a high vancomycin trough. Blood pressure was a bit low but no overt episode of hypotension documented. No exposure to radiocontrast nor nonsteroidal anti-inflammatory drugs. Kidney function is a bit better. Follow-up electrolytes and renal function. (2) Electrolyte abnormality Current Visit: Yes Status: Acute Plan to address problem: Hyponatremia and hypokalemia resolved. Hypocalcemia noted but probably factitious as corrected calcium is normal. Calcium improved today (3) Cerebral palsy Current Visit: Yes Status: Acute Plan to address problem: Patient is bedbound. Continue management (4) Seizure disorder Current Visit: Yes Status: Acute Plan to address problem: Continue treatment (5) Sepsis Current Visit: Yes Status: Acute Qualifiers: Sepsis type: sepsis due to unspecified organism Qualified Code(s): A41.9 - Sepsis, unspecified organism Plan to address problem: Cultures negative so far. Probably bilateral upper lobe and right lower lobe pneumonia. Continue empiric antibiotics per infectious diseases [employer] payroll consultant (6) Leukocytosis Current Visit: Yes Status: Acute Qualifiers: Leukocytosis type: unspecified Qualified Code(s): D72.829 - Elevated white blood cell count, unspecified Plan to address problem: Leukocytosis is unchanged. Follow-up white blood cell counts. Follow-up cultures. Noncontrast CT of the abdomen and pelvis ordered per Infectious disease Subjective Date of service: 04/21/18 Principal diagnosis: acute kidney injury Interval history: Patient seen lying in bed. Mother is not at the bedside this morning. Patient is nonverbal due to eyes are open. Not following commands Objective - Exam Narrative Exam: Middle-aged -Prydeinig male lying in bed in no acute distress HEENT: NCAT, pink oral mucous membrane Neck: Supple, no venous distention CVS: S1S2 RRR with no murmur, rub or gallop Chest: Coarse breath sounds with Bilateral low pitched rhonchi Abdomen: Protuberant, soft, nontender, no organomegaly, bowel sounds are present Extremities: No edema, contractures noted both upper and lower extremities Genitourinary deferred Skin warm and dry, Neuro: Eyes open, not following commands - Vital Signs Vital signs: Vital Signs - 12hr 04/20/18 04/20/1819 21:01 22:00 23:00 Temperature Pulse Rate 89 83 90 Pulse Rate [ From Monitor] Respiratory 19 31 H 28 H Rate Blood Pressure 153/91 137/92 151/95 O2 Sat by Pulse 96 96 97 Oximetry 04/20/18 04/21/18 04/21/18 23:36 00:00 00:01 Temperature 99 F Pulse Rate 86 87 90 Pulse Rate [ 91 H From Monitor] Respiratory 29 H 26 H 29 H Rate Blood Pressure 151/95 127/85 127/85 O2 Sat by Pulse 97 98 97 Oximetry 04/21/18 04/21/18 04/21/18 01:00 02:01 03:00 Temperature Pulse Rate 91 H 91 H 88 Pulse Rate [ From Monitor] Respiratory 26 H 35 H 33 H Rate Blood Pressure 130/76 123/75 133/80 O2 Sat by Pulse 94 94 95 Oximetry 04/21/18 04/21/18 04/21/18 04:00 05:00 06:00 Temperature 98.7 F Pulse Rate 102 H 98 H 94 H Pulse Rate [ 96 H From Monitor] Respiratory 10 L 13 23 Rate Blood Pressure 146/86 147/95 133/87 O2 Sat by Pulse 97 94 97 Oximetry - Lab 04/21/18 03:53 04/21/18 03:53 Most recent lab results Calcium 8.1 mg/dL (8.4-10.2) L 04/21/18 03:53 Phosphorus 2.80 mg/dL (2.5-4.5) 04/20/18 05:28 Urine Creatinine 110.1 mg/dL (0.1-20.0) H 04/19/18 16:00 Urine Sodium 74 mmol/L 04/19/18 16:00 Urine Total Protein 46 mg/dL (5-11.8) H 04/19/18 16:00 Medications & Allergies - Medications Allergies/Adverse Reactions: Allergies No Known Allergies Allergy (Unverified 04/14/18 12:46) Home Medications: Home Medications Medication Instructions Recorded Confirmed Last Taken Type Benazepril HCl [Lotensin] 10 mg PO DAILY 04/14/18 04/14/18 Unknown History Lactulose [Constulose] 2.5 tsp PO BID 04/14/18 04/14/18 Unknown History Metoprolol Tartrate 100 mg PO DAILY 04/14/18 04/14/18 Unknown History PHENobarbital [Phenobarbital] 2.5 tsp PO BID 04/14/18 04/14/18 Unknown History Active Medications: Generic Name Dose Route Start Last Admin Trade Name Iraida PRN Reason Stop Dose Admin Acetaminophen 650 mg 04/15/18 01:05 04/20/18 23:05 Tylenol FEEDTUBE 650 mg Q4H PRN Administration Fever >101 Lipase/Protease/Amylase 1 each 04/15/18 10:31 Pancreaze 10,500 Unit FEEDTUBE PRN PRN For Clogged Feeding Tube Metronidazole 500 mg in 100 mls @ 100 mls/hr 04/16/18 15:00 04/21/18 05:29 Flagyl 500 Mg/100 Ml IV 100 mls/hr Q8HR MARLEEN Administration Protocol Sodium Chloride 1,000 mls @ 75 mls/hr 04/17/18 19:00 04/20/18 06:57 Nacl 0.9% 1000 Ml IV 125 mls/hr DIRECT MARLEEN Administration Cefepime HCl 2 gm in 100 mls @ 200 mls/hr 04/20/18 13:00 04/20/18 22:38 Maxipime/Ns 2 Gm/100 Ml IV 200 mls/hr Q24HR MARLEEN Administration Protocol Lactulose 2.5 gm 04/16/18 08:47 Cephulac PO BID PRN Constipation Metoprolol Tartrate 100 mg 04/15/18 10:00 04/20/18 10:43 Lopressor PO 100 mg DAILY MARLEEN Administration Phenobarbital 50 mg 04/14/18 22:00 04/20/18 22:53 Phenobarbital PO 50 mg BID MARELEN Administration Scopolamine 1 each 04/15/18 09:00 04/18/18 09:50 Transderm-Scop TD 1 each Q3D MARLEEN Administration Simple Syrup 15 ml 04/15/18 10:31 Simple Syrup FEEDTUBE PRN PRN Hypoglycemia Simple Syrup 30 ml 04/15/18 10:31 Simple Syrup FEEDTUBE PRN PRN Hypoglycemia Sodium Bicarbonate 325 mg 04/15/18 10:31 Sodium Bicarbonate FEEDTUBE PRN PRN For Clogged Feeding Tube Sodium Chloride 10 ml 04/14/18 22:00 04/20/18 22:37 Sodium Chloride Flush Syringe 10 Ml IV 10 ml BID MARLEEN Administration Sodium Chloride 10 ml 04/14/18 15:41 Sodium Chloride Flush Syringe 10 Ml IV PRN PRN LINE FLUSH
--- NOTE | 2018-04-21 11:50 | Progress Note ---
Assessment and Plan Cultures: 04/14/18 Blood: no growth to date 04/14/18 Urine; no growth to date 03/17/18 Group A Strep Positive 04/17/18: Blood: no growth to date A/P: 43-year-old male with a past medical history of of HTN, Seizure disorder, CP, admitted with: 1, Sepsis on Admission: Persistent on and off fever, evidenced by fever, tachycardia, increased lactic acid, leukocytosis. etiology unclear,, likely related to acute respiratory failure vs aspiration. Hx of NGT with chest congestion and cough. U/A negative. Urine and blood cultures show no growth to date. Influenza negative.. Group A strep negative, culture positive. Chest xray shows vascular congestion, but no consolidations. Currently being treated with Cefepime and Flagyl. -Repeat CXR 04/16/18: DDX includes mild noncardiogenic pulmonary congestion, bronchitis, and developing bronchopneumonia in the appropriate clinical setting. -TTE no valvular vegetation -Influnza Rapid- negative 2. Acute Hypoxemic Respiratory Failure etiology volume overload vs aspiration. Chest Xray shows Mild cardiomegaly and pulmonary venous congestion.,Currently on 03/13L NC. 3. Mental Retardation secondary to CP: 4. ZAIRE: creatinine trending up. Vancomycin trough 27.7, Vancomycin random 16.4. Plan: -Continue Cefepime 2gms every 24 hours, D2 -Continue Flagyl 500mg IV every 8 hours, D6 -f/u repeat blood cultures - f/u CT of abdomen pelvis ordered for persistent fevers and leukocytosis -MRSA PCR ordered, not collected Dr. Allen will be consulting application engineer this weekend, , please call for questions. Adina Desai NP [facility] M: [phone] O:[phone] Subjective Date of service: 04/21/18 Principal diagnosis: acute kidney injury Interval history: patient seen and examined. Alert, no acute distress observed. no fevers. Objective - Exam Narrative Exam: Constitutional: Awake, alert. CP No acute distress Head, Ears, Nose: Normocephalic, atraumatic. External ears, nose normal Eyes: Conjunctivae/corneas clear. No icterus. No ptosis. Neck: Supple, no meningeal signs Oral: dentition poor. no thrush . + macroglossia Cardiovascular: S1, S2 normal. Respiratory: scattered rhonchi, 02/2L nc GI: Soft, non-tender; bowel sounds normal. No peritoneal signs Musculoskeletal: No pedal edema, no cyanosis., + hand contractures Skin: No rash or abscess. Hem/Lymphatic: No palpable cervical or supraclavicular nodes. No lymphangitis Psych: CP Neurological: CP, - Constitutional Vitals: Vital Signs Temp Pulse Resp BP Pulse Ox 99.9 F H 94 H 23 133/87 97 04/21/18 08:00 04/21/18 06:00 04/21/18 06:00 04/21/18 06:00 04/21/18 06:00 Temperature -Last 24 Hours Temperature 99.9 F Temperature 98.7 F Temperature 99 F Temperature 99.2 F Temperature 99.5 F - Labs CBC & Chem 7: 04/21/18 03:53 04/21/18 03:53 Labs: Abnormal lab results 04/19/18 04/21/18 04/21/18 Range/Units 16:00 03:53 03:53 WBC 17.8 H (4.5-11.0) K/mm3 Hgb 11.2 L (11.8-15.2) gm/dl Hct 33.8 L (35.5-45.6) % Chloride 110.8 H (98-107) mmol/L BUN 35 H (9-20) mg/dL Creatinine 3.2 H (0.8-1.5) mg/dL Glucose 134 H (75-100) mg/dL Calcium 8.1 L (8.4-10.2) mg/dL Urine Creatinine 110.1 H (0.1-20.0) mg/dL Urine Total Protein 46 H (5-11.8) mg/dL
--- NOTE | 2018-04-21 16:01 | Progress Note ---
Assessment and Plan / Sepsis admitted with Sepsis Protocol: Continue IMCU care, IVF resuscitation, monitor uop q shift, Blood cultures, URINE culture so far with no growth. Throat culture- NEGATIVE Leukocytosis improving AJIT negative for vegiation Unknown source at this time but Possible aspiration pneumonia considering on admission patient noted for oropharyngeal congestion and gurgling prior to admission, hence, continued treatment for aspiration. ID consulted. continue abx per them. Need to discontinue femoral central line and place midline- BUT HAS NOT BEEN DONE DUE TO PATIENT SEVERE CONTRACTURE. WILL DISCUSS WITH ID PATIENT STILL HAS INTERMITTENT FEVER. will also f/u CT abdomen/pelvis and RUQ US / Respiratory failure-acute on chronic with hypoxia cont Supplemental oxygen, nebulizer therapy, NIPPV as NEEDED. Possible Aspiration related. Patients mom, states that the patient gets some oral fed intermittently, has infrequent nausea with vomiting. Scopolamine due to secretion management / Pulmonary vascular congestion - could be from renal failure? -Echo noted- EF 55-60 / ZAIRE secondary to vasomotor nephropathy -Consulted [employer] Supervisor -Continue IV fluids, Cr improving / Metabolic Acidosis due to renal failure s/p Bicarb iv x 1 /Hyponatremia syndrome IVF resuscitation therapy, monitor uop q shift, repeat bmp, / Mental Retardation secondary To CP Continue supportive care / Hypokalemia Replace as needed /Complete Immobility due to frailty patient is non mobile and bed bound due to chronic medical condition. /DVT prophylaxis SCD to BLE while in bed. Discussed with nursings staff. Brief history: 43 YO Male with HTN, Seizure Disorder, Cerebal Palsy presents to ED for evaluation by EMS for shortness of breath and felt like he was having fever, and just "didnt look right".. Pt is lethargic and nonverbal at baseline and unable to provide history. Pt history taken from mother. EMS notified, and upon arrival the patient was found to have respiratory distress, with excess oral secretions in his oral pharynx. Pt transported to [facility] for further care. Pt seen and evaluated in ED and found to have Sepsis, as well as Acute Respiratory Failure. Pt admitted to IMCU and initiated on sepsis protocol. Primary care physician is Dr. Scott. CXR: 04/16/17 : 1. Mild prominence of the bronchopulmonary markings; DDX includes mild noncardiogenic pulmonary congestion, bronchitis, and developing bronchopneumonia in the appropriate clinical setting. Clinical correlation is advised. 2. Bone Increased opacity in the right lung base with elevation of the right hemidiaphragm in keeping with basilar atelectasis and/or small pleural effusion; cannot rule out a pneumonic infiltrate in the appropriate clinical setting. Recommend clinical correlation and appropriate followup evaluation as clinically warranted. * Although Clinically improving, his o2 requirements is down to nasal cannula without any further increase in wob, he is still with low grade fever. * Discontinue Lasix, and started on fluids with some improvement in renal function * Nephrology following, avoid all nephrotoxic meds, possible vanc toxicity, Creatninie is now trending down * ordered CT of abdomen pelvis and RUQ US for persistent fevers and leukocytosis Atalectasis: on chest xray. Started on CHEST PHYSIOTHERAPY. Also teach mother how to perform this on discharge. Hospitalist Physical - Physical exam Narrative exam: General appearance: Present: mild distress - EENT Eyes: Present: no congestion or icterus ENT: no ear discharge, clear oral mucosa - Neck Neck: Present: supple, normal ROM - Respiratory Respiratory effort: normal Respiratory: bilateral: diminished, crackles - Cardiovascular Rhythm: other Regular with intermittent tachycardia Heart Sounds: Present: S1 & S2. Absent: rub, click - Extremities Extremities: pulses symmetrical, Trace Edema Bilateral upper ext. - Abdominal General gastrointestinal: Present: soft, non-tender, non-distended, normal bowel sounds Male genitourinary: Present: normal - Integumentary Integumentary: Present: clear, warm, dry - Musculoskeletal Musculoskeletal: generalized weakness, contracted - Psychiatric Psychiatric: no appropriate mood/affect, no intact judgment & insight, no memory intact - Neurologic Neurologic: contracted, aphasic Subjective Date of service: 04/21/18 Principal diagnosis: acute kidney injury Interval history: Patient seen and examined, remains on nasal cannula, Patient with low grade temp again today, breathing remains stable, tolerating TF Objective - Constitutional Vitals: Vital Signs - 12hr 04/21/18 04/21/18 04/21/18 05:00 06:00 08:00 Temperature 99.9 F H Pulse Rate 98 H 94 H Respiratory 13 23 Rate Blood Pressure 147/95 133/87 O2 Sat by Pulse 94 97 Oximetry 04/21/18 12:00 Temperature 98.7 F Pulse Rate Respiratory Rate Blood Pressure O2 Sat by Pulse Oximetry - Labs CBC & Chem 7: 04/22/18 05:57 04/22/18 05:57 Labs: Abnormal lab results 04/19/18 04/21/18 04/21/18 Range/Units 16:00 03:53 03:53 WBC 17.8 H (4.5-11.0) K/mm3 Hgb 11.2 L (11.8-15.2) gm/dl Hct 33.8 L (35.5-45.6) % Chloride 110.8 H (98-107) mmol/L BUN 35 H (9-20) mg/dL Creatinine 3.2 H (0.8-1.5) mg/dL Glucose 134 H (75-100) mg/dL Calcium 8.1 L (8.4-10.2) mg/dL Urine Creatinine 110.1 H (0.1-20.0) mg/dL Urine Total Protein 46 H (5-11.8) mg/dL
--- NOTE | 2018-04-21 19:04 | Cat Scan Report ---
PROCEDURE: CT CHEST WO CON TECHNIQUE: Following administration of GI contrast axial helical imaging was performed through the a bdomen and pelvis with sagittal and coronal reformatted images obtained. HISTORY: Persistent leucocytosis and fever COMPARISONS: CT chest dated April 19, 2018 FINDINGS: Visualization of detail is somewhat limited by motion artifact and streak artifact created by retaine d hardware the spine.. The liver, spleen, pancreas and adrenal glands are unremarkable. The gallbladder is moderately distended and contains gallstones. There are punctate foci of decreased density in the right renal pelvis most consistent with small col lections of air within the renal pelvis. This is of unclear etiology but can be seen with infection. There is no evidence of hydronephrosis nor urinary tract calculi. The bowel is normal caliber. GI contrast is demonstrated to transit through the small bowel and colon to the rectum. The appendix is normal caliber. There appears to be a small amount of free fluid in the pelvis of unclear etiology. There is no evidence of pneumoperitoneum. A percutaneous gastrostomy tube is demonstrated with the tip in the stomach. The abdominal aorta is normal caliber. The urinary bladder is decompressed around a balloon catheter. There is mild stranding of the perives icular fat which can be seen with cystitis. The prostate gland and seminal vesicles are unremarkable. The bony structures are notable for dysplastic appearance of the hips bilaterally, degenerative perry e of the right SI joint with subchondral erosive change and scoliosis with retained hardware in the t horacic and lumbar spine. IMPRESSION: 1. Mild stranding of the perivesicular fat which can be seen with cystitis. The urinary bladder is de compressed around a balloon catheter. 2. Small collections of air in the right renal pelvis that are nonspecific in appearance but can be s een with infection. Minimal 3. Percutaneous gastrostomy tube with tip in the stomach. 4. Gallstones within the gallbladder. 5. Scoliosis with retained hardware in the thoracic and lumbar spine, dysplastic appearance of the hi p joints bilaterally and degenerative change of the right SI joint. This document is electronically signed by Chelsea Donald MD., April 21 2018 07:02:17 PM ET
[2018-04-21] MEDS: NACL 0.9% 1000 ML 1,000 ML IV SCH (19:17)
--- NOTE | 2018-04-21 19:17 | Cat Scan Report ---
PROCEDURE: CT ABDOMEN PELVIS WO CON TECHNIQUE: Axial helical imaging through the chest with sagittal and coronal reformatted images obta ined. HISTORY: Persistent leucocytosis and fever COMPARISONS: Dated April 19, 2018 FINDINGS: Visualization of fine detail is somewhat limited by motion artifact and streak artifact created by kincaid rdware in the spine. There is the appearance of areas of pulmonary consolidation in the upper lobes bilaterally and right lower lobe. Atelectasis versus infiltrates. This appears to be slightly decreased in degree in the in terval. Again noted is the small right pleural fluid collection versus pleural thickening. The heart appears to be enlarged. The thoracic aorta is normal caliber. There is no definite evidence of intrathoracic adenopathy. The bony structures are notable for scoliosis with retained hardware. IMPRESSION: 1. Visualization of detail is limited by motion artifact and streak artifact created by spine hardwar e. 2. Appearance of areas of pulmonary consolidation in the upper lobes bilaterally and right lower lobe . Atelectasis versus infiltrates. This appears to be slightly decreased compared with a previous ches t CT dated April 19, 2017. This document is electronically signed by Chelsea Donald MD., April 21 2018 07:15:19 PM ET
[2018-04-21] MEDS: TRANSDERM-SCOP TD SCH (19:22)
[2018-04-21] MEDS: LOPRESSOR PO SCH (19:23)
[2018-04-21] MEDS: MAXIPIME/NS 2 GM/100 ML 2 GM/100 ML BAG IV SCH (19:23)
[2018-04-21] MEDS: SODIUM CHLORIDE FLUSH SYRINGE 10 ML IV SCH (19:24)
--- NOTE | 2018-04-21 19:43 | Ultrasound Report ---
PROCEDURE: US ABDOMEN LIMITED TECHNIQUE: Real-time sonography was performed of the right upper quadrant with image documentation. HISTORY: Eval gall bladder for ?source of sepsis COMPARISONS: CT A/P 04/21/2018 . FINDINGS: Examination of the gallbladder demonstrates numerous small shadowing gallstones filling the gallbladd er. There is no evidence for distention, wall thickening, or pericholecystic fluid. No sonographic Mu rphy's sign is elicited. Common bile duct is mildly dilated in diameter measuring 6.8 mm. No definite calculus obstructing the distal common bile duct is visualized. The liver is normal and homogeneous in echogenicity without focal abnormality or intrahepatic biliary dilatation. The pancreas is not visualized due to bowel gas. The right kidney is normal in size without calculi or hydronephrosis. The right measures 11.7 cm in craniocaudal length. Aorta is normal in caliber measuring 2.1 cm in its proximal portion. IMPRESSION: 1. Gallbladder is filled with gallstones 2. Common bile duct is mildly dilated with no visualized evidence for obstruction is seen. This document is electronically signed by Hermila Vaughan MD., April 21 2018 07:40:56 PM ET
[2018-04-22] MEDS: SODIUM CHLORIDE FLUSH SYRINGE 10 ML IV SCH ×4 (01:19→23:16)
[2018-04-22] MEDS: FLAGYL 500 MG/100 ML 500 MG/100 ML BAG IV SCH ×3 (01:19→14:34)
[2018-04-22 07:12] LABS: Basophils # (Auto) 0.2 K/mm3 (0.0-0.1); Eosinophils # (Auto) 0.6 K/mm3 (0.0-0.4); Eosinophils % (Auto) 3.9 % (0.0-4.3); Hematocrit 32.6 % (35.5-45.6); Hemoglobin 10.8 gm/dl (11.8-15.2); Lymphocytes # (Auto) 1.4 K/mm3 (1.2-5.4); Lymphocytes % (Auto) 8.9 % (13.4-35.0); Mean Corpuscular HGB Conc 33 % (32-34); Mean Corpuscular Volume 85 fl (84-94); Monocytes # (Auto) 1.7 K/mm3 (0.0-0.8); Monocytes % (Auto) 10.6 % (0.0-7.3); Platelet Count 227 K/mm3 (140-440); Red Blood Count 3.85 M/mm3 (3.65-5.03); Red Cell Distribution Width 14.5 % (13.2-15.2)
[2018-04-22 09:27] LABS: Albumin 2.1 g/dL (3.9-5)
[2018-04-22] MEDS: MAXIPIME/NS 2 GM/100 ML 2 GM/100 ML BAG IV SCH (09:50)
[2018-04-22] MEDS: LOPRESSOR PO SCH (09:51)
--- NOTE | 2018-04-22 10:01 | Progress Note ---
Assessment and Plan - Patient Problems (1) Acute kidney failure Current Visit: Yes Status: Acute Plan to address problem: Acute kidney injury acute tubular necrosis versus acute tubulointerstitial nephritis. Patient had a high vancomycin trough. Blood pressure was a bit low but no overt episode of hypotension documented. No exposure to radiocontrast nor nonsteroidal anti-inflammatory drugs. Kidney function is improving. Follow-up electrolytes and renal function. (2) Electrolyte abnormality Current Visit: Yes Status: Acute Plan to address problem: Hyponatremia and hypokalemia resolved. Hypocalcemia noted but probably factitious as corrected calcium is normal. Calcium improved today (3) Cerebral palsy Current Visit: Yes Status: Acute Plan to address problem: Patient is bedbound. Continue management (4) Seizure disorder Current Visit: Yes Status: Acute Plan to address problem: Continue treatment (5) Sepsis Current Visit: Yes Status: Acute Qualifiers: Sepsis type: sepsis due to unspecified organism Qualified Code(s): A41.9 - Sepsis, unspecified organism Plan to address problem: Cultures negative so far. Probably bilateral upper lobe and right lower lobe pneumonia. Continue empiric antibiotics per infectious diseases workforce consultant (6) Leukocytosis Current Visit: Yes Status: Acute Qualifiers: Leukocytosis type: unspecified Qualified Code(s): D72.829 - Elevated white blood cell count, unspecified Plan to address problem: Leukocytosis is unchanged. Follow-up white blood cell counts. Follow-up cultures. Noncontrast CT of the abdomen and pelvis ordered per Infectious disease Subjective Date of service: 04/22/18 Principal diagnosis: acute kidney injury Interval history: Patient seen lying in bed. Mother is at the bedside this morning. Patient is nonverbal due to eyes are open. Not following commands Objective - Exam Narrative Exam: Middle-aged -[place] male lying in bed in no acute distress HEENT: NCAT, pink oral mucous membrane Neck: Supple, no venous distention CVS: S1S2 RRR with no murmur, rub or gallop Chest: Coarse breath sounds with Bilateral low pitched rhonchi Abdomen: Protuberant, soft, nontender, no organomegaly, bowel sounds are present Extremities: No edema, contractures noted both upper and lower extremities Genitourinary deferred Skin warm and dry, Neuro: Eyes open, not following commands - Vital Signs Vital signs: Vital Signs - 12hr 04/21/18 04/21/18 04/21/18 22:00 22:01 23:00 Temperature Pulse Rate 91 H 91 H 97 H Respiratory 25 H 21 Rate Blood Pressure 118/68 111/77 O2 Sat by Pulse 97 97 Oximetry 04/22/18 04/22/18 04/22/18 00:00 01:00 02:00 Temperature 99.6 F Pulse Rate 94 H 102 H 89 Respiratory 30 H 31 H 27 H Rate Blood Pressure 114/68 123/72 125/83 O2 Sat by Pulse 97 91 97 Oximetry 04/22/18 04/22/18 04/22/18 03:00 04:00 05:00 Temperature 99.5 F Pulse Rate 98 H 98 H 104 H Respiratory 26 H 24 21 Rate Blood Pressure 111/78 110/75 109/70 O2 Sat by Pulse 98 95 98 Oximetry 04/22/18 04/22/18 04/22/18 06:01 07:00 08:00 Temperature Pulse Rate 108 H 97 H 101 H Respiratory 30 H 28 H 16 Rate Blood Pressure 128/86 132/91 137/89 O2 Sat by Pulse 96 95 96 Oximetry 04/22/18 04/22/18 09:00 09:51 Temperature Pulse Rate 103 H 102 H Respiratory 30 H Rate Blood Pressure 137/91 137/91 O2 Sat by Pulse 95 Oximetry - Lab 04/22/18 05:57 04/22/18 05:57 Most recent lab results Calcium 8.0 mg/dL (8.4-10.2) L 04/22/18 05:57 Phosphorus 3.40 mg/dL (2.5-4.5) 04/22/18 05:57 Urine Creatinine 110.1 mg/dL (0.1-20.0) H 04/19/18 16:00 Urine Sodium 74 mmol/L 04/19/18 16:00 Urine Total Protein 46 mg/dL (5-11.8) H 04/19/18 16:00 Medications & Allergies - Medications Allergies/Adverse Reactions: Allergies No Known Allergies Allergy (Unverified 04/14/18 12:46) Home Medications: Home Medications Medication Instructions Recorded Confirmed Last Taken Type Benazepril HCl [Lotensin] 10 mg PO DAILY 04/14/18 04/14/18 Unknown History Lactulose [Constulose] 2.5 tsp PO BID 04/14/18 04/14/18 Unknown History Metoprolol Tartrate 100 mg PO DAILY 04/14/18 04/14/18 Unknown History PHENobarbital [Phenobarbital] 2.5 tsp PO BID 04/14/18 04/14/18 Unknown History Active Medications: Generic Name Dose Route Start Last Admin Trade Name Freq PRN Reason Stop Dose Admin Acetaminophen 650 mg 04/15/18 01:05 04/20/18 23:05 Tylenol FEEDTUBE 650 mg Q4H PRN Administration Fever >101 Lipase/Protease/Amylase 1 each 04/15/18 10:31 Pancreaze 10,500 Unit FEEDTUBE PRN PRN For Clogged Feeding Tube Metronidazole 500 mg in 100 mls @ 100 mls/hr 04/16/18 15:00 04/22/18 08:22 Flagyl 500 Mg/100 Ml IV 100 mls/hr Q8HR MARLEEN Administration Protocol Sodium Chloride 1,000 mls @ 75 mls/hr 04/17/18 19:00 04/21/18 19:17 Nacl 0.9% 1000 Ml IV 125 mls/hr DIRECT MARLEEN Administration Cefepime HCl 2 gm in 100 mls @ 200 mls/hr 04/20/18 13:00 04/22/18 09:50 Maxipime/Ns 2 Gm/100 Ml IV 200 mls/hr Q24HR MARLEEN Administration Protocol Lactulose 2.5 gm 04/16/18 08:47 Cephulac PO BID PRN Constipation Metoprolol Tartrate 100 mg 04/15/18 10:00 04/22/18 09:51 Lopressor PO 100 mg DAILY MARLEEN Administration Phenobarbital 50 mg 04/14/18 22:00 04/22/18 01:33 Phenobarbital PO 50 mg BID MARLEEN Administration Scopolamine 1 each 04/15/18 09:00 04/21/18 19:22 Transderm-Scop TD 1 each Q3D MARLEEN Administration Simple Syrup 15 ml 04/15/18 10:31 Simple Syrup FEEDTUBE PRN PRN Hypoglycemia Simple Syrup 30 ml 04/15/18 10:31 Simple Syrup FEEDTUBE PRN PRN Hypoglycemia Sodium Bicarbonate 325 mg 04/15/18 10:31 Sodium Bicarbonate FEEDTUBE PRN PRN For Clogged Feeding Tube Sodium Chloride 10 ml 04/14/18 22:00 04/22/18 09:50 Sodium Chloride Flush Syringe 10 Ml IV 10 ml BID MARLEEN Administration Sodium Chloride 10 ml 04/14/18 15:41 Sodium Chloride Flush Syringe 10 Ml IV PRN PRN LINE FLUSH
[2018-04-22] MEDS: NACL 0.9% 1000 ML 1,000 ML IV SCH (11:52)
--- NOTE | 2018-04-22 13:25 | Progress Note ---
Assessment and Plan / Sepsis admitted with Sepsis Protocol: Continue IMCU care, IVF resuscitation, monitor uop q shift, Blood cultures, URINE culture so far with no growth. Throat culture- NEGATIVE Leukocytosis improving AJIT negative for vegiation Unknown source at this time but Possible aspiration pneumonia considering on admission patient noted for oropharyngeal congestion and gurgling prior to admission, hence, continued treatment for aspiration. repeat CT chest/abdomen/pelvis showed b/l UL consolidation and RUQ US showed gall stone but no obstruction ID consulted. continue abx per them. Need to discontinue femoral central line and place midline- BUT HAS NOT BEEN DONE DUE TO PATIENT SEVERE CONTRACTURE. WILL DISCUSS WITH ID PATIENT STILL HAS INTERMITTENT FEVER. / Respiratory failure-acute on chronic with hypoxia cont Supplemental oxygen, nebulizer therapy, NIPPV as NEEDED. Possible Aspiration related. Patients mom, states that the patient gets some oral fed intermittently, has infrequent nausea with vomiting. Scopolamine due to secretion management / Pulmonary vascular congestion - could be from renal failure? -Echo noted- EF 55-60 / ZAIRE secondary to vasomotor nephropathy -Consulted Bilingual Secretary -Continue IV fluids, Cr improving / Metabolic Acidosis due to renal failure s/p Bicarb iv x 1 /Hyponatremia syndrome IVF resuscitation therapy, monitor uop q shift, repeat bmp, / Mental Retardation secondary To CP Continue supportive care / Hypokalemia Replace as needed /Complete Immobility due to frailty patient is non mobile and bed bound due to chronic medical condition. /DVT prophylaxis SCD to BLE while in bed. Discussed with nursings staff. Brief history: 43 YO Male with HTN, Seizure Disorder, Cerebal Palsy presents to ED for evaluation by EMS for shortness of breath and felt like he was having fever, and just "didnt look right".. Pt is lethargic and nonverbal at baseline and unable to provide history. Pt history taken from mother. EMS notified, and upon arrival the patient was found to have respiratory distress, with excess oral secretions in his oral pharynx. Pt transported to [facility] for further care. Pt seen and evaluated in ED and found to have Sepsis, as well as Acute Respiratory Failure. Pt admitted to IMCU and initiated on sepsis protocol. Primary care physician is Dr. Scott. CXR: 04/16/17 : 1. Mild prominence of the bronchopulmonary markings; DDX includes mild noncardiogenic pulmonary congestion, bronchitis, and developing bronchopneumonia in the appropriate clinical setting. Clinical correlation is advised. 2. Bone Increased opacity in the right lung base with elevation of the right hemidiaphragm in keeping with basilar atelectasis and/or small pleural effusion; cannot rule out a pneumonic infiltrate in the appropriate clinical setting. Recommend clinical correlation and appropriate followup evaluation as clinically warranted. * Although Clinically improving, his o2 requirements is down to nasal cannula without any further increase in wob, he is still with low grade fever. * Discontinue Lasix, and started on fluids with some improvement in renal function * Nephrology following, avoid all nephrotoxic meds, possible vanc toxicity, Kaylinie is now trending down * ordered CT of abdomen pelvis and RUQ US for persistent fevers and leukocytosis Atalectasis: on chest xray. Started on CHEST PHYSIOTHERAPY. Also teach mother how to perform this on discharge. Hospitalist Physical - Physical exam Narrative exam: General appearance: Present: mild distress - EENT Eyes: Present: no congestion or icterus ENT: no ear discharge, clear oral mucosa - Neck Neck: Present: supple, normal ROM - Respiratory Respiratory effort: normal Respiratory: bilateral: diminished, crackles - Cardiovascular Rhythm: other Regular with intermittent tachycardia Heart Sounds: Present: S1 & S2. Absent: rub, click - Extremities Extremities: pulses symmetrical, Trace Edema Bilateral upper ext. - Abdominal General gastrointestinal: Present: soft, non-tender, non-distended, normal bowel sounds Male genitourinary: Present: normal - Integumentary Integumentary: Present: clear, warm, dry - Musculoskeletal Musculoskeletal: generalized weakness, contracted - Psychiatric Psychiatric: no appropriate mood/affect, no intact judgment & insight, no memory intact - Neurologic Neurologic: contracted, aphasic Subjective Date of service: 04/22/18 Principal diagnosis: acute kidney injury Interval history: Patient seen and examined, remains on nasal cannula, afebrile, breathing remains stable, tolerating TF Objective - Constitutional Vitals: Vital Signs - 12hr 04/22/18 04/22/18 04/22/18 02:00 03:00 04:00 Temperature 99.5 F Pulse Rate 89 98 H 98 H Pulse Rate [ From Monitor] Respiratory 27 H 26 H 24 Rate Blood Pressure 125/83 111/78 110/75 O2 Sat by Pulse 97 98 95 Oximetry 04/22/18 04/22/18 04/22/18 04:45 05:00 06:01 Temperature Pulse Rate 104 H 108 H Pulse Rate [ 98 H From Monitor] Respiratory 24 21 30 H Rate Blood Pressure 109/70 128/86 O2 Sat by Pulse 98 98 96 Oximetry 04/22/18 04/22/18 04/22/18 07:00 08:00 09:00 Temperature Pulse Rate 97 H 101 H 103 H Pulse Rate [ From Monitor] Respiratory 28 H 16 30 H Rate Blood Pressure 132/91 137/89 137/91 O2 Sat by Pulse 95 96 95 Oximetry 04/22/18 04/22/18 09:25 09:51 Temperature Pulse Rate 102 H Pulse Rate [ From Monitor] Respiratory Rate Blood Pressure 137/91 O2 Sat by Pulse 99 Oximetry - Labs CBC & Chem 7: 04/22/18 05:57 04/23/18 07:40 Labs: Abnormal lab results 04/22/18 04/22/18 Range/Units 05:57 05:57 WBC 15.6 H (4.5-11.0) K/mm3 Hgb 10.8 L (11.8-15.2) gm/dl Hct 32.6 L (35.5-45.6) % Lymph % (Auto) 8.9 L (13.4-35.0) % [place] % (Auto) 10.6 H (0.0-7.3) % [place] # 1.7 H (0.0-0.8) K/mm3 Eos # 0.6 H (0.0-0.4) K/mm3 Baso # 0.2 H (0.0-0.1) K/mm3 Seg Neutrophils % 75.6 H (40.0-70.0) % Seg Neutrophils # 11.8 H (1.8-7.7) K/mm3 Chloride 109.4 H (98-107) mmol/L BUN 34 H (9-20) mg/dL Creatinine 2.4 H (0.8-1.5) mg/dL Glucose 122 H (75-100) mg/dL Calcium 8.0 L (8.4-10.2) mg/dL Albumin 2.1 L (3.9-5) g/dL
[2018-04-22] MEDS ORDERED: LASIX IV ONE (20:25)
[2018-04-22] MEDS: TYLENOL FEEDTUBE PRN (20:55)
[2018-04-23] MEDS: TYLENOL FEEDTUBE PRN (05:01)
[2018-04-23 08:20] LABS: Calcium 8.4 mg/dL (8.4-10.2)
[2018-04-23] MEDS: MAXIPIME/NS 2 GM/100 ML 2 GM/100 ML BAG IV SCH (11:24)
[2018-04-23] MEDS: LOPRESSOR PO SCH (11:25)
[2018-04-23] MEDS: SODIUM CHLORIDE FLUSH SYRINGE 10 ML IV SCH ×2 (11:26→22:00)
--- NOTE | 2018-04-23 12:27 | Progress Note ---
Assessment and Plan / Sepsis admitted with Sepsis Protocol: Currently on cefepime and flagyl Continue IMCU care, IVF resuscitation, monitor uop q shift, Blood cultures, URINE culture so far with no growth. Throat culture- NEGATIVE Leukocytosis improving AJIT negative for vegiation Unknown source at this time but Possible aspiration pneumonia considering on admission patient noted for oropharyngeal congestion and gurgling prior to admission, hence, continued treatment for aspiration. Repeat CT chest/abdomen/pelvis showed b/l UL consolidation and RUQ US showed gall stone, dilated CBD but no obstruction ID consulted. continue abx per them. wait for further recommendation / Respiratory failure-acute on chronic with hypoxia cont Supplemental oxygen, nebulizer therapy, NIPPV as NEEDED. Possible Aspiration related. Patients mom, states that the patient gets some oral fed intermittently, has infrequent nausea with vomiting. Scopolamine due to secretion management / Pulmonary vascular congestion - could be from renal failure? -Echo noted- EF 55-60 / ZAIRE secondary to vasomotor nephropathy vs Acute kidney injury acute tubular necrosis vs acute tubulointerstitial nephritis -Consulted Compliance Testing Analyst - was briefly hypotensive and had high vancomycin level -Continue IV fluids, off vanc, Cr improving / Metabolic Acidosis due to renal failure s/p Bicarb iv x 1 /Hyponatremia syndrome, resolved IVF resuscitation therapy, monitor uop q shift, repeat bmp, / Mental Retardation secondary To CP Continue supportive care / Hypokalemia Replace as needed /Complete Immobility due to frailty patient is non mobile and bed bound due to chronic medical condition - cerebral palsy. /DVT prophylaxis SCD to BLE while in bed. Discussed with nursings staff and mother. Brief history: 43 YO Male with HTN, Seizure Disorder, Cerebal Palsy presents to ED for evaluation by EMS for shortness of breath and felt like he was having fever, and just "didnt look right".. Pt is lethargic and nonverbal at baseline and unable to provide history. Pt history taken from mother. EMS notified, and upon arrival the patient was found to have respiratory distress, with excess oral secretions in his oral pharynx. Pt transported to [facility] for further care. Pt seen and evaluated in ED and found to have Sepsis, as well as Acute Respiratory Failure. Pt admitted to IMCU and initiated on sepsis protocol. Primary care physician is Dr. Scott. * Although Clinically improving, his o2 requirements is down to nasal cannula without any further increase in wob, he is still with intermittent low grade fever. * Discontinued Lasix, and started on fluids with some improvement in renal function * Nephrology following, avoid all nephrotoxic meds, possible vanc toxicity, Omar is now trending down * ordered CT of abdomen pelvis and RUQ US for persistent fevers and leukocytosis CXR: 04/16/17 : 1. Mild prominence of the bronchopulmonary markings; DDX includes mild noncardiogenic pulmonary congestion, bronchitis, and developing bronchopneumonia in the appropriate clinical setting. Clinical correlation is advised. 2. Bone Increased opacity in the right lung base with elevation of the right hemidiaphragm in keeping with basilar atelectasis and/or small pleural effusion; cannot rule out a pneumonic infiltrate in the appropriate clinical setting. Recommend clinical correlation and appropriate followup evaluation as clinically warranted. Atalectasis: on chest xray. Started on CHEST PHYSIOTHERAPY. Also teach mother how to perform this on discharge. Hospitalist Physical - Physical exam Narrative exam: General appearance: Present: mild distress - EENT Eyes: Present: no congestion or icterus ENT: no ear discharge, clear oral mucosa - Neck Neck: Present: supple, normal ROM - Respiratory Respiratory effort: normal Respiratory: bilateral: diminished, crackles - Cardiovascular Rhythm: other Regular with intermittent tachycardia Heart Sounds: Present: S1 & S2. Absent: rub, click - Extremities Extremities: pulses symmetrical, Trace Edema Bilateral upper ext. - Abdominal General gastrointestinal: Present: soft, non-tender, non-distended, normal bowel sounds Male genitourinary: Present: normal - Integumentary Integumentary: Present: clear, warm, dry - Musculoskeletal Musculoskeletal: generalized weakness, contracted - Psychiatric Psychiatric: no appropriate mood/affect, no intact judgment & insight, no memory intact - Neurologic Neurologic: contracted, aphasic Subjective Date of service: 04/23/18 Principal diagnosis: acute kidney injury Interval history: Patient seen and examined, remains on nasal cannula, afebrile, breathing remains stable, tolerating TF discussed with mother at bedside Objective - Constitutional Vitals: Vital Signs - 12hr 04/23/18 04/23/18 04/23/18 01:00 01:06 02:00 Temperature 99.1 F Pulse Rate 98 H 112 H Pulse Rate [ From Monitor] Respiratory 33 H 19 Rate Blood Pressure 139/90 130/90 O2 Sat by Pulse 99 98 Oximetry 04/23/18 04/23/18 04/23/18 03:00 04:00 05:00 Temperature Pulse Rate 110 H 108 H 108 H Pulse Rate [ 100 H From Monitor] Respiratory 21 34 H 37 H Rate Blood Pressure 146/95 144/93 148/99 O2 Sat by Pulse 98 91 95 Oximetry 04/23/18 04/23/18 04/23/18 06:00 07:00 11:25 Temperature Pulse Rate 98 H 104 H 106 H Pulse Rate [ From Monitor] Respiratory 18 22 Rate Blood Pressure 144/90 156/109 150/105 O2 Sat by Pulse 95 93 Oximetry - Labs CBC & Chem 7: 04/22/18 05:57 04/23/18 07:40 Labs: Abnormal lab results 04/23/18 Range/Units 07:40 Chloride 107.8 H (98-107) mmol/L BUN 34 H (9-20) mg/dL Creatinine 2.0 H (0.8-1.5) mg/dL Glucose 131 H (75-100) mg/dL
--- NOTE | 2018-04-23 14:56 | Progress Note ---
Assessment and Plan - Patient Problems (1) Acute kidney failure Current Visit: Yes Status: Acute Plan to address problem: Acute kidney injury acute tubular necrosis versus acute tubulointerstitial nephritis. Patient had a high vancomycin trough. Blood pressure was a bit low but no overt episode of hypotension documented. No exposure to radiocontrast nor nonsteroidal anti-inflammatory drugs. Kidney function is improving. There is concern for fluid retention. We'll get chest x-ray and if shows signs of pulmonary edema, we'll stop intravenous fluids. For now we will decrease IV fluids Follow-up electrolytes and renal function. (2) Electrolyte abnormality Current Visit: Yes Status: Acute Plan to address problem: Hyponatremia and hypokalemia resolved. Hypocalcemia noted but probably factitious as corrected calcium is normal. Calcium improved today (3) Cerebral palsy Current Visit: Yes Status: Acute Plan to address problem: Patient is bedbound. Continue management (4) Seizure disorder Current Visit: Yes Status: Acute Plan to address problem: Continue treatment (5) Sepsis Current Visit: Yes Status: Acute Qualifiers: Sepsis type: sepsis due to unspecified organism Qualified Code(s): A41.9 - Sepsis, unspecified organism Plan to address problem: Cultures negative so far. Probably bilateral upper lobe and right lower lobe pneumonia. Continue empiric antibiotics per infectious diseases vendor management consultant (6) Leukocytosis Current Visit: Yes Status: Acute Qualifiers: Leukocytosis type: unspecified Qualified Code(s): D72.829 - Elevated white blood cell count, unspecified Plan to address problem: Leukocytosis is slowly improving. Continue antibiotics per infectious disease. Follow-up white blood cell counts. Subjective Date of service: 04/23/18 Principal diagnosis: acute kidney injury Interval history: Patient seen lying in bed. Mother is not at the bedside. Patient is nonverbal. Not following commands Objective - Exam Narrative Exam: Middle-aged -Greek male lying in bed in no acute distress HEENT: NCAT, pink oral mucous membrane Neck: Supple, no venous distention CVS: S1S2 RRR with no murmur, rub or gallop Chest: Coarse breath sounds with Bilateral low pitched rhonchi Abdomen: Protuberant, soft, nontender, no organomegaly, bowel sounds are present Extremities: No edema, contractures noted both upper and lower extremities Genitourinary deferred Skin warm and dry, Neuro: Eyes open, not following commands - Vital Signs Vital signs: Vital Signs - 12hr 04/23/18 04/23/18 04/23/18 03:00 04:00 05:00 Pulse Rate 110 H 108 H 108 H Pulse Rate [ 100 H From Monitor] Respiratory 21 34 H 37 H Rate Blood Pressure 146/95 144/93 148/99 O2 Sat by Pulse 98 91 95 Oximetry 04/23/18 04/23/18 04/23/18 06:00 07:00 11:25 Pulse Rate 98 H 104 H 106 H Pulse Rate [ From Monitor] Respiratory 18 22 Rate Blood Pressure 144/90 156/109 150/105 O2 Sat by Pulse 95 93 Oximetry - Lab 04/22/18 05:57 04/23/18 07:40 Most recent lab results Calcium 8.4 mg/dL (8.4-10.2) 04/23/18 07:40 Phosphorus 3.40 mg/dL (2.5-4.5) 04/22/18 05:57 Urine Creatinine 110.1 mg/dL (0.1-20.0) H 04/19/18 16:00 Urine Sodium 74 mmol/L 04/19/18 16:00 Urine Total Protein 46 mg/dL (5-11.8) H 04/19/18 16:00 Medications & Allergies - Medications Allergies/Adverse Reactions: Allergies No Known Allergies Allergy (Unverified 04/14/18 12:46) Home Medications: Home Medications Medication Instructions Recorded Confirmed Last Taken Type Benazepril HCl [Lotensin] 10 mg PO DAILY 04/14/18 04/14/18 Unknown History Lactulose [Constulose] 2.5 tsp PO BID 04/14/18 04/14/18 Unknown History Metoprolol Tartrate 100 mg PO DAILY 04/14/18 04/14/18 Unknown History PHENobarbital [Phenobarbital] 2.5 tsp PO BID 04/14/18 04/14/18 Unknown History Active Medications: Generic Name Dose Route Start Last Admin Trade Name Freq PRN Reason Stop Dose Admin Acetaminophen 650 mg 04/15/18 01:05 04/23/18 05:01 Tylenol FEEDTUBE 650 mg Q4H PRN Administration Fever >101 Lipase/Protease/Amylase 1 each 04/15/18 10:31 Pancrelexi [place] 10,500 Unit FEEDTUBE PRN PRN For Clogged Feeding Tube Sodium Chloride 1,000 mls @ 75 mls/hr 04/17/18 19:00 04/22/18 11:52 Nacl 0.9% 1000 Ml IV 125 mls/hr DIRECT MARLEEN Administration Cefepime HCl 2 gm in 100 mls @ 200 mls/hr 04/20/18 13:00 04/23/18 11:24 Maxipime/Ns 2 Gm/100 Ml IV 200 mls/hr Q24HR MARLEEN Administration Protocol Lactulose 2.5 gm 04/16/18 08:47 Cephulac PO BID PRN Constipation Metoprolol Tartrate 100 mg 04/15/18 10:00 04/23/18 11:25 Lopressor PO 100 mg DAILY MARLEEN Administration Phenobarbital 50 mg 04/14/18 22:00 04/23/18 11:24 Phenobarbital PO 50 mg BID MARLEEN Administration Scopolamine 1 each 04/15/18 09:00 04/21/18 19:22 Transderm-Scop TD 1 each Q3D MARLEEN Administration Simple Syrup 15 ml 04/15/18 10:31 Simple Syrup FEEDTUBE PRN PRN Hypoglycemia Simple Syrup 30 ml 04/15/18 10:31 Simple Syrup FEEDTUBE PRN PRN Hypoglycemia Sodium Bicarbonate 325 mg 04/15/18 10:31 Sodium Bicarbonate FEEDTUBE PRN PRN For Clogged Feeding Tube Sodium Chloride 10 ml 04/14/18 22:00 04/23/18 11:26 Sodium Chloride Flush Syringe 10 Ml IV 10 ml BID MARLEEN Administration Sodium Chloride 10 ml 04/14/18 15:41 Sodium Chloride Flush Syringe 10 Ml IV PRN PRN LINE FLUSH
[2018-04-23] MEDS ORDERED: NACL 0.45% 1000 ML 1,000 ML IV SCH (15:00)
--- NOTE | 2018-04-23 15:48 | Progress Note ---
Assessment and Plan Cultures: 04/14/18 Blood: no growth to date 04/14/18 Urine; no growth to date 03/17/18 Group A Strep Positive 04/17/18: Blood: no growth to date A/P: 43-year-old male with a past medical history of of HTN, Seizure disorder, CP, admitted with: 1, Sepsis on Admission: Persistent low grade fever; multifocal pneumonia, UTI, ? cholecystitis -Repeat CXR 04/16/18: DDX includes mild noncardiogenic pulmonary congestion, bronchitis, and developing bronchopneumonia in the appropriate clinical setting. -TTE no valvular vegetation -Influenza Rapid- negative -US showed Gallbladder is filled with gallstones. Common bile duct is mildly dilated with no visualized evidence for obstruction is seen. -UA 04/17 c/w UTI -CT showed pulmonary consolidation in the upper lobes bilaterally and right lower lobe. Atelectasis versus infiltrates. This appears to be slightly decreased compared with a previous chest CT dated April 19, 2017. Also mild str anding of the perivesicular fat which can be seen with cystitis, small collections of air in the right renal pelvis. Gallstones within the gallbladder. Scoliosis with retained hardware in the thoracic and lumbar spine, dysplastic appearance of the hip joints bilaterally and degenerative change of the right SI joint. 2. Acute Hypoxemic Respiratory Failure etiology volume overload vs aspiration. Chest Xray shows Mild cardiomegaly and pulmonary venous congestion.,Currently on 024L NC. 3. Mental Retardation secondary to CP: 4. ZAIRE: better Plan: - HIDA in the morning - Continue Cefepime 2gms every 24 hours, D4 - Continue Flagyl 500mg IV every 8 hours, D8 - monitor fever Dr Maggie siegel tomorrow Lilia Campos MD Infectious Diseases Senior Accountant [employer] [facility], [facility] ([facility] M [phone] O [phone] Subjective Date of service: 04/23/18 Principal diagnosis: acute kidney injury Interval history: Remains non verbal tmax 100.1 Objective - Exam Narrative Exam: General appearance: somnolent in NAD, non verbal +loud snoring Eyes: anicteric sclerae, moist conjunctivae; no lid-lag; PERRLA HENT: Atraumatic; oropharynx limited Neck: Trachea midline; supple, no thyromegaly or lymphadenopathy Lungs: anthony coarse BS CV: RRR Abdomen: Soft, non-tender;PEG Extremities: contracted Skin: Normal temperature, turgor and texture; no rash, ulcers or subcutaneous nodules Psych: no agitated. Neuro:somnolent - Constitutional Vitals: Vital Signs Temp Pulse Resp BP Pulse Ox 99.1 F 106 H 22 150/105 93 04/23/18 01:06 04/23/18 11:25 04/23/18 07:00 04/23/18 11:25 04/23/18 07:00 Temperature -Last 24 Hours Temperature 99.1 F Temperature 100.1 F - Labs CBC & Chem 7: 04/22/18 05:57 04/23/18 07:40 Labs: Abnormal lab results 04/23/18 Range/Units 07:40 Chloride 107.8 H (98-107) mmol/L BUN 34 H (9-20) mg/dL Creatinine 2.0 H (0.8-1.5) mg/dL Glucose 131 H (75-100) mg/dL
[2018-04-23] MEDS: CATAPRES PO SCH (16:28)
--- NOTE | 2018-04-23 16:51 | XRay Report ---
PROCEDURE: XR CHEST 1V AP TECHNIQUE: Single frontal view of the chest HISTORY: Dyspnea COMPARISONS: Chest radiograph performed on 04/19/2017 FINDINGS: The cardiac mediastinal silhouette is normal in appearance. Patchy and hazy opacity in the periphery of the left lung and the right lower lobe, slightly increase d since the previous study. No pleural effusion or pneumothorax. No acute bony or soft tissue abnormality. Unchanged posterior fusion hardware of the thoracic spine. IMPRESSION: Patchy airspace disease in the periphery of the left lung and within the right lower lobe, increased since the previous study. This document is electronically signed by Christina Conrad MD., April 23 2018 04:48:52 PM ET
[2018-04-24] MEDS: TYLENOL FEEDTUBE PRN ×2 (04:52→22:13)
--- NOTE | 2018-04-24 10:27 | Progress Note ---
Assessment and Plan Assessment and Plan Cultures: 04/14/18 Blood: no growth to date 04/14/18 Urine; no growth to date 03/17/18 Group A Strep Positive 04/17/18: Blood: no growth to date A/P: 43-year-old male with a past medical history of of HTN, Seizure disorder, CP, admitted with: 1, Sepsis on Admission: Persistent low grade fever; multifocal pneumonia, UTI, ? cholecystitis -Repeat CXR 04/16/18: DDX includes mild noncardiogenic pulmonary congestion, bronchitis, and developing bronchopneumonia in the appropriate clinical setting. -TTE no valvular vegetation -Influenza Rapid- negative -US showed Gallbladder is filled with gallstones. Common bile duct is mildly dilated with no visualized evidence for obstruction is seen. -UA 04/17 c/w UTI -CT showed pulmonary consolidation in the upper lobes bilaterally and right lower lobe. Atelectasis versus infiltrates. This appears to be slightly decreased compared with a previous chest CT dated April 19, 2017. Also mild stranding of the perivesicular fat which can be seen with cystitis, small collections of air in the right renal pelvis. Gallstones within the gallbladder. Scoliosis with retained hardware in the thoracic and lumbar spine, dysplastic appearance of the hip joints bilaterally and degenerative change of the right SI joint. 2. Acute Hypoxemic Respiratory Failure etiology volume overload vs aspiration. Chest Xray shows Mild cardiomegaly and pulmonary venous congestion.,Currently on 03/13L NC. 3. Mental Retardation secondary to CP: 4. ZAIRE: better Plan: - f/u HIDA scan - Continue Cefepime 2gms every 24 hours, D7 - Continue Flagyl 500mg IV every 8 hours, D11 - monitor fever Adina Desai NP [facility] M: [phone] O:[phone] Subjective Date of service: 04/24/18 Principal diagnosis: acute kidney injury Interval history: patient seen and examined. Alert, no acute distress observed. Mother at bedside. Objective - Exam Narrative Exam: Constitutional: Awake, alert. CP No acute distress Head, Ears, Nose: Normocephalic, atraumatic. External ears, nose normal Eyes: Conjunctivae/corneas clear. No icterus. No ptosis. Neck: Supple, no meningeal signs Oral: dentition poor. no thrush . + macroglossia Cardiovascular: S1, S2 normal. Respiratory: scattered rhonchi, 02/2L nc GI: Soft, non-tender; bowel sounds normal. No peritoneal signs Musculoskeletal: No pedal edema, no cyanosis., + hand contractures Skin: No rash or abscess. Hem/Lymphatic: No palpable cervical or supraclavicular nodes. No lymphangitis Psych: CP Neurological: CP, - Constitutional Vitals: Vital Signs Temp Pulse Resp BP Pulse Ox 99.0 F 102 H 25 H 146/96 98 04/24/18 08:00 04/24/18 07:00 04/24/18 07:00 04/24/18 07:00 04/24/18 08:46 Temperature -Last 24 Hours Temperature 99.0 F Temperature 99.2 F Temperature 100.4 F Temperature 99.1 F Temperature 99.6 F - Labs CBC & Chem 7: 04/22/18 05:57 04/23/18 07:40
[2018-04-24] MEDS: TRANSDERM-SCOP TD SCH (11:57)
[2018-04-24] MEDS: CATAPRES PO SCH ×3 (11:58→22:14)
[2018-04-24] MEDS: LOPRESSOR PO SCH (11:58)
[2018-04-24] MEDS: MAXIPIME/NS 2 GM/100 ML 2 GM/100 ML BAG IV SCH (12:00)
[2018-04-24] MEDS: SODIUM CHLORIDE FLUSH SYRINGE 10 ML IV SCH ×2 (12:00→22:16)
--- NOTE | 2018-04-24 13:13 | Progress Note ---
Assessment and Plan - Patient Problems (1) Acute kidney failure Current Visit: Yes Status: Acute Plan to address problem: Overall renal function continues to improve since admission, possibly ATN vs AIN given increased vanc trough levels. He has increased LE and UE swelling and edema, therefore we will discontinue his standing IVF at the present time, especially given his higher blood pressure readings. Will monitor renal function daily. (2) Electrolyte abnormality Current Visit: Yes Status: Acute Plan to address problem: His overall electrolyte abnormalities have improved. Will continue to monitor. (3) Sepsis Current Visit: Yes Status: Acute Qualifiers: Sepsis type: sepsis due to unspecified organism Qualified Code(s): A41.9 - Sepsis, unspecified organism Plan to address problem: Unclear etiology, possible underlying PNA. Antibiotic coverage per ID recommendations, to be dosed appropriately for his decreased renal clearance. Pending HIDA scan today. (4) Leukocytosis Current Visit: Yes Status: Acute Qualifiers: Leukocytosis type: unspecified Qualified Code(s): D72.829 - Elevated white blood cell count, unspecified Plan to address problem: Infectious disease workup noted, He is pending HIDA scan this afternoon. Levels are stable. (5) Seizure disorder Current Visit: Yes Status: Acute Plan to address problem: Favor to continue current regimen, No acute issues since admission, further management per primary team attending. Subjective Date of service: 04/24/18 Principal diagnosis: acute kidney injury Interval history: No acute changes overnight. He is pending HIDA scan. Labs noted and overall renal function is improving. Issue no is worsening edema and concern for fluid overload. Chest xray reviewed. Objective - Vital Signs Vital signs: Vital Signs - 12hr 04/24/18 04/24/18 04/24/18 02:00 03:00 03:10 Temperature 99.2 F Pulse Rate 100 H 98 H Pulse Rate [ From Monitor] Respiratory 21 25 H Rate Blood Pressure 119/63 114/63 O2 Sat by Pulse 97 Oximetry 04/24/18 04/24/18 04/24/18 04:00 05:00 06:00 Temperature Pulse Rate 111 H 112 H Pulse Rate [ 96 H From Monitor] Respiratory 21 31 H 24 Rate Blood Pressure 119/63 138/90 145/94 O2 Sat by Pulse 99 99 99 Oximetry 04/24/18 04/24/18 04/24/18 07:00 08:00 08:46 Temperature 99.0 F Pulse Rate 102 H Pulse Rate [ From Monitor] Respiratory 25 H Rate Blood Pressure 146/96 O2 Sat by Pulse 98 98 Oximetry 04/24/18 04/24/18 11:58 12:00 Temperature 98.4 F Pulse Rate 89 Pulse Rate [ From Monitor] Respiratory Rate Blood Pressure 147/94 O2 Sat by Pulse Oximetry - General Appearance General appearance: chronically ill EENT: ATNC, PERRL Neck: no JVD, no thyromegaly Respiratory: Present: Wheezes Cardiology: regular, S1S2 Gastrointestinal: normal, normoactive bowel sounds Integumentary: warm and dry Neurologic: other (cerebral palsy, non verbal ) Psychiatric: other (non verbal ) - Lab 04/22/18 05:57 04/23/18 07:40 Most recent lab results Calcium 8.4 mg/dL (8.4-10.2) 04/23/18 07:40 Phosphorus 3.40 mg/dL (2.5-4.5) 04/22/18 05:57 Urine Creatinine 110.1 mg/dL (0.1-20.0) H 04/19/18 16:00 Urine Sodium 74 mmol/L 04/19/18 16:00 Urine Total Protein 46 mg/dL (5-11.8) H 04/19/18 16:00 - Imaging Chest x-ray: report reviewed - Allied health notes Allied health notes reviewed: nursing Medications & Allergies - Medications Allergies/Adverse Reactions: Allergies No Known Allergies Allergy (Unverified 04/14/18 12:46) Home Medications: Home Medications Medication Instructions Recorded Confirmed Last Taken Type Benazepril HCl [Lotensin] 10 mg PO DAILY 04/14/18 04/14/18 Unknown History Lactulose [Constulose] 2.5 tsp PO BID 04/14/18 04/14/18 Unknown History Metoprolol Tartrate 100 mg PO DAILY 04/14/18 04/14/18 Unknown History PHENobarbital [Phenobarbital] 2.5 tsp PO BID 04/14/18 04/14/18 Unknown History Active Medications: Generic Name Dose Route Start Last Admin Trade Name Freq PRN Reason Stop Dose Admin Acetaminophen 650 mg 04/15/18 01:05 04/24/18 04:52 Tylenol FEEDTUBE 650 mg Q4H PRN Administration Fever >101 Lipase/Protease/Amylase 1 each 04/15/18 10:[address] 10,500 Unit FEEDTUBE PRN PRN For Clogged Feeding Tube Clonidine HCl 0.1 mg 04/23/18 14:52 04/24/18 12:47 Catapres PO Not Given Q12HR MARLEEN Cefepime HCl 2 gm in 100 mls @ 200 mls/hr 04/20/18 13:00 04/24/18 12:00 Maxipime/Ns 2 Gm/100 Ml IV 200 mls/hr Q24HR MARLEEN Administration Protocol Sodium Chloride 1,000 mls @ 50 mls/hr 04/23/18 15:00 04/23/18 16:29 Nacl 0.45% 1000 Ml IV 50 mls/hr DIRECT MARLEEN Administration Lactulose 2.5 gm 04/16/18 08:47 Cephulac PO BID PRN Constipation Metoprolol Tartrate 100 mg 04/15/18 10:00 04/24/18 11:58 Lopressor PO 100 mg DAILY MARLEEN Administration Phenobarbital 50 mg 04/14/18 22:00 04/24/18 12:09 Phenobarbital PO 50 mg BID MARLEEN Administration Scopolamine 1 each 04/15/18 09:00 04/24/18 11:57 Transderm-Scop TD 1 each Q3D MARLEEN Administration Simple Syrup 15 ml 04/15/18 10:31 Simple Syrup FEEDTUBE PRN PRN Hypoglycemia Simple Syrup 30 ml 04/15/18 10:31 Simple Syrup FEEDTUBE PRN PRN Hypoglycemia Sodium Bicarbonate 325 mg 04/15/18 10:31 Sodium Bicarbonate FEEDTUBE PRN PRN For Clogged Feeding Tube Sodium Chloride 10 ml 04/14/18 22:00 04/24/18 12:00 Sodium Chloride Flush Syringe 10 Ml IV 10 ml BID MARLEEN Administration Sodium Chloride 10 ml 04/14/18 15:41 Sodium Chloride Flush Syringe 10 Ml IV PRN PRN LINE FLUSH
--- NOTE | 2018-04-24 15:05 | Progress Note ---
Assessment and Plan / Sepsis admitted with Sepsis Protocol: Currently on cefepime and flagyl Continue IMCU care, IVF resuscitation, monitor uop q shift, Blood cultures, URINE culture so far with no growth. Throat culture- NEGATIVE Leukocytosis improving AJIT negative for vegiation Unknown source at this time but Possible aspiration pneumonia considering on admission patient noted for oropharyngeal congestion and gurgling prior to admission, hence, continued treatment for aspiration. Repeat CT chest/abdomen/pelvis showed b/l UL consolidation and RUQ US showed gall stone, dilated CBD but no obstruction - ordered HIDA scan today ID consulted. continue abx per them. wait for further recommendation / Respiratory failure-acute on chronic with hypoxia cont Supplemental oxygen, nebulizer therapy, NIPPV as NEEDED. Possible Aspiration related. Patients mom, states that the patient gets some oral fed intermittently, has infrequent nausea with vomiting. Scopolamine due to secretion management / Pulmonary vascular congestion - could be from renal failure? -Echo noted- EF 55-60 / ZAIRE secondary to vasomotor nephropathy vs Acute kidney injury acute tubular necrosis vs acute tubulointerstitial nephritis -Consulted [employer] - was briefly hypotensive and had high vancomycin level -Continue IV fluids, off vanc, Cr improving / Metabolic Acidosis due to renal failure s/p Bicarb iv x 1 /Hyponatremia syndrome, resolved IVF resuscitation therapy, monitor uop q shift, repeat bmp, / Mental Retardation secondary To CP Continue supportive care / Hypokalemia Replace as needed /Complete Immobility due to frailty patient is non mobile and bed bound due to chronic medical condition - cerebral palsy. /DVT prophylaxis SCD to BLE while in bed. Discussed with nursings staff and mother. Brief history: 43 YO Male with HTN, Seizure Disorder, Cerebal Palsy presents to ED for evaluation by EMS for shortness of breath and felt like he was having fever, and just "didnt look right".. Pt is lethargic and nonverbal at baseline and unable to provide history. Pt history taken from mother. EMS notified, and upon arrival the patient was found to have respiratory distress, with excess oral secretions in his oral pharynx. Pt transported to [facility] for further care. Pt seen and evaluated in ED and found to have Sepsis, as well as Acute Respiratory Failure. Pt admitted to IMCU and initiated on sepsis protocol. Primary care physician is Dr. Scott. * Although Clinically improving, his o2 requirements is down to nasal cannula without any further increase in wob, he is still with intermittent low grade fever. * Discontinued Lasix, and started on fluids with some improvement in renal function * Nephrology following, avoid all nephrotoxic meds, possible vanc toxicity, Omar is now trending down * ordered CT of abdomen pelvis and RUQ US for persistent fevers and leukocytosis CXR: 04/16/17 : 1. Mild prominence of the bronchopulmonary markings; DDX includes mild noncardiogenic pulmonary congestion, bronchitis, and developing bronchopneumonia in the appropriate clinical setting. Clinical correlation is advised. 2. Bone Increased opacity in the right lung base with elevation of the right h emidiaphragm in keeping with basilar atelectasis and/or small pleural effusion; cannot rule out a pneumonic infiltrate in the appropriate clinical setting. Recommend clinical correlation and appropriate followup evaluation as clinically warranted. Atalectasis: on chest xray. Started on CHEST PHYSIOTHERAPY. Also teach mother how to perform this on discharge. Hospitalist Physical - Physical exam Narrative exam: General appearance: Present: mild distress - EENT Eyes: Present: no congestion or icterus ENT: no ear discharge, clear oral mucosa - Neck Neck: Present: supple, normal ROM - Respiratory Respiratory effort: normal Respiratory: bilateral: diminished, crackles - Cardiovascular Rhythm: other Regular with intermittent tachycardia Heart Sounds: Present: S1 & S2. Absent: rub, click - Extremities Extremities: pulses symmetrical, Trace Edema Bilateral upper ext. - Abdominal General gastrointestinal: Present: soft, non-tender, non-distended, normal bowel sounds Male genitourinary: Present: normal - Integumentary Integumentary: Present: clear, warm, dry - Musculoskeletal Musculoskeletal: generalized weakness, contracted - Psychiatric Psychiatric: no appropriate mood/affect, no intact judgment & insight, no memory intact - Neurologic Neurologic: contracted, aphasic Subjective Date of service: 04/24/18 Principal diagnosis: acute kidney injury Interval history: Patient seen and examined, remains on nasal cannula, afebrile, breathing remains stable, tolerating TF discussed with mother at bedside Objective - Constitutional Vitals: Vital Signs - 12hr 04/24/18 04/24/18 04/24/18 03:10 04:00 05:00 Temperature 99.2 F Pulse Rate 111 H 112 H Pulse Rate [ 96 H From Monitor] Respiratory 21 31 H Rate Blood Pressure 119/63 138/90 O2 Sat by Pulse 99 99 Oximetry 04/24/18 04/24/18 04/24/18 06:00 07:00 08:00 Temperature 99.0 F Pulse Rate 102 H 100 H Pulse Rate [ From Monitor] Respiratory 24 25 H 27 H Rate Blood Pressure 145/94 146/96 150/95 O2 Sat by Pulse 99 98 88 Oximetry 04/24/18 04/24/18 04/24/18 08:46 09:01 10:00 Temperature Pulse Rate 93 H 98 H Pulse Rate [ From Monitor] Respiratory 19 28 H Rate Blood Pressure 153/90 151/100 O2 Sat by Pulse 98 95 98 Oximetry 04/24/18 04/24/18 04/24/18 11:01 11:58 12:00 Temperature 98.4 F Pulse Rate 94 H 89 87 Pulse Rate [ From Monitor] Respiratory 29 H 24 Rate Blood Pressure 147/94 147/94 136/82 O2 Sat by Pulse 98 Oximetry 04/24/18 13:00 Temperature Pulse Rate 75 Pulse Rate [ From Monitor] Respiratory 26 H Rate Blood Pressure 134/72 O2 Sat by Pulse 96 Oximetry - Labs CBC & Chem 7: 04/25/18 05:08 04/25/18 05:08
[2018-04-24 17:58] LABS: Basophils # (Auto) 0.1 K/mm3 (0.0-0.1); Basophils % (Auto) 0.6 % (0.0-1.8); Eosinophils # (Auto) 0.5 K/mm3 (0.0-0.4); Eosinophils % (Auto) 3.2 % (0.0-4.3); Hematocrit 30.8 % (35.5-45.6); Hemoglobin 10.4 gm/dl (11.8-15.2); Lymphocytes # (Auto) 1.5 K/mm3 (1.2-5.4); Lymphocytes % (Auto) 10.8 % (13.4-35.0); Mean Corpuscular HGB Conc 34 % (32-34); Mean Corpuscular Volume 83 fl (84-94); Monocytes # (Auto) 1.2 K/mm3 (0.0-0.8); Monocytes % (Auto) 8.9 % (0.0-7.3); Platelet Count 311 K/mm3 (140-440); Red Blood Count 3.72 M/mm3 (3.65-5.03); Red Cell Distribution Width 14.1 % (13.2-15.2)
[2018-04-25 06:12] LABS: Basophils # (Auto) 0.1 K/mm3 (0.0-0.1); Basophils % (Auto) 0.7 % (0.0-1.8); Eosinophils # (Auto) 0.4 K/mm3 (0.0-0.4); Hematocrit 32.4 % (35.5-45.6); Hemoglobin 10.8 gm/dl (11.8-15.2); Lymphocytes # (Auto) 1.6 K/mm3 (1.2-5.4); Lymphocytes % (Auto) 12.2 % (13.4-35.0); Mean Corpuscular HGB Conc 33 % (32-34); Mean Corpuscular Volume 83 fl (84-94); Monocytes # (Auto) 1.1 K/mm3 (0.0-0.8); Monocytes % (Auto) 8.3 % (0.0-7.3); Platelet Count 328 K/mm3 (140-440); Red Blood Count 3.89 M/mm3 (3.65-5.03); Red Cell Distribution Width 14.5 % (13.2-15.2)
[2018-04-25 06:40] LABS: BUN/Creatinine Ratio 22; Blood Urea Nitrogen 29 mg/dL (9-20); Calcium 8.3 mg/dL (8.4-10.2); Hemolysis Index 14
--- NOTE | 2018-04-25 07:49 | Nuclear Medicine Report ---
NUCLEAR MEDICINE HEPATOBILIARY SCAN WITHOUT CCK HISTORY: Evaluate for cholecystitis. Persistent leukocytosis and fever of unknown origin. FINDINGS: Correlation is made with recent ultrasound right upper quadrant and CT abdomen pelvis performed 04/21/18. The gallbladder was contracted and contained multiple large gallstones on both studies. No findings to suggest acute cholecystitis on ultrasound or CT. HIDA scan demonstrates normal uptake and excretion of the radiotracer by the liver parenchyma. The central biliary ducts, common bile duct and proximal small bowel loops are adequately visualized at the appropriate time. No gallbladder activity is identified at one hour. IMPRESSION: Nonvisualization of the gallbladder on HIDA scan. The gallbladder is contracted and contains multiple large gallstones on ultrasound and CT. Low suspicion of acute cholecystitis on ultrasound and CT. HIDA scan is suggestive of chronic cholecystitis.
--- NOTE | 2018-04-25 08:01 | Progress Note ---
Assessment and Plan - Patient Problems (1) Acute kidney failure Current Visit: Yes Status: Acute Plan to address problem: Overall renal function continues to improve since admission, possibly ATN vs AIN given increased vanc trough levels. He has increased LE and UE swelling and edema, therefore we discontinued his standing IVF at the present time, especially given his higher blood pressure readings. Will monitor renal function daily. It shows improvement this am. (2) Electrolyte abnormality Current Visit: Yes Status: Acute Plan to address problem: His overall electrolyte abnormalities have improved. Will continue to monitor. (3) Sepsis Current Visit: Yes Status: Acute Qualifiers: Sepsis type: sepsis due to unspecified organism Qualified Code(s): A41.9 - Sepsis, unspecified organism Plan to address problem: Unclear etiology, possible underlying PNA. Antibiotic coverage per ID recommendations, to be dosed appropriately for his decreased renal clearance. s/p HIDA scan yesterday with findings noted. (4) Leukocytosis Current Visit: Yes Status: Acute Qualifiers: Leukocytosis type: unspecified Qualified Code(s): D72.829 - Elevated white blood cell count, unspecified Plan to address problem: Infectious disease workup noted, s/p HIDA scan. Levels are stable. (5) Seizure disorder Current Visit: Yes Status: Acute Plan to address problem: Favor to continue current regimen, No acute issues since admission, further management per primary team attending. Subjective Date of service: 04/25/18 Principal diagnosis: acute kidney injury Interval history: No acute changes overnight. IVF were discontinued given worsening peripheral edema. Hemodynamically stable and renal function improving back to his baseline. s/p HIDA suggestive of chronic cholecystitis Objective - Vital Signs Vital signs: Vital Signs - 12hr 04/24/18 04/24/18 04/24/18 20:00 20:01 21:01 Temperature 100.2 F H Pulse Rate 114 H 116 H Respiratory 32 H 31 H Rate Blood Pressure 149/94 149/94 O2 Sat by Pulse 95 95 Oximetry 04/24/18 04/24/18 04/24/18 21:07 21:53 22:00 Temperature Pulse Rate 116 H 113 H Respiratory 30 H Rate Blood Pressure 149/94 O2 Sat by Pulse 95 98 Oximetry 04/24/18 04/24/18 04/24/18 22:01 22:14 23:01 Temperature Pulse Rate 116 H 112 H 103 H Respiratory 38 H 39 H Rate Blood Pressure 149/94 149/94 149/94 O2 Sat by Pulse 98 96 Oximetry 04/25/18 04/25/18 04/25/18 00:00 00:01 01:01 Temperature 100.7 F H Pulse Rate 111 H 111 H Respiratory 34 H 25 H Rate Blood Pressure 149/94 149/94 O2 Sat by Pulse 99 99 Oximetry 04/25/18 02:01 Temperature Pulse Rate 109 H Respiratory 33 H Rate Blood Pressure 149/94 O2 Sat by Pulse 100 Oximetry - General Appearance General appearance: chronically ill EENT: ATNC Neck: no JVD Respiratory: Present: Clear to Ascultation Cardiology: regular, S1S2 Gastrointestinal: normal, normoactive bowel sounds Integumentary: warm and dry Neurologic: other (cerebral palsy, non communicative/non-verbal ) Musculoskeletal: other (+edema ) - Lab 04/25/18 05:08 04/25/18 05:08 Most recent lab results Calcium 8.3 mg/dL (8.4-10.2) L 04/25/18 05:08 Phosphorus 3.40 mg/dL (2.5-4.5) 04/22/18 05:57 Urine Creatinine 110.1 mg/dL (0.1-20.0) H 04/19/18 16:00 Urine Sodium 74 mmol/L 04/19/18 16:00 Urine Total Protein 46 mg/dL (5-11.8) H 04/19/18 16:00 - Allied health notes Allied health notes reviewed: nursing Medications & Allergies - Medications Allergies/Adverse Reactions: Allergies No Known Allergies Allergy (Unverified 04/14/18 12:46) Home Medications: Home Medications Medication Instructions Recorded Confirmed Last Taken Type Benazepril HCl [Lotensin] 10 mg PO DAILY 04/14/18 04/14/18 Unknown History Lactulose [Constulose] 2.5 tsp PO BID 04/14/18 04/14/18 Unknown History Metoprolol Tartrate 100 mg PO DAILY 04/14/18 04/14/18 Unknown History PHENobarbital [Phenobarbital] 2.5 tsp PO BID 04/14/18 04/14/18 Unknown History Active Medications: Generic Name Dose Route Start Last Admin Trade Name Freq PRN Reason Stop Dose Admin Acetaminophen 650 mg 04/15/18 01:05 04/24/18 22:13 Tylenol FEEDTUBE 650 mg Q4H PRN Administration Fever >101 Lipase/Protease/Amylase 1 each 04/15/18 10:31 Pancrelexi Chavez 10,500 Unit FEEDTUBE PRN PRN For Clogged Feeding Tube Clonidine HCl 0.1 mg 04/23/18 14:52 04/24/18 22:14 Catapres PO 0.1 mg Q12HR MARLEEN Administration Cefepime HCl 2 gm in 100 mls @ 200 mls/hr 04/20/18 13:00 04/24/18 12:00 Maxipime/Ns 2 Gm/100 Ml IV 200 mls/hr Q24HR MARLEEN Administration Protocol Lactulose 2.5 gm 04/16/18 08:47 Cephulac PO BID PRN Constipation Metoprolol Tartrate 100 mg 04/15/18 10:00 04/24/18 11:58 Lopressor PO 100 mg DAILY MARLEEN Administration Phenobarbital 50 mg 04/14/18 22:00 04/24/18 22:26 Phenobarbital PO 50 mg BID MARLEEN Administration Scopolamine 1 each 04/15/18 09:00 04/24/18 11:57 Transderm-Scop TD 1 each Q3D MARLEEN Administration Simple Syrup 15 ml 04/15/18 10:31 Simple Syrup FEEDTUBE PRN PRN Hypoglycemia Simple Syrup 30 ml 04/15/18 10:31 Simple Syrup FEEDTUBE PRN PRN Hypoglycemia Sodium Bicarbonate 325 mg 04/15/18 10:31 Sodium Bicarbonate FEEDTUBE PRN PRN For Clogged Feeding Tube Sodium Chloride 10 ml 04/14/18 22:00 04/24/18 22:16 Sodium Chloride Flush Syringe 10 Ml IV 10 ml BID MARLEEN Administration Sodium Chloride 10 ml 04/14/18 15:41 Sodium Chloride Flush Syringe 10 Ml IV PRN PRN LINE FLUSH
[2018-04-25] MEDS: CATAPRES PO SCH ×2 (10:28→22:59)
[2018-04-25] MEDS: LOPRESSOR PO SCH (10:29)
[2018-04-25] MEDS: MAXIPIME/NS 2 GM/100 ML 2 GM/100 ML BAG IV SCH (10:29)
[2018-04-25] MEDS: SODIUM CHLORIDE FLUSH SYRINGE 10 ML IV SCH ×2 (10:30→23:00)
--- NOTE | 2018-04-25 11:31 | Progress Note ---
Assessment and Plan Assessment and Plan Cultures: 04/14/18 Blood: no growth to date 04/14/18 Urine; no growth to date 03/17/18 Group A Strep Positive 04/17/18: Blood: no growth to date A/P: 43-year-old male with a past medical history of of HTN, Seizure disorder, CP, admitted with: 1, Sepsis on Admission: Persistent low grade fever; multifocal pneumonia, UTI, ? cholecystitis -Repeat CXR 04/16/18: DDX includes mild noncardiogenic pulmonary congestion, bronchitis, and developing bronchopneumonia in the appropriate clinical setting. -TTE no valvular vegetation -Influenza Rapid- negative -US showed Gallbladder is filled with gallstones. Common bile duct is mildly dilated with no visualized evidence for obstruction is seen. -UA 04/17 c/w UTI -CT showed pulmonary consolidation in the upper lobes bilaterally and right lower lobe. Atelectasis versus infiltrates. This appears to be slightly decreased compared with a previous chest CT dated April 19, 2017. Also mild stranding of the perivesicular fat which can be seen with cystitis, small collections of air in the right renal pelvis. Gallstones within the gallbladder. Scoliosis with retained hardware in the thoracic and lumbar spine, dysplastic appearance of the hip joints bilaterally and degenerative change of the right SI joint. -HIDA Scan - The gallbladder is contracted and contains multiple large gallstones on ultrasound and CT. HIDA scan is suggestive of chronic cholecystitis. 2. Acute Hypoxemic Respiratory Failure etiology volume overload vs aspiration. Chest Xray shows Mild cardiomegaly and pulmonary venous congestion.,Currently on 03/13L NC. 3. Mental Retardation secondary to CP: 4. ZAIRE: better Plan: - Continue Cefepime 2gms every 24 hours, D8 - Continue Flagyl 500mg IV every 8 hours, D12 - monitor fever -surgery consult Adina Desai NP [facility] M: [phone] O:[phone] Subjective Date of service: 04/25/18 Principal diagnosis: acute kidney injury Interval history: patient seen and examined. Alert, no acute distress observed. Mother at bedside. Objective - Exam Narrative Exam: Constitutional: Awake, alert. CP No acute distress Head, Ears, Nose: Normocephalic, atraumatic. External ears, nose normal Eyes: Conjunctivae/corneas clear. No icterus. No ptosis. Neck: Supple, no meningeal signs Oral: dentition poor. no thrush . + macroglossia Cardiovascular: S1, S2 normal. Respiratory: scattered rhonchi, 02/2L nc GI: Soft, non-tender; bowel sounds normal. No peritoneal signs Musculoskeletal: No pedal edema, no cyanosis., + hand contractures Skin: No rash or abscess. Hem/Lymphatic: No palpable cervical or supraclavicular nodes. No lymphangitis Psych: CP Neurological: CP, - Constitutional Vitals: Vital Signs Temp Pulse Resp BP Pulse Ox 99.8 F H 111 H 31 H 149/94 99 04/25/18 08:00 04/25/18 10:29 04/25/18 08:01 04/25/18 10:29 04/25/18 08:01 Temperature -Last 24 Hours Temperature 99.8 F Temperature 99.2 F Temperature 100.7 F Temperature 100.2 F Temperature 98.8 F Temperature 98.4 F - Labs CBC & Chem 7: 04/25/18 05:08 04/25/18 05:08 Labs: Abnormal lab results 04/24/18 04/25/18 04/25/18 Range/Units 17:43 05:08 05:08 WBC 14.1 H 13.4 H (4.5-11.0) K/mm3 Hgb 10.4 L 10.8 L (11.8-15.2) gm/dl Hct 30.8 L 32.4 L (35.5-45.6) % MCV 83 L 83 L (84-94) fl Lymph % (Auto) 10.8 L 12.2 L (13.4-35.0) % Wetzel % (Auto) 8.9 H 8.3 H (0.0-7.3) % Wetzel # 1.2 H 1.1 H (0.0-0.8) K/mm3 Eos # 0.5 H (0.0-0.4) K/mm3 Seg Neutrophils % 76.5 H 75.8 H (40.0-70.0) % Seg Neutrophils # 10.8 H 10.2 H (1.8-7.7) K/mm3 BUN 29 H (9-20) mg/dL Glucose 102 H (75-100) mg/dL Calcium 8.3 L (8.4-10.2) mg/dL
--- NOTE | 2018-04-25 12:13 | Progress Note ---
Assessment and Plan / Sepsis admitted with Sepsis Protocol: Currently on cefepime and flagyl Continue IMCU care, IVF resuscitation, monitor uop q shift, Blood cultures, URINE culture so far with no growth. Throat culture- NEGATIVE Leukocytosis improving AJIT negative for vegiation Unknown source at this time but Possible aspiration pneumonia considering on admission patient noted for oropharyngeal congestion and gurgling prior to admission, hence, continued treatment for aspiration. Repeat CT chest/abdomen/pelvis showed b/l UL consolidation and RUQ US showed gall stone, dilated CBD but no obstruction - s/p HIDA scan which showed- The gallbladder is contracted and contains multiple large gallstones on ultrasound and CT. HIDA scan is suggestive of chronic cholecystitis. Discussed with GS and pt does not require surgery at this time ID consulted. continue abx per them. wait for further recommendation / Respiratory failure-acute on chronic with hypoxia cont Supplemental oxygen, nebulizer therapy, NIPPV as NEEDED. Possible Aspiration related. Patients mom, states that the patient gets some oral fed intermittently, has infrequent nausea with vomiting. Scopolamine due to secretion management / Pulmonary vascular congestion - could be from renal failure? -Echo noted- EF 55-60 / ZAIRE secondary to vasomotor nephropathy vs Acute kidney injury acute tubular necrosis vs acute tubulointerstitial nephritis -Consulted Hand Packager - was briefly hypotensive and had high vancomycin level -Continue IV fluids, off vanc, Cr improving / Metabolic Acidosis due to renal failure s/p Bicarb iv x 1 /Hyponatremia syndrome, resolved IVF resuscitation therapy, monitor uop q shift, repeat bmp, / Mental Retardation secondary To CP Continue supportive care / Hypokalemia Replace as needed /Complete Immobility due to frailty patient is non mobile and bed bound due to chronic medical condition - cerebral palsy. /DVT prophylaxis SCD to BLE while in bed. Discussed with nursings staff and mother. Brief history: 43 YO Male with HTN, Seizure Disorder, Cerebal Palsy presents to ED for evaluation by EMS for shortness of breath and felt like he was having fever, and just "didnt look right".. Pt is lethargic and nonverbal at baseline and unable to provide history. Pt history taken from mother. EMS notified, and upon arrival the patient was found to have respiratory distress, with excess oral secretions in his oral pharynx. Pt transported to [facility] for further care. Pt seen and evaluated in ED and found to have Sepsis, as well as Acute Respiratory Failure. Pt admitted to [facility] and initiated on sepsis protocol. Primary care physician is Dr. Scott. * Although Clinically improving, his o2 requirements is down to nasal cannula without any further increase in wob, he is still with intermittent low grade fever. * Discontinued Lasix, and started on fluids with some improvement in renal function * Nephrology following, avoid all nephrotoxic meds, possible vanc toxicity, Creatninie is now trending down * ordered CT of abdomen pelvis and RUQ US for persistent fevers and leukocytosis CXR: 04/16/17 : 1. Mild prominence of the bronchopulmonary markings; DDX includes mild noncardiogenic pulmonary congestion, bronchitis, and developing bronchopneumonia in the appropriate clinical setting. Clinical correlation is advised. 2. Bone Increased opacity in the right lung base with elevation of the right hemidiaphragm in keeping with basilar atelectasis and/or small pleural effusion; cannot rule out a pneumonic infiltrate in the appropriate clinical setting. Recommend clinical correlation and appropriate followup evaluation as clinically warranted. Atalectasis: on chest xray. Started on CHEST PHYSIOTHERAPY. Also teach mother how to perform this on discharge. Hospitalist Physical - Physical exam Narrative exam: General appearance: Present: mild distress - EENT Eyes: Present: no congestion or icterus ENT: no ear discharge, clear oral mucosa - Neck Neck: Present: supple, normal ROM - Respiratory Respiratory effort: normal Respiratory: bilateral: diminished, crackles - Cardiovascular Rhythm: other Regular with intermittent tachycardia Heart Sounds: Present: S1 & S2. Absent: rub, click - Extremities Extremities: pulses symmetrical, Trace Edema Bilateral upper ext. - Abdominal General gastrointestinal: Present: soft, non-tender, non-distended, normal bowel sounds Male genitourinary: Present: normal - Integumentary Integumentary: Present: clear, warm, dry - Musculoskeletal Musculoskeletal: generalized weakness, contracted - Psychiatric Psychiatric: no appropriate mood/affect, no intact judgment & insight, no memory intact - Neurologic Neurologic: contracted, aphasic Subjective Date of service: 04/25/18 Principal diagnosis: acute kidney injury Interval history: Patient seen and examined, remains on nasal cannula, afebrile, breathing remains stable, tolerating TF discussed with mother at bedside Objective - Constitutional Vitals: Vital Signs - 12hr 04/25/18 04/25/18 04/25/18 01:01 02:01 03:00 Temperature Pulse Rate 111 H 109 H 118 H Respiratory 25 H 33 H 29 H Rate Blood Pressure 149/94 149/94 149/94 O2 Sat by Pulse 99 100 98 Oximetry 04/25/18 04/25/18 04/25/18 04:00 04:01 05:01 Temperature 99.2 F Pulse Rate 116 H 114 H Respiratory 26 H Rate Blood Pressure 149/94 149/94 O2 Sat by Pulse 99 99 Oximetry 04/25/18 04/25/18 04/25/18 06:01 07:01 08:00 Temperature 99.8 F H Pulse Rate 113 H 113 H Respiratory 20 28 H Rate Blood Pressure 149/94 149/94 O2 Sat by Pulse 99 98 Oximetry 04/25/18 04/25/18 04/25/18 08:01 10:28 10:29 Temperature Pulse Rate 112 H 111 H 111 H Respiratory 31 H Rate Blood Pressure 149/94 149/94 149/94 O2 Sat by Pulse 99 Oximetry - Labs CBC & Chem 7: 04/25/18 05:08 04/25/18 05:08 Labs: Abnormal lab results 04/24/18 04/25/18 04/25/18 Range/Units 17:43 05:08 05:08 WBC 14.1 H 13.4 H (4.5-11.0) K/mm3 Hgb 10.4 L 10.8 L (11.8-15.2) gm/dl Hct 30.8 L 32.4 L (35.5-45.6) % MCV 83 L 83 L (84-94) fl Lymph % (Auto) 10.8 L 12.2 L (13.4-35.0) % Mcclain % (Auto) 8.9 H 8.3 H (0.0-7.3) % Mcclain # 1.2 H 1.1 H (0.0-0.8) K/mm3 Eos # 0.5 H (0.0-0.4) K/mm3 Seg Neutrophils % 76.5 H 75.8 H (40.0-70.0) % Seg Neutrophils # 10.8 H 10.2 H (1.8-7.7) K/mm3 BUN 29 H (9-20) mg/dL Glucose 102 H (75-100) mg/dL Calcium 8.3 L (8.4-10.2) mg/dL
--- NOTE | 2018-04-25 16:05 | Consultation ---
History of Present Illness Consult date: 04/25/18 Reason for consult: other (fever w/u) Requesting physician: SARAH DIXON Chief complaint: FUO - History of present illness History of present illness: 43yo M with multiple medical problems including CP and MR presented with respiratory failure and sepsis. Workup has been in progress for fever. We are asked to see the patient due to a report of possible chronic cholecystitis on recent imaging studies. Pt has been tolerating tube feeds. Pt unable to participate in history. Info obtained from chart and attending physician. Past History Past Medical History: hypertension, seizures, other (CP cerebral palsy, profound mental Retadran) Past Surgical History: No surgical history, Other (reviewed, but continuous endoscopic gastrostomy tube placement of a surgery for scoliosis, surgeon on- call) Social history: single, lives with family (with mother, sister and niece). denies: smoking, alcohol abuse, prescription drug abuse, IV drug use Family history: diabetes (mother, hypertension), hypertension (father and mother and brothers and sisters) Medications and Allergies Allergies Allergy/AdvReac Type Severity Reaction Status Date / Time No Known Allergies Allergy Unverified 04/14/18 12:46 Home Medications Medication Instructions Recorded Confirmed Last Taken Type Benazepril HCl [Lotensin] 10 mg PO DAILY 04/14/18 04/14/18 Unknown History Lactulose [Constulose] 2.5 tsp PO BID 04/14/18 04/14/18 Unknown History Metoprolol Tartrate 100 mg PO DAILY 04/14/18 04/14/18 Unknown History PHENobarbital [Phenobarbital] 2.5 tsp PO BID 04/14/18 04/14/18 Unknown History Active Meds: Active Medications Acetaminophen (Tylenol) 650 mg FEEDTUBE Q4H PRN PRN Reason: Fever >101 Last Admin: 04/24/18 22:13 Dose: 650 mg Documented by: Lipase/Protease/Amylase (Konrad Chavez 10,500 Unit) 1 each FEEDTUBE PRN PRN PRN Reason: For Clogged Feeding Tube Clonidine HCl (Catapres) 0.1 mg PO Q12HR MARLEEN Last Admin: 04/25/18 10:28 Dose: 0.1 mg Documented by: Cefepime HCl (Maxipime/Ns 2 Gm/100 Ml) 2 gm in 100 mls @ 200 mls/hr IV Q24HR MARLEEN; Protocol Last Admin: 04/25/18 10:29 Dose: 200 mls/hr Documented by: Lactulose (Cephulac) 2.5 gm PO BID PRN PRN Reason: Constipation Metoprolol Tartrate (Lopressor) 100 mg PO DAILY [facility] Last Admin: 04/25/18 10:29 Dose: 100 mg Documented by: Phenobarbital (Phenobarbital) 50 mg PO BID [facility] Last Admin: 04/25/18 10:42 Dose: 50 mg Documented by: Scopolamine (Transderm-Scop) 1 each TD Q3D [facility] Last Admin: 04/24/18 11:57 Dose: 1 each Documented by: Simple Syrup (Simple Syrup) 15 ml FEEDTUBE PRN PRN PRN Reason: Hypoglycemia Simple Syrup (Simple Syrup) 30 ml FEEDTUBE PRN PRN PRN Reason: Hypoglycemia Sodium Bicarbonate (Sodium Bicarbonate) 325 mg FEEDTUBE PRN PRN PRN Reason: For Clogged Feeding Tube Sodium Chloride (Sodium Chloride Flush Syringe 10 Ml) 10 ml IV BID [facility] Last Admin: 04/25/18 10:30 Dose: 10 ml Documented by: Sodium Chloride (Sodium Chloride Flush Syringe 10 Ml) 10 ml IV PRN PRN PRN Reason: LINE FLUSH Review of Systems ROS unobtainable: due to mental status Exam Vital Signs Pulse Ox 92 04/14/18 12:30 - General physical appearance Positive: no distress, no pain, other (unable to interact) - Respiratory Positive: normal expansion, normal respiratory effort - Abdomen Abdomen: Present: soft, surgical scars (in upper midline - well healed.), other (THOMAS feeding tube in place. ). Absent: tender (difficult to assess in him. ), distended (but protuberant), guarding, rigid - Integumentary no rash, no growths, no abnormal pigmentation Results - Labs 04/25/18 05:08 04/25/18 05:08 Abnormal lab results 04/24/18 04/25/18 04/25/18 Range/Units 17:43 05:08 05:08 WBC 14.1 H 13.4 H (4.5-11.0) K/mm3 Hgb 10.4 L 10.8 L (11.8-15.2) gm/dl Hct 30.8 L 32.4 L (35.5-45.6) % MCV 83 L 83 L (84-94) fl Lymph % (Auto) 10.8 L 12.2 L (13.4-35.0) % Jenkins % (Auto) 8.9 H 8.3 H (0.0-7.3) % Jenkins # 1.2 H 1.1 H (0.0-0.8) K/mm3 Eos # 0.5 H (0.0-0.4) K/mm3 Seg Neutrophils % 76.5 H 75.8 H (40.0-70.0) % Seg Neutrophils # 10.8 H 10.2 H (1.8-7.7) K/mm3 BUN 29 H (9-20) mg/dL Glucose 102 H (75-100) mg/dL Calcium 8.3 L (8.4-10.2) mg/dL Diabetes panel 04/25/18 Range/Units 05:08 Sodium 144 (137-145) mmol/L Potassium 4.3 (3.6-5.0) mmol/L Chloride 105.6 (98-107) mmol/L Carbon Dioxide 30 (22-30) mmol/L BUN 29 H (9-20) mg/dL Creatinine 1.3 (0.8-1.5) mg/dL Glucose 102 H (75-100) mg/dL Calcium 8.3 L (8.4-10.2) mg/dL Calcium panel 04/25/18 Range/Units 05:08 Calcium 8.3 L (8.4-10.2) mg/dL Pituitary panel 04/25/18 Range/Units 05:08 Sodium 144 (137-145) mmol/L Potassium 4.3 (3.6-5.0) mmol/L Chloride 105.6 (98-107) mmol/L Carbon Dioxide 30 (22-30) mmol/L BUN 29 H (9-20) mg/dL Creatinine 1.3 (0.8-1.5) mg/dL Glucose 102 H (75-100) mg/dL Calcium 8.3 L (8.4-10.2) mg/dL Adrenal panel 04/25/18 Range/Units 05:08 Sodium 144 (137-145) mmol/L Potassium 4.3 (3.6-5.0) mmol/L Chloride 105.6 (98-107) mmol/L Carbon Dioxide 30 (22-30) mmol/L BUN 29 H (9-20) mg/dL Creatinine 1.3 (0.8-1.5) mg/dL Glucose 102 H (75-100) mg/dL Calcium 8.3 L (8.4-10.2) mg/dL - Imaging CT scan - abdomen: report reviewed, image reviewed CT scan - pelvis: report reviewed, image reviewed US - abdomen: report reviewed, image reviewed Additional studies: HIDA scan - reviewed report Assessment and Plan - Patient Problems (1) Leukocytosis Current Visit: Yes Status: Acute Qualifiers: Leukocytosis type: unspecified Qualified Code(s): D72.829 - Elevated white blood cell count, unspecified Plan to address problem: Pt stable. The gallbladder images and most recent LFT's are unimpressive. If the patient does have chronic cholecystitis, it would not cause fevers or leukocytosis. At this time, would not recommend cholecystectomy. If one day, he has trouble with feeding intolerance, N/V, and/or RUQ pain, then we can reconsider the option of cholecystectomy. Please call with questions. Discussed case with Dr. Dixon. Time=30min
[2018-04-25] MEDS: TYLENOL FEEDTUBE PRN (22:57)
--- NOTE | 2018-04-26 09:20 | Progress Note ---
Assessment and Plan - Patient Problems (1) Acute kidney failure Current Visit: Yes Status: Acute Plan to address problem: Overall renal function continues to improve since admission, possibly ATN vs AIN given increased vanc trough levels. He has increased LE and UE swelling and edema, therefore we discontinued his standing IVF at the present time, especially given his higher blood pressure readings. Will monitor renal function daily. (2) Electrolyte abnormality Current Visit: Yes Status: Acute Plan to address problem: His overall electrolyte abnormalities have improved. Will continue to monitor. (3) Sepsis Current Visit: Yes Status: Acute Qualifiers: Sepsis type: sepsis due to unspecified organism Qualified Code(s): A41.9 - Sepsis, unspecified organism Plan to address problem: Unclear etiology, possible underlying PNA. Antibiotic coverage per ID recommendations, to be dosed appropriately for his decreased renal clearance. s/p HIDA scan with findings noted of chronic cholecystitis. Per surgery note, there is no interventions planned at this time. (4) Leukocytosis Current Visit: Yes Status: Acute Qualifiers: Leukocytosis type: unspecified Qualified Code(s): D72.829 - Elevated white blood cell count, unspecified Plan to address problem: Infectious disease workup noted, s/p HIDA scan. Levels are stable. (5) Seizure disorder Current Visit: Yes Status: Acute Plan to address problem: Favor to continue current regimen, No acute issues since admission, further management per primary team attending. Subjective Date of service: 04/26/18 Principal diagnosis: acute kidney injury Interval history: No acute changes overnight. Surgery evaluation reviewed and per note, no surgery or further intervention is planned at this time. Objective - Vital Signs Vital signs: Vital Signs - 12hr 04/25/18 04/25/18 04/25/18 21:50 22:00 22:42 Temperature Pulse Rate 112 H 114 H Respiratory 34 H 30 H Rate Blood Pressure 149/94 149/94 O2 Sat by Pulse 97 97 97 Oximetry 04/25/18 04/25/18 04/26/18 22:59 23:00 00:00 Temperature 100.3 F H Pulse Rate 111 H 111 H 104 H Respiratory 35 H 31 H Rate Blood Pressure 149/94 149/94 159/99 O2 Sat by Pulse 96 99 Oximetry 04/26/18 04/26/18 04/26/18 01:00 02:00 03:00 Temperature Pulse Rate 109 H 110 H 110 H Respiratory 36 H 32 H 62 H Rate Blood Pressure 159/99 159/99 159/99 O2 Sat by Pulse 98 99 99 Oximetry 04/26/18 04/26/18 04/26/18 04:00 05:00 06:00 Temperature 100.0 F H Pulse Rate 100 H 111 H 111 H Respiratory 25 H 21 39 H Rate Blood Pressure 159/99 159/99 159/99 O2 Sat by Pulse 100 98 97 Oximetry 04/26/18 07:00 Temperature Pulse Rate 96 H Respiratory 33 H Rate Blood Pressure 159/99 O2 Sat by Pulse 96 Oximetry - General Appearance General appearance: appears stated age, chronically ill, frail EENT: ATNC Neck: no JVD Respiratory: Present: Clear to Ascultation Cardiology: regular, S1S2 Gastrointestinal: normal Integumentary: warm and dry Neurologic: other (cerebral palsy, non verbal) Musculoskeletal: other (+edema ) - Lab 04/25/18 05:08 04/25/18 05:08 Most recent lab results Calcium 8.3 mg/dL (8.4-10.2) L 04/25/18 05:08 Phosphorus 3.40 mg/dL (2.5-4.5) 04/22/18 05:57 Urine Creatinine 110.1 mg/dL (0.1-20.0) H 04/19/18 16:00 Urine Sodium 74 mmol/L 04/19/18 16:00 Urine Total Protein 46 mg/dL (5-11.8) H 04/19/18 16:00 - Allied health notes Allied health notes reviewed: nursing Medications & Allergies - Medications Allergies/Adverse Reactions: Allergies No Known Allergies Allergy (Unverified 04/14/18 12:46) Home Medications: Home Medications Medication Instructions Recorded Confirmed Last Taken Type Benazepril HCl [Lotensin] 10 mg PO DAILY 04/14/18 04/14/18 Unknown History Lactulose [Constulose] 2.5 tsp PO BID 04/14/18 04/14/18 Unknown History Metoprolol Tartrate 100 mg PO DAILY 04/14/18 04/14/18 Unknown History PHENobarbital [Phenobarbital] 2.5 tsp PO BID 04/14/18 04/14/18 Unknown History Active Medications: Generic Name Dose Route Start Last Admin Trade Name Freq PRN Reason Stop Dose Admin Acetaminophen 650 mg 04/15/18 01:05 04/25/18 22:57 Tylenol FEEDTUBE 650 mg Q4H PRN Administration Fever >101 Lipase/Protease/Amylase 1 each 04/15/18 10:31 Pancreaze 10,500 Unit FEEDTUBE PRN PRN For Clogged Feeding Tube Clonidine HCl 0.1 mg 04/23/18 14:52 04/25/18 22:59 Catapres PO 0.1 mg Q12HR MARLEEN Administration Cefepime HCl 2 gm in 100 mls @ 200 mls/hr 04/20/18 13:00 04/25/18 10:29 Maxipime/Ns 2 Gm/100 Ml IV 200 mls/hr Q24HR MARLEEN Administration Protocol Lactulose 2.5 gm 04/16/18 08:47 Cephulac PO BID PRN Constipation Metoprolol Tartrate 100 mg 04/15/18 10:00 04/25/18 10:29 Lopressor PO 100 mg DAILY MARLEEN Administration Phenobarbital 50 mg 04/14/18 22:00 04/25/18 23:38 Phenobarbital PO 50 mg BID MARLEEN Administration Scopolamine 1 each 04/15/18 09:00 04/24/18 11:57 Transderm-Scop TD 1 each Q3D MARLEEN Administration Simple Syrup 15 ml 04/15/18 10:31 Simple Syrup FEEDTUBE PRN PRN Hypoglycemia Simple Syrup 30 ml 04/15/18 10:31 Simple Syrup FEEDTUBE PRN PRN Hypoglycemia Sodium Bicarbonate 325 mg 04/15/18 10:31 Sodium Bicarbonate FEEDTUBE PRN PRN For Clogged Feeding Tube Sodium Chloride 10 ml 04/14/18 22:00 04/25/18 23:00 Sodium Chloride Flush Syringe 10 Ml IV 10 ml BID MARLEEN Administration Sodium Chloride 10 ml 04/14/18 15:41 Sodium Chloride Flush Syringe 10 Ml IV PRN PRN LINE FLUSH
[2018-04-26] MEDS: MAXIPIME/NS 2 GM/100 ML 2 GM/100 ML BAG IV SCH (10:58)
[2018-04-26] MEDS: LOPRESSOR PO SCH (10:58)
[2018-04-26] MEDS: CATAPRES PO SCH ×2 (10:58→23:37)
[2018-04-26] MEDS: SODIUM CHLORIDE FLUSH SYRINGE 10 ML IV SCH ×2 (11:00→22:00)
--- NOTE | 2018-04-26 11:01 | Progress Note ---
Assessment and Plan Assessment and Plan Cultures: 04/14/18 Blood: no growth to date 04/14/18 Urine; no growth to date 03/17/18 Group A Strep Positive 04/17/18: Blood: no growth to date A/P: 43-year-old male with a past medical history of of HTN, Seizure disorder, CP, admitted with: 1, Sepsis on Admission: Persistent low grade fever; multifocal pneumonia, UTI, ? cholecystitis -Repeat CXR 04/16/18: DDX includes mild noncardiogenic pulmonary congestion, bronchitis, and developing bronchopneumonia in the appropriate clinical setting. -TTE no valvular vegetation -Influenza Rapid- negative -US showed Gallbladder is filled with gallstones. Common bile duct is mildly dilated with no visualized evidence for obstruction is seen. -UA 04/17 c/w UTI -CT showed pulmonary consolidation in the upper lobes bilaterally and right lower lobe. Atelectasis versus infiltrates. This appears to be slightly decreased compared with a previous chest CT dated April 19, 2017. Also mild stranding of the perivesicular fat which can be seen with cystitis, small collections of air in the right renal pelvis. Gallstones within the gallbladder. Scoliosis with retained hardware in the thoracic and lumbar spine, dysplastic appearance of the hip joints bilaterally and degenerative change of the right SI joint. -HIDA Scan - The gallbladder is contracted and contains multiple large gallstones on ultrasound and CT. HIDA scan is suggestive of chronic cholecystitis- -GS consulted, chronic cholecystitis not source of persistent low grade fever and leukocytosis, likely chronic aspiration. Surgery not recommended at this time. 2. Acute Hypoxemic Respiratory Failure etiology volume overload vs aspiration. Chest Xray shows Mild cardiomegaly and pulmonary venous congestion.,Currently on 03/13L [place]. 3. Mental Retardation secondary to CP: 4. ZAIRE: better Plan: - Continue Cefepime 2gms every 24 hours, D9 - Continue Flagyl 500mg IV every 8 hours, D13 - Continue to monitor fever and WBC - Anticipate discharge on Augmentin suspension 875mg PO BID for 7 days [employer] M: [phone] O:[phone] Subjective Date of service: 04/26/18 Principal diagnosis: acute kidney injury Interval history: patient seen and examined. Alert, no acute distress observed. Family not a bedside. Objective - Exam Narrative Exam: Constitutional: Awake, alert. CP No acute distress Head, Ears, Nose: Normocephalic, atraumatic. External ears, nose normal Eyes: Conjunctivae/corneas clear. No icterus. No ptosis. Neck: Supple, no meningeal signs Oral: dentition poor. no thrush . + macroglossia Cardiovascular: S1, S2 normal. Respiratory: scattered rhonchi, 02/2L nc GI: Soft, non-tender; bowel sounds normal. No peritoneal signs Musculoskeletal: No pedal edema, no cyanosis., + hand contractures Skin: No rash or abscess. Hem/Lymphatic: No palpable cervical or supraclavicular nodes. No lymphangitis Psych: CP Neurological: CP, - Constitutional Vitals: Vital Signs Temp Pulse Resp BP Pulse Ox 100.0 F H 109 H 33 H 159/99 96 04/26/18 04:00 04/26/18 10:58 04/26/18 07:00 04/26/18 10:58 04/26/18 07:00 Temperature -Last 24 Hours Temperature 100.0 F Temperature 100.3 F Temperature 101.0 F Temperature 98.8 F Temperature 100.9 F - Labs CBC & Chem 7: 04/25/18 05:08 04/25/18 05:08
--- NOTE | 2018-04-26 12:33 | Progress Note ---
Assessment and Plan / Sepsis admitted with Sepsis Protocol: IMCU care, IVF resuscitation, monitor uop q shift, NOw pt at [facility] Unknown source at this time but Possible aspiration pneumonia considering on admission patient noted for oropharyngeal congestion and gurgling prior to admission, hence, continued treatment for aspiration. Blood cultures, URINE culture so far with no growth. Throat culture- NEGATIVE Leukocytosis improving AJIT negative for vegiation Repeat CT chest/abdomen/pelvis showed b/l UL consolidation and RUQ US showed gall stone, dilated CBD but no obstruction - s/p HIDA scan which showed- The gallbladder is contracted and contains multiple large gallstones on ultrasound and CT. HIDA scan is suggestive of chronic cholecystitis. Discussed with GS and pt does not require surgery at this time ID consulted. continue abx per them. Anticipate discharge on Augmentin suspension 875mg PO BID for 7 days / Respiratory failure-acute on chronic with hypoxia cont Supplemental oxygen, nebulizer therapy, NIPPV as NEEDED. Possible Aspiration related. Patients mom, states that the patient gets some oral fed intermittently, has infrequent nausea with vomiting. Scopolamine due to secretion management / Pulmonary vascular congestion - could be from renal failure? -Echo noted- EF 55-60 / ZAIRE secondary to vasomotor nephropathy vs Acute kidney injury acute tubular necrosis vs acute tubulo interstitial nephritis -Consulted [employer] - was briefly hypotensive and had high vancomycin level -Continue IV fluids, off vanc, Cr improving / Metabolic Acidosis due to renal failure s/p Bicarb iv x 1 /Hyponatremia syndrome, resolved IVF resuscitation therapy, monitor uop q shift, repeat bmp, / Mental Retardation secondary To CP Continue supportive care / Hypokalemia Replace as needed /Complete Immobility due to frailty patient is non mobile and bed bound due to chronic medical condition - cerebral palsy. /DVT prophylaxis SCD to BLE while in bed. Discussed with nursings staff and mother. Brief history: 43 YO Male with HTN, Seizure Disorder, Cerebal Palsy presents to ED for evaluation by EMS for shortness of breath and felt like he was having fever, and just "didnt look right".. Pt is lethargic and nonverbal at baseline and unable to provide history. Pt history taken from mother. EMS notified, and upon arrival the patient was found to have respiratory distress, with excess oral secretions in his oral pharynx. Pt transported to [facility] for further care. Pt seen and evaluated in ED and found to have Sepsis, as well as Acute Respiratory Failure. Pt admitted to IMCU and initiated on sepsis protocol. Primary care physician is Dr. Scott. * Although Clinically improving, his o2 requirements is down to nasal cannula without any further increase in wob, he is still with intermittent low grade fever. * Discontinued Lasix, and started on fluids with improvement in renal function * Nephrology following, avoid all nephrotoxic meds, possible vanc toxicity, Creatninie is now trending down * ordered CT of abdomen pelvis and RUQ US, HIDA scan for persistent fevers and l eukocytosis, showed no cute process, and possible chronic cholecystisis - no surgery needed at this time * will need Augmentin suspension 875mg PO BID for 7 days * Family wants Home with hospice, CM notified CXR: 04/16/17 : 1. Mild prominence of the bronchopulmonary markings; DDX includes mild noncardiogenic pulmonary congestion, bronchitis, and developing bronchopneumonia in the appropriate clinical setting. Clinical correlation is advised. 2. Bone Increased opacity in the right lung base with elevation of the right hemidiaphragm in keeping with basilar atelectasis and/or small pleural effusion; cannot rule out a pneumonic infiltrate in the appropriate clinical setting. Recommend clinical correlation and appropriate followup evaluation as clinically warranted. Atalectasis: on chest xray. Started on CHEST PHYSIOTHERAPY. Also teach mother how to perform this on discharge. Hospitalist Physical - Physical exam Narrative exam: General appearance: Present: no distress - EENT Eyes: Present: no congestion or icterus ENT: no ear discharge, clear oral mucosa - Neck Neck: Present: supple, normal ROM - Respiratory Respiratory effort: normal Respiratory: bilateral: diminished, crackles - Cardiovascular Rhythm: other Regular with intermittent tachycardia Heart Sounds: Present: S1 & S2. Absent: rub, click - Extremities Extremities: pulses symmetrical, Trace Edema Bilateral upper ext. - Abdominal General gastrointestinal: Present: soft, non-tender, non-distended, normal bowel sounds Male genitourinary: Present: normal - Integumentary Integumentary: Present: clear, warm, dry - Musculoskeletal Musculoskeletal: generalized weakness, contracted - Psychiatric Psychiatric: no appropriate mood/affect, no intact judgment & insight, no memory intact - Neurologic Neurologic: contracted, aphasic Subjective Date of service: 04/26/18 Principal diagnosis: acute kidney injury Interval history: Patient seen and examined, remains on nasal cannula, afebrile, breathing remains stable, tolerating TF discussed with mother/and father at bedside Objective - Constitutional Vitals: Vital Signs - 12hr 04/26/18 04/26/18 04/26/18 01:00 02:00 03:00 Temperature Pulse Rate 109 H 110 H 110 H Respiratory 36 H 32 H 62 H Rate Blood Pressure 159/99 159/99 159/99 O2 Sat by Pulse 98 99 99 Oximetry 04/26/18 04/26/18 04/26/18 04:00 05:00 06:00 Temperature 100.0 F H Pulse Rate 100 H 111 H 111 H Respiratory 25 H 21 39 H Rate Blood Pressure 159/99 159/99 159/99 O2 Sat by Pulse 100 98 97 Oximetry 04/26/18 04/26/18 07:00 10:58 Temperature Pulse Rate 96 H 108 H Respiratory 33 H Rate Blood Pressure 159/99 159/99 O2 Sat by Pulse 96 Oximetry - Labs CBC & Chem 7: 04/25/18 05:08 04/25/18 05:08
[2018-04-26] MEDS: TYLENOL FEEDTUBE PRN (23:43)
--- NOTE | 2018-04-27 10:08 | Progress Note ---
Assessment and Plan Assessment and Plan Cultures: 04/14/18 Blood: no growth to date 04/14/18 Urine; no growth to date 03/17/18 Group A Strep Positive 04/17/18: Blood: no growth to date A/P: 43-year-old male with a past medical history of of HTN, Seizure disorder, CP, admitted with: 1, Sepsis on Admission: Fevers and leukocytosis improving, etiology most likely multifocal pneumonia vs chronic aspiration. -Repeat CXR 04/16/18: DDX includes mild noncardiogenic pulmonary congestion, bronchitis, and developing bronchopneumonia in the appropriate clinical setting. -TTE no valvular vegetation -Influenza Rapid- negative -US showed Gallbladder is filled with gallstones. Common bile duct is mildly dilated with no visualized evidence for obstruction is seen. -UA 04/17 c/w UTI -CT showed pulmonary consolidation in the upper lobes bilaterally and right lower lobe. Atelectasis versus infiltrates. This appears to be slightly decreased compared with a previous chest CT dated April 19, 2017. Also mild stranding of the perivesicular fat which can be seen with cystitis, small collections of air in the right renal pelvis. Gallstones within the gallbladder. Scoliosis with retained hardware in the thoracic and lumbar spine, dysplastic appearance of the hip joints bilaterally and degenerative change of the right SI joint. -HIDA Scan - The gallbladder is contracted and contains multiple large gallstones on ultrasound and CT. HIDA scan is suggestive of chronic cholecystitis- -GS consulted, chronic cholecystitis not source of persistent low grade fever and leukocytosis, likely chronic aspiration. Surgery not recommended at this time. 2. Acute Hypoxemic Respiratory Failure etiology volume overload vs aspiration. Chest Xray shows Mild cardiomegaly and pulmonary venous congestion.,Currently on 03/13L [place]. 3. Mental Retardation secondary to CP: 4. ZAIRE: better Plan: - discontinue Cefepime 2gms every 24 hours, D10 - disontinue Flagyl 500mg IV every 8 hours, D14 - Continue to monitor fever and WBC - start Augmentin suspension 875mg PO BID for total 7 days -CBC ordered for tomorrow [employer] M: [phone] O:[phone] Subjective Date of service: 04/27/18 Principal diagnosis: acute kidney injury Objective - Constitutional Vitals: Vital Signs Temp Pulse Resp BP Pulse Ox 98.5 F 103 H 18 143/98 99 04/27/18 04:37 04/27/18 04:37 04/27/18 04:37 04/27/18 04:37 04/27/18 08:56 Temperature -Last 24 Hours Temperature 98.5 F Temperature 98.9 F Temperature 99.7 F Temperature 98.1 F Temperature 99.4 F - Labs CBC & Chem 7: 04/25/18 05:08 04/25/18 05:08
[2018-04-27] MEDS: TYLENOL FEEDTUBE PRN (10:11)
[2018-04-27] MEDS: CATAPRES PO SCH ×2 (10:12→22:58)
[2018-04-27] MEDS: LOPRESSOR PO SCH ×2 (10:13→22:57)
[2018-04-27] MEDS: TRANSDERM-SCOP TD SCH (10:13)
--- NOTE | 2018-04-27 10:34 | Progress Note ---
Assessment and Plan - Patient Problems (1) Acute kidney failure Current Visit: Yes Status: Acute Plan to address problem: Overall renal function continues to improve since admission, possibly ATN vs AIN given increased vanc trough levels. He has increased LE and UE swelling and edema, therefore we have discontinued his standing IVF Will monitor renal function daily. (2) Electrolyte abnormality Current Visit: Yes Status: Acute Plan to address problem: His overall electrolyte abnormalities have improved. Will continue to monitor. (3) Sepsis Current Visit: Yes Status: Acute Qualifiers: Sepsis type: sepsis due to unspecified organism Qualified Code(s): A41.9 - Sepsis, unspecified organism Plan to address problem: Unclear etiology, possible underlying PNA. Antibiotic coverage per ID recommendations, to be dosed appropriately for his decreased renal clearance. s/p HIDA scan with findings noted of chronic cholecystitis. Per surgery note, there is no interventions planned at this time. (4) Leukocytosis Current Visit: Yes Status: Acute Qualifiers: Leukocytosis type: unspecified Qualified Code(s): D72.829 - Elevated white blood cell count, unspecified Plan to address problem: Infectious disease workup noted, s/p HIDA scan. Levels are stable. (5) Seizure disorder Current Visit: Yes Status: Acute Plan to address problem: Favor to continue current regimen, No acute issues since admission, further management per primary team attending. Subjective Date of service: 04/27/18 Principal diagnosis: acute kidney injury Interval history: No acute issues this morning. No new labs this am. Transferred from [facility]. Objective - Vital Signs Vital signs: Vital Signs - 12hr 04/26/18 04/26/18 04/27/18 23:06 23:37 04:37 Temperature 98.9 F 98.5 F Pulse Rate 110 H 80 103 H Respiratory 20 18 Rate Blood Pressure 129/81 136/78 143/98 O2 Sat by Pulse 98 100 Oximetry 04/27/18 04/27/18 04/27/18 08:56 10:12 10:13 Temperature Pulse Rate 113 H 113 H Respiratory Rate Blood Pressure 168/110 168/110 O2 Sat by Pulse 99 Oximetry - General Appearance General appearance: obese, chronically ill EENT: ATNC Neck: no JVD Respiratory: Present: Clear to Ascultation Cardiology: regular, S1S2 Gastrointestinal: normal Integumentary: no rash, warm and dry Neurologic: other (cerbral palsy) Musculoskeletal: other (right hand swelling noted ) - Lab 04/25/18 05:08 04/25/18 05:08 Most recent lab results Calcium 8.3 mg/dL (8.4-10.2) L 04/25/18 05:08 Phosphorus 3.40 mg/dL (2.5-4.5) 04/22/18 05:57 Urine Creatinine 110.1 mg/dL (0.1-20.0) H 04/19/18 16:00 Urine Sodium 74 mmol/L 04/19/18 16:00 Urine Total Protein 46 mg/dL (5-11.8) H 04/19/18 16:00 - Allied health notes Allied health notes reviewed: nursing Medications & Allergies - Medications Allergies/Adverse Reactions: Allergies No Known Allergies Allergy (Unverified 04/14/18 12:46) Home Medications: Home Medications Medication Instructions Recorded Confirmed Last Taken Type Benazepril HCl [Lotensin] 10 mg PO DAILY 04/14/18 04/14/18 Unknown History Lactulose [Constulose] 2.5 tsp PO BID 04/14/18 04/14/18 Unknown History Metoprolol Tartrate 100 mg PO DAILY 04/14/18 04/14/18 Unknown History PHENobarbital [Phenobarbital] 2.5 tsp PO BID 04/14/18 04/14/18 Unknown History Active Medications: Generic Name Dose Route Start Last Admin Trade Name Freq PRN Reason Stop Dose Admin Acetaminophen 650 mg 04/15/18 01:05 04/27/18 10:11 Tylenol FEEDTUBE 650 mg Q4H PRN Administration Fever >101 Lipase/Protease/Amylase 1 each 04/15/18 10:[address] 10,500 Unit FEEDTUBE PRN PRN For Clogged Feeding Tube Clonidine HCl 0.1 mg 04/23/18 14:52 04/27/18 10:12 Catapres PO 0.1 mg Q12HR MARLEEN Administration Lactulose 2.5 gm 04/16/18 08:47 Cephulac PO BID PRN Constipation Metoprolol Tartrate 100 mg 04/27/18 10:00 04/27/18 10:13 Lopressor PO 100 mg BID MARLEEN Administration Phenobarbital 50 mg 04/14/18 22:00 04/27/18 10:14 Phenobarbital PO 50 mg BID MARLEEN Administration Scopolamine 1 each 04/15/18 09:00 04/27/18 10:13 Transderm-Scop TD 1 each Q3D MARLEEN Administration Simple Syrup 15 ml 04/15/18 10:31 Simple Syrup FEEDTUBE PRN PRN Hypoglycemia Simple Syrup 30 ml 04/15/18 10:31 Simple Syrup FEEDTUBE PRN PRN Hypoglycemia Sodium Bicarbonate 325 mg 04/15/18 10:31 Sodium Bicarbonate FEEDTUBE PRN PRN For Clogged Feeding Tube Sodium Chloride 10 ml 04/14/18 22:00 04/26/18 22:00 Sodium Chloride Flush Syringe 10 Ml IV 10 ml BID MARLEEN Administration Sodium Chloride 10 ml 04/14/18 15:41 Sodium Chloride Flush Syringe 10 Ml IV PRN PRN LINE FLUSH
--- NOTE | 2018-04-27 13:36 | Event Note ---
Date: 04/27/18 I was asked by the hospitalist, Dr. Harrison, to speak with the patient's father (Aurelio Mendoza). I just called him and spoke with him. His main concern had to do with expectations on the fever when they go home. Concerns about swelling in his son's hand. I explained that I was asked to see the patient on the history of the gallbladder and whether it was contributing to his fever. I explained the test results that we had both laboratory and radiographic. I explained the findings and the usual history that goes with chronic cholecystitis. He understands that I do not feel the fever is related to the gallbladder and therefore recommended that we not do a gallbladder surgery. I acknowledged that his question about the fever is a good one and directed him towards the hospitalist and infectious disease doctor to get more information about where they go from here as to the fever. He was appreciative of the time.
[2018-04-27] MEDS: SODIUM CHLORIDE FLUSH SYRINGE 10 ML IV SCH ×2 (14:08→23:03)
[2018-04-27] MEDS ORDERED: AUGMENTIN ORAL LIQD PO SCH (15:00)
[2018-04-27 16:44] LABS: Hematocrit 29.3 % (35.5-45.6); Hemoglobin 10.2 gm/dl (11.8-15.2); Mean Corpuscular HGB Conc 35 % (32-34); Mean Corpuscular Volume 83 fl (84-94); Platelet Count 406 K/mm3 (140-440); Red Blood Count 3.54 M/mm3 (3.65-5.03); Red Cell Distribution Width 14.2 % (13.2-15.2)
[2018-04-27 16:59] LABS: BUN/Creatinine Ratio 29; Blood Urea Nitrogen 23 mg/dL (9-20); Calcium 8.5 mg/dL (8.4-10.2); Hemolysis Index 7
[2018-04-27] MEDS ORDERED: AUGMENTIN 875 MG ONE (20:00)
[2018-04-27] MEDS ORDERED: AUGMENTIN 875 MG PO SCH (20:00)
--- NOTE | 2018-04-28 08:09 | Progress Note ---
Assessment and Plan - Patient Problems (1) Acute kidney failure Current Visit: Yes Status: Acute Plan to address problem: Overall renal function continues to improve since admission, possibly ATN vs AIN given increased vanc trough levels. He has increased LE and UE swelling and edema, therefore we have discontinued his standing IVF Will monitor renal function daily. Overall renal function is stable. (2) Hypernatremia Current Visit: Yes Status: Acute Plan to address problem: Would recommend free water flushes with TF, starting at 100 cc q4 hrs and would monitor closely. (3) Sepsis Current Visit: Yes Status: Acute Qualifiers: Sepsis type: sepsis due to unspecified organism Qualified Code(s): A41.9 - Sepsis, unspecified organism Plan to address problem: Unclear etiology, possible underlying PNA. Antibiotic coverage per ID recommendations, to be dosed appropriately for his decreased renal clearance. s/p HIDA scan with findings noted of chronic cholecystitis. Per surgery note, there is no interventions planned at this time. (4) Leukocytosis Current Visit: Yes Status: Acute Qualifiers: Leukocytosis type: unspecified Qualified Code(s): D72.829 - Elevated white blood cell count, unspecified Plan to address problem: Infectious disease workup noted, s/p HIDA scan. Levels are stable. (5) Seizure disorder Current Visit: Yes Status: Acute Plan to address problem: Favor to continue current regimen, No acute issues since admission, further management per primary team attending. Subjective Date of service: 04/28/18 Principal diagnosis: acute kidney injury Interval history: No acute issues overnight. Labs noted and renal function overall is stable. Objective - Vital Signs Vital signs: Vital Signs - 12hr 04/27/18 04/27/18 04/28/18 22:00 23:20 04:38 Temperature 98.8 F 98.9 F Pulse Rate 109 H 108 H 103 H Respiratory 20 20 18 Rate Blood Pressure 139/88 134/90 O2 Sat by Pulse 96 99 Oximetry - General Appearance General appearance: obese, chronically ill EENT: ATNC Neck: no JVD, no thyromegaly Respiratory: Present: Clear to Ascultation Cardiology: regular, S1S2 Gastrointestinal: normal, normoactive bowel sounds Integumentary: no rash, warm and dry Neurologic: other (cerebral palsy, non-verbal ) Musculoskeletal: other (UE/LE edema ) - Lab 04/27/18 16:26 04/27/18 16:26 Most recent lab results Calcium 8.5 mg/dL (8.4-10.2) 04/27/18 16:26 Phosphorus 3.40 mg/dL (2.5-4.5) 04/22/18 05:57 Urine Creatinine 110.1 mg/dL (0.1-20.0) H 04/19/18 16:00 Urine Sodium 74 mmol/L 04/19/18 16:00 Urine Total Protein 46 mg/dL (5-11.8) H 04/19/18 16:00 - Allied health notes Allied health notes reviewed: nursing Medications & Allergies - Medications Allergies/Adverse Reactions: Allergies No Known Allergies Allergy (Unverified 04/14/18 12:46) Home Medications: Home Medications Medication Instructions Recorded Confirmed Last Taken Type Benazepril HCl [Lotensin] 10 mg PO DAILY 04/14/18 04/14/18 Unknown History Lactulose [Constulose] 2.5 tsp PO BID 04/14/18 04/14/18 Unknown History Metoprolol Tartrate 100 mg PO DAILY 04/14/18 04/14/18 Unknown History PHENobarbital [Phenobarbital] 2.5 tsp PO BID 04/14/18 04/14/18 Unknown History Active Medications: Generic Name Dose Route Start Last Admin Trade Name Freq PRN Reason Stop Dose Admin Acetaminophen 650 mg 04/15/18 01:05 04/27/18 10:11 Tylenol FEEDTUBE 650 mg Q4H PRN Administration Fever >101 Amoxicillin/Clavulanate Potassium 875 each 04/27/18 20:00 04/27/18 23:02 Augmentin 875 Mg PO 875 each Q12HR MARLEEN Administration Lipase/Protease/Amylase 1 each 04/15/18 10:31 Pancreaze 10,500 Unit FEEDTUBE PRN PRN For Clogged Feeding Tube Clonidine HCl 0.1 mg 04/23/18 14:52 04/27/18 22:58 Catapres PO 0.1 mg Q12HR MARLEEN Administration Lactulose 2.5 gm 04/16/18 08:47 Cephulac PO BID PRN Constipation Metoprolol Tartrate 100 mg 04/27/18 10:00 04/27/18 22:57 Lopressor PO 100 mg BID MARLEEN Administration Phenobarbital 50 mg 04/14/18 22:00 04/27/18 23:57 Phenobarbital PO Not Given BID MARLEEN Phenobarbital 45 mg 04/27/18 22:00 04/28/18 02:12 Phenobarbital PO 04/28/18 10:01 45 mg BID MARLEEN Administration Scopolamine 1 each 04/15/18 09:00 04/27/18 10:13 Transderm-Scop TD 1 each Q3D MARLEEN Administration Simple Syrup 15 ml 04/15/18 10:31 Simple Syrup FEEDTUBE PRN PRN Hypoglycemia Simple Syrup 30 ml 04/15/18 10:31 Simple Syrup FEEDTUBE PRN PRN Hypoglycemia Sodium Bicarbonate 325 mg 04/15/18 10:31 Sodium Bicarbonate FEEDTUBE PRN PRN For Clogged Feeding Tube Sodium Chloride 10 ml 04/14/18 22:00 04/27/18 23:03 Sodium Chloride Flush Syringe 10 Ml IV 10 ml BID MARLEEN Administration Sodium Chloride 10 ml 04/14/18 15:41 Sodium Chloride Flush Syringe 10 Ml IV PRN PRN LINE FLUSH
--- NOTE | 2018-04-28 09:56 | Progress Note ---
Assessment and Plan Assessment and Plan Cultures: 04/14/18 Blood: no growth to date 04/14/18 Urine; no growth to date 03/17/18 Group A Strep Positive 04/17/18: Blood: no growth to date A/P: 43-year-old male with a past medical history of of HTN, Seizure disorder, CP, admitted with: 1, Sepsis on Admission: Continued leukocytosis, no fever in > 48 hours, etiology most likely multifocal pneumonia vs chronic aspiration. -Repeat CXR 04/16/18: DDX includes mild noncardiogenic pulmonary congestion, bronchitis, and developing bronchopneumonia in the appropriate clinical setting. -TTE no valvular vegetation -Influenza Rapid- negative -US showed Gallbladder is filled with gallstones. Common bile duct is mildly dilated with no visualized evidence for obstruction is seen. -UA 04/17 c/w UTI -CT showed pulmonary consolidation in the upper lobes bilaterally and right lower lobe. Atelectasis versus infiltrates. This appears to be slightly decreased compared with a previous chest CT dated April 19, 2017. Also mild stranding of the perivesicular fat which can be seen with cystitis, small collec tions of air in the right renal pelvis. Gallstones within the gallbladder. Scoliosis with retained hardware in the thoracic and lumbar spine, dysplastic appearance of the hip joints bilaterally and degenerative change of the right SI joint. -HIDA Scan - The gallbladder is contracted and contains multiple large gallstones on ultrasound and CT. HIDA scan is suggestive of chronic cholecystitis- -GS consulted, chronic cholecystitis not source of persistent low grade f ever and leukocytosis, likely chronic aspiration. Surgery not recommended at this time. 2. Acute Hypoxemic Respiratory Failure etiology volume overload vs aspiration. Chest Xray shows Mild cardiomegaly and pulmonary venous congestion.,Currently on 4L NC. 3. Mental Retardation secondary to CP: 4. ZAIRE: better Plan: - Continue to monitor fever and WBC - Continue Augmentin suspension 875mg via G tube BID for total 7 days, D2 of D7 Dr. Serrano will be application design engineer this weekend, , please call for questions. [employer] M: [phone] O:[phone] Subjective Date of service: 04/28/18 Principal diagnosis: acute kidney injury Interval history: patient seen and examined. Alert, no acute distress observed. Family at bedside. Objective - Exam Narrative Exam: Constitutional: Awake, alert. CP No acute distress Head, Ears, Nose: Normocephalic, atraumatic. External ears, nose normal Eyes: Conjunctivae/corneas clear. No icterus. No ptosis. Neck: Supple, no meningeal signs Oral: dentition poor. no thrush . + macroglossia Cardiovascular: S1, S2 normal. Respiratory: scattered rhonchi, 02/2L nc GI: Soft, non-tender; bowel sounds normal. No peritoneal signs Musculoskeletal: No pedal edema, no cyanosis., + hand contractures Skin: No rash or abscess. Hem/Lymphatic: No palpable cervical or supraclavicular nodes. No lymphangitis Psych: CP Neurological: CP, - Constitutional Vitals: Vital Signs Temp Pulse Resp BP Pulse Ox 98.9 F 103 H 18 134/90 99 04/28/18 04:38 04/28/18 04:38 04/28/18 04:38 04/28/18 04:38 04/28/18 09:13 Temperature -Last 24 Hours Temperature 98.9 F Temperature 98.8 F Temperature 99.2 F Temperature 99.3 F - Labs CBC & Chem 7: 04/27/18 16:26 04/27/18 16:26 Labs: Abnormal lab results 04/27/18 04/27/18 Range/Units 16:26 16:26 WBC 13.8 H (4.5-11.0) K/mm3 RBC 3.54 L (3.65-5.03) M/mm3 Hgb 10.2 L (11.8-15.2) gm/dl Hct 29.3 L (35.5-45.6) % MCV 83 L (84-94) fl MCHC 35 H (32-34) % Sodium 147 H (137-145) mmol/L Carbon Dioxide 35 H (22-30) mmol/L BUN 23 H (9-20) mg/dL Glucose 106 H (75-100) mg/dL
[2018-04-28] MEDS: LOPRESSOR PO SCH (10:56)
[2018-04-28] MEDS: CATAPRES PO SCH (10:57)
[2018-04-28] MEDS ORDERED: AUGMENTIN 875 MG ONE (11:00)
[2018-04-28] MEDS: SODIUM CHLORIDE FLUSH SYRINGE 10 ML IV SCH (11:00)
[2018-04-28] MEDS ORDERED: AUGMENTIN 875 MG PO SCH (11:00)
--- NOTE | 2018-04-28 11:19 | Progress Note ---
Assessment and Plan / Sepsis admitted with Sepsis Protocol: IMCU care, IVF resuscitation, monitor uop q shift, NOw pt at [facility] Unknown source at this time but Possible aspiration pneumonia considering on admission patient noted for oropharyngeal congestion and gurgling prior to admission, hence, continued treatment for aspiration. Blood cultures, URINE culture so far with no growth. Throat culture- NEGATIVE Leukocytosis improving AJIT negative for vegiation Repeat CT chest/abdomen/pelvis showed b/l UL consolidation and RUQ US showed gall stone, dilated CBD but no obstruction - s/p HIDA scan which showed- The gallbladder is contracted and contains multiple large gallstones on ultrasound and CT. HIDA scan is suggestive of chronic cholecystitis. Discussed with GS and pt does not require surgery at this time ID consulted. continue abx per them. Anticipate discharge on Augmentin suspension 875mg PO BID for 7 days / Respiratory failure-acute on chronic with hypoxia cont Supplemental oxygen, nebulizer therapy, NIPPV as NEEDED. Possible Aspiration related. Patients mom, states that the patient gets some oral fed intermittently, has infrequent nausea with vomiting. Scopolamine due to secretion management /Aspiration PNA, POA - getting treated with abx, ID following - ordered for speech eval / Pulmonary vascular congestion, resolved - could be from renal failure? -Echo noted- EF 55-60 / ZAIRE secondary to vasomotor nephropathy vs Acute kidney injury acute tubular necrosis vs acute tubulo interstitial nephritis -Consulted Inner Layer Scrubber Tender - was briefly hypotensive and had high vancomycin level - also had lasix for pulmonary congestion -Continue IV fluids, off vanc, Cr improving / Metabolic Acidosis due to renal failure s/p Bicarb iv x 1 /Hyponatremia syndrome, resolved IVF resuscitation therapy, monitor uop q shift, repeat bmp, / Mental Retardation secondary To CP Continue supportive care / Hypokalemia Replace as needed /Complete Immobility due to frailty patient is non mobile and bed bound due to chronic medical condition - cerebral palsy. /DVT prophylaxis SCD to BLE while in bed. Disposition: Home with hospice, CM consulted Brief history: 43 YO Male with HTN, Seizure Disorder, Cerebal Palsy presents to ED for eval uation by EMS for shortness of breath and felt like he was having fever, and just "didnt look right".. Pt is lethargic and nonverbal at baseline and unable to provide history. Pt history taken from mother. EMS notified, and upon arrival the patient was found to have respiratory distress, with excess oral secretions in his oral pharynx. Pt transported to [facility] for further care. Pt seen and evaluated in ED and found to have Sepsis, as well as Acute Respiratory Failure. Pt admitted to [facility] and initiated on sepsis protocol. Primary care physician is Dr. Scott. * Although Clinically improving, his o2 requirements is down to nasal cannula without any further increase in wob, he is still with intermittent low grade fever. * Discontinued Lasix, and started on fluids with improvement in renal function * Nephrology following, avoid all nephrotoxic meds, possible vanc toxicity, Creatninie is now trending down * ordered CT of abdomen pelvis and RUQ US, HIDA scan for persistent fevers and leukocytosis, showed no cute process, and possible chronic cholecystisis - no surgery needed at this time * will need Augmentin suspension 875mg PO BID for 7 days * Family wants Home with hospice, CM notified CXR: 04/16/17 : 1. Mild prominence of the bronchopulmonary markings; DDX includes mild noncardiogenic pulmonary congestion, bronchitis, and developing bronchopneumonia in the appropriate clinical setting. Clinical correlation is advised. 2. Bone Increased opacity in the right lung base with elevation of the right hemidiaphragm in keeping with basilar atelectasis and/or small pleural effusion; cannot rule out a pneumonic infiltrate in the appropriate clinical setting. Recommend clinical correlation and appropriate followup evaluation as clinically warranted. Atalectasis: on chest xray. Started on CHEST PHYSIOTHERAPY. Also teach mother how to perform this on discharge. Hospitalist Physical - Physical exam Narrative exam: General appearance: Present: no distress - EENT Eyes: Present: no congestion or icterus ENT: no ear discharge, clear oral mucosa - Neck Neck: Present: supple, normal ROM - Respiratory Respiratory effort: normal Respiratory: bilateral: diminished, crackles - Cardiovascular Rhythm: other Regular with intermittent tachycardia Heart Sounds: Present: S1 & S2. Absent: rub, click - Extremities Extremities: pulses symmetrical, Trace Edema Bilateral upper ext. - Abdominal General gastrointestinal: Present: soft, non-tender, non-distended, normal bowel sounds Male genitourinary: Present: normal - Integumentary Integumentary: Present: clear, warm, dry - Musculoskeletal Musculoskeletal: generalized weakness, contracted - Psychiatric Psychiatric: no appropriate mood/affect, no intact judgment & insight, no memory intact - Neurologic Neurologic: contracted, aphasic Subjective Date of service: 04/27/18 Principal diagnosis: acute kidney injury Interval history: Patient seen and examined, remains on nasal cannula, afebrile, breathing remains stable, tolerating TF discussed with father at bedside- father wants a speech eval before patient leaves the hospital Objective - Constitutional Vitals: Vital Signs - 12hr 04/27/18 04/28/18 04/28/18 23:20 04:38 09:13 Temperature 98.8 F 98.9 F Pulse Rate 108 H 103 H Respiratory 20 18 Rate Blood Pressure 139/88 134/90 O2 Sat by Pulse 96 99 99 Oximetry 04/28/18 04/28/18 10:56 10:57 Temperature Pulse Rate 89 89 Respiratory Rate Blood Pressure 133/92 133/92 O2 Sat by Pulse Oximetry - Labs CBC & Chem 7: 04/27/18 16:26 04/27/18 16:26 Labs: Abnormal lab results 04/27/18 04/27/18 Range/Units 16:26 16:26 WBC 13.8 H (4.5-11.0) K/mm3 RBC 3.54 L (3.65-5.03) M/mm3 Hgb 10.2 L (11.8-15.2) gm/dl Hct 29.3 L (35.5-45.6) % MCV 83 L (84-94) fl MCHC 35 H (32-34) % Sodium 147 H (137-145) mmol/L Carbon Dioxide 35 H (22-30) mmol/L BUN 23 H (9-20) mg/dL Glucose 106 H (75-100) mg/dL
[2018-04-28 12:08] VITALS: BP 145/85
--- NOTE | 2018-04-28 13:42 | Discharge Summary ---
Providers - Providers Date of Admission: 04/14/18 15:41 Date of discharge: 04/28/18 Attending physician: SARAH DIXON 04/15/18 07:34 Consult to Physician [CONS] Routine Comment: Consulting Provider: RADHA AKBAR Physician Instructions: Reason For Exam: sepsis 04/15/18 08:55 Consult to Dietitian/Nutrition [CONS] Routine Physician Instructions: Reason For Exam: Reason for Consult: Write/Manage Tube Feeding 04/16/18 13:38 Consult to PICC Line RN [CONS] Routine Reason For Exam: abx Type Line:: Midline 04/18/18 08:39 Consult to Physician [CONS] Routine Comment: Consulting Provider: EMMANUEL BOOKER Physician Instructions: Reason For Exam: zaire 04/25/18 12:14 Consult to Physician [CONS] Routine Comment: Consulting Provider: THUAN ROSA Physician Instructions: Reason For Exam: fever, chronic cholecystitis 04/27/18 15:10 Speech Therapy Evaluation and Treat [CONS] Routine Reason For Exam: aspiration [facility] Condition: Serious Hospital course: Brief history: 43 YO Male with HTN, Seizure Disorder, Cerebal Palsy presents to ED for evaluation by EMS for shortness of breath and felt like he was having fever, and just "didnt look right".. Pt is lethargic and nonverbal at baseline and unable to provide history. Pt history taken from mother. EMS notified, and upon arrival the patient was found to have respiratory distress, with excess oral secretions in his oral pharynx. Pt transported to [facility] for further care. Pt seen and e valuated in ED and found to have Sepsis, as well as Acute Respiratory Failure. Pt admitted to [facility] and initiated on sepsis protocol. Primary care physician is Dr. Scott. * Although Clinically improving, his o2 requirements is down to nasal cannula without any further increase in work of breathing, he is still with intermittent low grade fever. * Discontinued Lasix, and started on fluids with improvement in renal function * Nephrology following, avoided all nephrotoxic meds, possible vanc toxicity, Creatninie was slowly trending down * ordered CT of abdomen pelvis and RUQ US, HIDA scan for persistent fevers and leukocytosis, showed no cute process, and possible chronic cholecystisis - no surgery needed at this time * will need Augmentin suspension 875mg PO BID for 7 days * Family wanted Home with hospice, CM notified, and arranged for discharge CXR: 04/16/17 : 1. Mild prominence of the bronchopulmonary markings; DDX includes mild noncardiogenic pulmonary congestion, bronchitis, and developing bronchopneumonia in the appropriate clinical setting. Clinical correlation is advised. 2. Bone Increased opacity in the right lung base with elevation of the right hemidia phragm in keeping with basilar atelectasis and/or small pleural effusion; cannot rule out a pneumonic infiltrate in the appropriate clinical setting. Recommend clinical correlation and appropriate followup evaluation as clinically warranted. Discharge diagnosis and management: / Sepsis admitted with Sepsis Protocol: IMCU care, IVF resuscitation, monitor uop q shift, NOw pt at [facility] Unknown source at this time but Possible aspiration pneumonia considering on admission patient noted for oropharyngeal congestion and gurgling prior to admission, hence, continued treatment for aspiration. Blood cultures, URINE culture so far with no growth. Throat culture- NEGATIVE Leukocytosis improving AJIT negative for vegiation Repeat CT chest/abdomen/pelvis showed b/l UL consolidation and RUQ US showed gall stone, dilated CBD but no obstruction - s/p HIDA scan which showed- The gallbladder is contracted and contains multiple large gallstones on ultrasound and CT. HIDA scan is suggestive of chronic cholecystitis. Discussed with GS and pt does not require surgery at this time ID consulted. continued abx per them. Anticipate discharge on Augmentin suspension 875mg PO BID for 7 days / Respiratory failure-acute on chronic with hypoxia cont Supplemental oxygen, nebulizer therapy, NIPPV as NEEDED. Possible Aspiration related. Patients mom, states that the patient gets some oral fed intermittently, has infrequent nausea with vomiting. Scopolamine added due to secretion management. Counseled family not to feed orally as he is high risk for aspiration and to continue TF only. /Aspiration PNA, POA - getting treated with abx, ID following - ordered for speech eval and recommended NPO, patient has no gag reflex, cuca ent was on TF diet / Pulmonary vascular congestion, resolved - could be from renal failure? -Echo noted- EF 55-60 / ZAIRE secondary to vasomotor nephropathy vs Acute kidney injury acute tubular necrosis vs acute tubulo interstitial nephritis -Consulted Grain Picker - was briefly hypotensive and had high vancomycin level - also had lasix for pulmonary congestion -placed on IV fluids, off vanc, Cr was improving / Metabolic Acidosis due to renal failure, stable s/p Bicarb iv x 1 /Hyponatremia syndrome, resolved IVF resuscitation therapy, monitored uop q shift, followed bmp, / Mental Retardation secondary To CP Continued supportive care / Hypokalemia Replaced as needed /Complete Immobility due to frailty patient is non mobile and bed bound due to chronic medical condition - cerebral palsy. /Atalectasis: on chest xray. Started on CHEST PHYSIOTHERAPY. Also showed mother how to perform this on discharge. /DVT prophylaxis SCD to BLE while in bed. Disposition: Home with hospice, CM consulted Hospitalist Physical - Physical exam Narrative exam: General appearance: Present: no distress - EENT Eyes: Present: no congestion or icterus ENT: no ear discharge, clear oral mucosa - Neck Neck: Present: supple, normal ROM - Respiratory Respiratory effort: normal Respiratory: bilateral: diminished, crackles - Cardiovascular Rhythm: other Regular with intermittent tachycardia Heart Sounds: Present: S1 & S2. Absent: rub, click - Extremities Extremities: pulses symmetrical, Trace Edema Bilateral upper ext. - Abdominal General gastrointestinal: Present: soft, non-tender, non-distended, normal bowel sounds Male genitourinary: Present: normal - Integumentary Integumentary: Present: clear, warm, dry - Musculoskeletal Musculoskeletal: generalized weakness, contracted - Psychiatric Psychiatric: no appropriate mood/affect, no intact judgment & insight, no memory intact - Neurologic Neurologic: contracted, aphasic Disposition: DC-50 TO HOSPICE (HOME) Time spent for discharge: 34 minutes Core Measure Documentation - Palliative Care Palliative Care/ Comfort Measures: Hospice Care - Core Measures Any of the following diagnoses?: none Exam - Constitutional Vitals: Temp Pulse Resp BP Pulse Ox 98.1 F 93 H 18 145/85 99 04/28/18 12:07 04/28/18 12:07 04/28/18 12:07 04/28/18 12:07 04/28/18 12:07 Plan Activity: up only with assistance, fall precautions Weight Bearing Status: Non-Weight Bearing Diet: other (Tube feeding diet) Wound: per wound nurse instructions Follow up with: WILLIE PAINTING MD [Primary Care Provider] - 7 Days Prescriptions: Amoxicillin/K Clav Tab [Augmentin 875MG TAB] 1 each PO Q12HR #10 tablet cloNIDine [Catapres] 0.1 mg PO Q12HR #60 tablet Scopolamine [Transderm-Scop] 1 each TD Q3D #14 patch
[2018-04-28] MEDS ORDERED: TRIPLE ANTIBIOTIC TP ONE (14:21)
== END 2018-04-28 18:40 | disposition hospice, home (50) | DRG 871 ==
LOC: ED 12:01 → IMCU 15:41 → 3A 04-26 15:02
PROVIDERS: ADMIT Internal Medicine; ATTEND Internal Medicine
PROC: 4A033R1 Measurement of Arterial Saturation, Peripheral, Percutaneous Approach (ICD-10-PCS; 2018-04-14)
PROC: 06HY33Z Insertion of Infusion Device into Lower Vein, Percutaneous Approach (ICD-10-PCS; 2018-04-14)
PROC: B54BZZA Ultrasonography of Right Lower Extremity Veins, Guidance (ICD-10-PCS; 2018-04-14)
PROC: 06JY3ZZ Inspection of Lower Vein, Percutaneous Approach (ICD-10-PCS; principal; 2018-04-17)
DX: A41.9 Sepsis, unspecified organism (principal); N17.0 Acute kidney failure with tubular necrosis; J69.0 Pneumonitis due to inhalation of food and vomit; R53.2 Functional quadriplegia; J96.21 Acute and chronic respiratory failure with hypoxia; E87.1 Hypo-osmolality and hyponatremia; E87.2 Acidosis; K80.10 Calculus of gallbladder with chronic cholecystitis without obstruction; J98.11 Atelectasis; F79 Unspecified intellectual disabilities; G80.9 Cerebral palsy, unspecified; E87.6 Hypokalemia; M41.9 Scoliosis, unspecified; I10 Essential (primary) hypertension; Z51.5 Encounter for palliative care; G40.909 Epilepsy, unspecified, not intractable, without status epilepticus; Z82.49 Family history of ischemic heart disease and other diseases of the circulatory system; Z83.3 Family history of diabetes mellitus
CPT/HCPCS: 36415; 71045; 71250; 74176; 76705; 76770; 78226; 80048; 80053; 80202; 81001; 82140; 82330; 82570; 82803; 82805; 83880; 84100; 84156; 84300; 84484; 85007; 85025; 85027; 87040; 87086; 87116; 87400; 87430; 89050; 90471; 90686; 93005; 93010; 93306; 94640; 94760; 96365; 96366; 96375; G0378; A6250; A9537; G0008; J0692; J0696; J1940; J1956; J3370; J7030; J7040

== ENCOUNTER 2019-04-10 11:01 | Emergency (ER) | payer MEDICARE ==
--- NOTE | 2019-04-10 11:19 | Emergency Department Report ---
ED Fall HPI - General Stated Complaint: FALL Time Seen by Provider: 04/10/19 11:13 Source: family, EMS, old records reviewed Mode of arrival: Ambulatory Limitations: Other - History of Present Illness Initial Comments: Mr. Mendoza is a 44 yo male with history of hypertension, seizure disorder, cerebral palsy who presents with left leg pain after fall on Tuesday. He is nonverbal. His mother notices that he winces when his left leg is moved. Home health aide at center witnessed patient falling from the chair lift approximately 3 feet from the ground. Mother found him laying on the left side. The fall occurred on Tuesday. Mother also noticed fever 100.7 over the weekend. History of sepsis last year. She has not noticed any cough or shortness of breath. Nonverbal he is dependent on tube feedings. -: days(s) (3) Fall From: wheelchair, chair When Fall Occurred: # days [employer]PERVIS[employer] (3) Fall Witnessed: yes, by living facility s Place Fall Occurred: school Prolonged Down Time?: no Location: other (Left leg pain) Location - Extremities: Left: Leg Severity: mild Context: tripped/slipped - Related Data Home Medications Medication Instructions Recorded Confirmed Last Taken Lactulose [Constulose] 2.5 tsp PO BID 04/14/18 04/14/18 Unknown Metoprolol Tartrate 100 mg PO DAILY 04/14/18 04/14/18 Unknown PHENobarbitaL [Phenobarbital] 2.5 tsp PO BID 04/14/18 04/14/18 Unknown Previous Rx's Medication Instructions Recorded Last Taken Type Amoxicillin/K Clav Tab [Augmentin 1 each PO Q12HR #10 tablet 04/28/18 Unknown Rx 875MG TAB] Scopolamine [Transderm-Scop] 1 each TD Q3D #14 patch 04/28/18 Unknown Rx cloNIDine [Catapres] 0.1 mg PO Q12HR #60 tablet 04/28/18 Unknown Rx Allergies Allergy/AdvReac Type Severity Reaction Status Date / Time No Known Allergies Allergy Unverified 04/14/18 12:46 ED Review of Systems ROS: Stated complaint: FALL Other details as noted in HPI Comment: Unobtainable due to pts medical conditions (Nonverbal status) ED Past Medical Hx - Past Medical History Previous Medical History?: Yes Hx Hypertension: Yes Hx Congestive Heart Failure: No Hx Diabetes: No Hx Deep Vein Thrombosis: No Hx Seizures: Yes Hx Asthma: No Hx COPD: No Additional medical history: Cerebral Palsy - Surgical History Past Surgical History?: Yes Hx Pacemaker: No Hx Internal Defibrillator: No - Social History Smoking Status: Never Smoker - Medications Home Medications: Home Medications Medication Instructions Recorded Confirmed Last Taken Type Lactulose [Constulose] 2.5 tsp PO BID 04/14/18 04/14/18 Unknown History Metoprolol Tartrate 100 mg PO DAILY 04/14/18 04/14/18 Unknown History PHENobarbitaL [Phenobarbital] 2.5 tsp PO BID 04/14/18 04/14/18 Unknown History Amoxicillin/K Clav Tab [Augmentin 1 each PO Q12HR #10 tablet 04/28/18 Unknown Rx 875MG TAB] Scopolamine [Transderm-Scop] 1 each TD Q3D #14 patch 04/28/18 Unknown Rx cloNIDine [Catapres] 0.1 mg PO Q12HR #60 tablet 04/28/18 Unknown Rx ED Physical Exam - General General appearance: alert, in no apparent distress, other (Contracted upper and lower extremities will make eye contact) - Head Head exam: Present: atraumatic, normocephalic - Eye Eye exam: Present: normal appearance - ENT ENT exam: Present: mucous membranes moist - Neck Neck exam: Present: normal inspection - Respiratory Respiratory exam: Present: normal lung sounds bilaterally. Absent: respiratory distress, wheezes, rales, rhonchi - Cardiovascular Cardiovascular Exam: Present: regular rate, normal rhythm. Absent: rubs, gallop - GI/Abdominal GI/Abdominal exam: Present: soft, other (G-tube button in place without surrounding discharge or redness). Absent: distended, tenderness, guarding, rebound, rigid - Extremities Exam Extremities exam: Present: other (Intact skin no deformity contracted upper and lower extremities) - Neurological Exam Neurological exam: Present: alert - Psychiatric Psychiatric exam: Present: flat affect - Skin Skin exam: Present: warm, dry, intact, normal color ED Course Vital Signs 04/10/19 11:19 Temperature 98.7 F Pulse Rate 86 Respiratory 16 Rate Blood Pressure 127/88 O2 Sat by Pulse 94 Oximetry ED Medical Decision Making - Radiology Data Radiology results: report reviewed Chest radiograph no acute findings, left femur: No acute findings - Medical Decision Making History of fall without severe injury detected on physical exam and femur radiographs. Reported fever afebrile here. Chest x-ray negative for pneumonia. Mother given reassurance. Discharged home. Critical care attestation.: If time is entered above; I have spent that time in minutes in the direct care of this critically ill patient, excluding procedure time. ED Disposition Clinical Impression: Fall from chair, History of fever Disposition: DC-01 TO HOME OR SELFCARE Is pt being admited?: No Does the pt Need Aspirin: No Condition: Stable Referrals: PRIMARY CARE, [Primary Care Provider] - 3-5 Days
[2019-04-10 11:32] VITALS: BP 127/88
--- NOTE | 2019-04-10 12:50 | XRay Report ---
LEFT FEMUR 2 VIEWS INDICATION: fall. COMPARISON: None. IMPRESSION: Limited nonstandard views are presented secondary to the patient's condition. No obviou s femoral injury is appreciated. Signer Name: Caesar Sarmiento Jr, MD Signed: 04/10/2019 12:45 PM Workstation Name: [id number]
--- NOTE | 2019-04-10 12:51 | XRay Report ---
CHEST 1 VIEW INDICATION: dyspnea. COMPARISON: 04/23/2018 FINDINGS: Support devices: None. Heart: Stable mild cardiomegaly Lungs/Pleura: The lungs are grossly clear given rotation to the left. Pulmonary venous congestion and small right pleural effusion have resolved since the previous exam. No pneumothorax. Additional findings: None. IMPRESSION: Mild cardiomegaly. Lungs generally clear. Signer Name: Caesar Sarmiento Jr, MD Signed: 04/10/2019 12:46 PM Workstation Name: [id number]
== END 2019-04-10 15:29 | disposition home or self-care (01) ==
LOC: ED 11:01
DX: R50.9 Fever, unspecified (principal); I10 Essential (primary) hypertension; Z86.69 Personal history of other diseases of the nervous system and sense organs; Z79.899 Other long term (current) drug therapy; W07.XXXA Fall from chair, initial encounter; Y93.89 Activity, other specified; Y92.218 Other school as the place of occurrence of the external cause; Y99.8 Other external cause status
CPT/HCPCS: 71045; 99283

== ENCOUNTER 2020-01-29 12:54 | Emergency (ER) | payer MEDICARE ==
--- NOTE | 2020-01-29 14:22 | Emergency Department Report ---
ED Fall HPI - General Stated Complaint: FALL Time Seen by Provider: 01/29/20 14:10 - History of Present Illness Initial Comments: Patient is a 44-year-old male who presents with his mother for evaluation of fall earlier today. Mother states quarter seamer stated this and patient was in process of falling off bed, states patient's fall was interrupted by quarter seamer. Mother notes patient holding his right leg on comfortably, deviated from baseline. - Related Data Home Medications Medication Instructions Recorded Confirmed Last Taken Lactulose [Constulose] 2.5 tsp PO BID 04/14/18 04/14/18 Unknown Metoprolol Tartrate 100 mg PO DAILY 04/14/18 04/14/18 Unknown PHENobarbitaL [Phenobarbital] 2.5 tsp PO BID 04/14/18 04/14/18 Unknown Previous Rx's Medication Instructions Recorded Last Taken Type Amoxicillin/K Clav Tab [Augmentin 1 each PO Q12HR #10 tablet 04/28/18 Unknown Rx 875MG TAB] Scopolamine [Transderm-Scop] 1 each TD Q3D #14 patch 04/28/18 Unknown Rx cloNIDine [Catapres] 0.1 mg PO Q12HR #60 tablet 04/28/18 Unknown Rx Oxycodone HCl [oxyCODONE 1 MG/ML 5 mg PO Q4HR PRN #90 ml 01/29/20 Unknown Rx ORAL LIQ] Allergies Allergy/AdvReac Type Severity Reaction Status Date / Time No Known Allergies Allergy Unverified 04/14/18 12:46 ED Review of Systems ROS: Stated complaint: FALL Other details as noted in HPI Comment: All other systems reviewed and negative ED Past Medical Hx - Past Medical History Hx Hypertension: Yes Hx Congestive Heart Failure: No Hx Diabetes: No Hx Deep Vein Thrombosis: No Hx Seizures: Yes Hx Asthma: No Hx COPD: No Additional medical history: Cerebral Palsy - Surgical History Hx Pacemaker: No Hx Internal Defibrillator: No - Social History Smoking Status: Never Smoker - Medications Home Medications: Home Medications Medication Instructions Recorded Confirmed Last Taken Type Lactulose [Constulose] 2.5 tsp PO BID 04/14/18 04/14/18 Unknown History Metoprolol Tartrate 100 mg PO DAILY 04/14/18 04/14/18 Unknown History PHENobarbitaL [Phenobarbital] 2.5 tsp PO BID 04/14/18 04/14/18 Unknown History Amoxicillin/K Clav Tab [Augmentin 1 each PO Q12HR #10 tablet 04/28/18 Unknown Rx 875MG TAB] Scopolamine [Transderm-Scop] 1 each TD Q3D #14 patch 04/28/18 Unknown Rx cloNIDine [Catapres] 0.1 mg PO Q12HR #60 tablet 04/28/18 Unknown Rx Oxycodone HCl [oxyCODONE 1 MG/ML 5 mg PO Q4HR PRN #90 ml 01/29/20 Unknown Rx ORAL LIQ] ED Physical Exam - General Limitations: Physical Limitation, Other (Cognitive impairment at baseline) General appearance: alert - Head Head exam: Present: atraumatic - Eye Eye exam: Present: normal appearance - ENT ENT exam: Present: normal exam - Neck Neck exam: Present: normal inspection - Respiratory Respiratory exam: Present: normal lung sounds bilaterally - Cardiovascular Cardiovascular Exam: Present: regular rate - GI/Abdominal GI/Abdominal exam: Present: soft. Absent: tenderness - Extremities Exam Extremities exam: Present: other (Tenderness to right lateral hip, tenderness with passive range of motion of right knee and right ankle, contractures of all extremities at baseline) ED Course Vital Signs 01/29/20 14:18 Temperature 98.3 F Pulse Rate 70 Respiratory 18 Rate Blood Pressure 147/101 O2 Sat by Pulse 100 Oximetry - Reevaluation(s) Reevaluation #1: 01/29/20 18:23 Patient treated with morphine 4mg IM x 1. Case discussed at length with Dr. Dickerson, orthopedics. Dr. Dickerson recommends immobilization in posterior long splint and discharged with outpatient follow-up. Dr. Dickerson made aware of displacement, notes patient is not at risk for fat embolism given the distal nature of the fracture. States patient would not be considered surgical candidate secondary to normal nonambulatory status. This was discussed at length with mother who expressed understanding will follow up with Dr. Dickerson as outpatient. Reevaluation #2: 01/29/20 18:25 Splint applied by ED nurse and sewing pattern layout technician. Patient with distal neurovascular exam intact following splint placement ED Medical Decision Making - Radiology Data Radiology results: report reviewed Right hip x-ray: Negative per radiology Right ankle x-ray: Negative per radiology Right knee x-ray: Comminuted displaced fracture of distal right femur as read by radiology Critical care attestation.: If time is entered above; I have spent that time in minutes in the direct care of this critically ill patient, excluding procedure time. ED Disposition Clinical Impression: Closed fracture of right distal femur Disposition: TO HOME OR SELFCARE Is pt being admited?: No Condition: Stable Instructions: Cast or Splint Care, Adult, [id number], Distal Femur Fracture, Adult Additional Instructions: Follow-up with Dr. Dickerson (orthopedics) and/or primary care doctor for referral to orthopedics as further evaluation is required. Dr. Dickerson is able to follow- up with you as outpatient following holidays. Return to the emergency department for any worsening symptoms. Prescriptions: Oxycodone HCl [oxyCODONE 1 MG/ML ORAL LIQ] 5 mg PO Q4HR PRN #90 ml PRN Reason: Pain, Moderate (4-6) Referrals: [facility] [Other] - 3-5 Days DAISY DICKERSON MD [Staff Physician] - 3-5 Days
--- NOTE | 2020-01-29 15:42 | XRay Report ---
XR ankle 2V RT, XR knee 3V RT, XR hip 2-3V RT INDICATION / CLINICAL INFORMATION: trauma COMPARISON: Left femur radiograph from 04/10/2019. CT from 04/21/2018. FINDINGS: Overall gracile appearance of the bones RIGHT HIP: There is similar dysplastic appearance of the hips with coxa valga. Corticated erosive brady nges of the posterior medial right femoral head is stable. Erosive changes of the right SI joint are also similar. No acute fracture or dislocation. There is soft tissue swelling about the left hip. No soft tissue gas or radiopaque foreign body. RIGHT KNEE: There is an acute comminuted fracture of the distal right femoral metadiaphysis with post erior butterfly fragment. There is mild fracture override, measuring 1.3 cm's. Fracture demonstrates one half shaft width of medial displacement the distal fracture fragment. No additional fracture. Cor ticated osseous excrescence arising from the medial collateral ligament, may reflect sequela of prior trauma of the MCL. No significant joint capsular distention. RIGHT ANKLE: There is diffuse osteopenia with plantar contraction of the forefoot. No acute fracture or cortical destructive changes. There is diffuse soft tissue swelling, most pronounced dorsal forefo ot. No soft tissue gas or radiopaque foreign body. IMPRESSION: 1. Acute comminuted and displaced fracture of the distal right femoral shaft. 2. Otherwise, no acute fracture of the right hip or ankle. 3. Chronic findings detailed above. Signer Name: Duncan Roman MD Signed: 01/29/2020 3:37 PM Workstation Name: [id number]
[2020-01-29] MEDS ORDERED: MORPHINE 4 MG/1 ML INJ IV ONE (15:51)
[2020-01-29] MEDS ORDERED: MORPHINE 4 MG/1 ML INJ IM ONE (16:03)
[2020-01-29 21:59] VITALS: BP 120/88
[2020-01-29] MEDS ORDERED: HYDROmorphone 1 MG/1 ML INJ IM ONE (22:42)
== END 2020-01-30 02:03 | disposition home or self-care (01) ==
LOC: ED 12:54
DX: S72.401A Unspecified fracture of lower end of right femur, initial encounter for closed fracture (principal); I10 Essential (primary) hypertension; M79.89 Other specified soft tissue disorders; Z79.899 Other long term (current) drug therapy; Z86.69 Personal history of other diseases of the nervous system and sense organs; W06.XXXA Fall from bed, initial encounter; Y93.89 Activity, other specified; Y92.89 Other specified places as the place of occurrence of the external cause; Y99.8 Other external cause status
CPT/HCPCS: 29505; 73502; 73562; 73600; 96372; 99284; J1170; J2270

== ENCOUNTER 2020-03-05 09:21 | Outpatient (CLI) | payer MEDICARE ==
--- NOTE | 2020-03-05 10:55 | XRay Report ---
RIGHT FEMUR 4 VIEW(S) INDICATION / CLINICAL INFORMATION: UNSPECIFIED FRACTUREOF RIGHT FEMUR COMPARISON: None available. FINDINGS: BONES / JOINT(S): There is a comminuted fracture of the distal femoral metadiaphysis with mild medial displacement of the distal fracture fragment. 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 SOFT TISSUES: No significant abnormality. ADDITIONAL FINDINGS: None. Signer Name: Rodrigue Herzog MD Signed: 03/05/2020 10:51 AM Workstation Name: [id number]
== END 2020-03-05 09:22 | disposition home or self-care (01) ==
LOC: XRAY 09:21
PROVIDERS: ATTEND Orthopaedic Surgery
DX: S72.91XA Unspecified fracture of right femur, initial encounter for closed fracture (principal); X58.XXXA Exposure to other specified factors, initial encounter; Y93.89 Activity, other specified; Y92.89 Other specified places as the place of occurrence of the external cause; Y99.8 Other external cause status

== ENCOUNTER 2020-04-16 10:00 | Day surgery (SDC) | payer MEDICARE ==
--- NOTE | 2020-04-16 11:18 | XRay Report ---
. RIGHT FEMUR 2 VIEWS INDICATION: RIGHT FEMUR PAIN. COMPARISON: 03/05/2020 IMPRESSION: Comminuted fracture involving the distal right femoral metadiaphysis is unchanged in pos ition and alignment since 03/05/2020. A mild degree of calcified callus has developed although fractur e lines remain evident. The remainder of the right femur is intact. Mild osteopenia is noted. Soft ti ssue swelling has decreased. Signer Name: Caesar Sarmiento Jr, MD Signed: 04/16/2020 11:14 AM Workstation Name: [id number]
== END 2020-04-16 10:01 | disposition home or self-care (01) ==
LOC: XRAY 10:00
PROVIDERS: ATTEND Orthopaedic Surgery
DX: S72.401D Unspecified fracture of lower end of right femur, subsequent encounter for closed fracture with routine healing (principal); L84 Corns and callosities; X58.XXXD Exposure to other specified factors, subsequent encounter

== ENCOUNTER 2021-10-21 11:40 | Inpatient (IN) | payer OTHER, MEDICARE ==
--- NOTE | 2021-10-21 14:17 | XRay Report ---
ABDOMEN 1 VIEW INDICATION / CLINICAL INFORMATION: G TUBE DISLOGED. COMPARISON: None available. FINDINGS: TUBES / LINES: None. BOWEL GAS PATTERN: No significant abnormality. FREE AIR / EXTRALUMINAL GAS: None seen. ADDITIONAL FINDINGS: Spinal fixation hardware in place. There are surgical clips projecting over the upper abdomen. IMPRESSION: 1. No acute process. Signer Name: Mckenna Pelaez MD Signed: 10/21/2021 2:13 PM Workstation Name: [email or web address]
--- NOTE | 2021-10-21 15:23 | Emergency Department Report ---
ED General Adult HPI - General Chief complaint: Medical Clearance Stated complaint: GASTRO TUBE PUI?: No Time Seen by Provider: 10/21/21 13:34 Source: patient, EMS Mode of arrival: Stretcher Limitations: Physical Limitation - History of Present Illness Initial comments: THIS IS A 46 YEAR OLD MALE WITH CEREBRAL PALSY BROUGHT IN BY MOTHER WITH CONCERN OF G TUBE BEING DISLODGED. MOTHER STATES SHE CHANGES THE G-TUBE HERSELF FREQUENTLY AND WHEN SHE WAS CHANGING IT TODAY AROUND 9AM; SHE HAS NOT BEEN ABLE TO REINSERT IT. MOTHER STATES PATIENT HAS G-TUBE FOR ABOUT 30 YEARS NOW. MOTHER DENIES ANY OTHER SYMPTOMS FOR THE PATIENT. - Related Data Home Medications Medication Instructions Recorded Confirmed Last Taken Lactulose [Constulose] 2.5 tsp PO BID 04/14/18 04/14/18 Unknown Metoprolol Tartrate 100 mg PO DAILY 04/14/18 04/14/18 Unknown PHENobarbitaL [Phenobarbital] 2.5 tsp PO BID 04/14/18 04/14/18 Unknown Previous Rx's Medication Instructions Recorded Last Taken Type Amoxicillin/K Clav Tab [Augmentin 1 each PO Q12HR #10 tablet 04/28/18 Unknown Rx 875MG TAB] Scopolamine [Transderm-Scop] 1 each TD Q3D #14 patch 04/28/18 Unknown Rx cloNIDine [Catapres] 0.1 mg PO Q12HR #60 tablet 04/28/18 Unknown Rx Oxycodone HCl [oxyCODONE 1 MG/ML 5 mg PO Q4HR PRN #90 ml 01/29/20 Unknown Rx ORAL LIQ] Zinc Oxide [Boudreauxs] 1 applicatio TP QID #10 oint.pack 01/29/20 Unknown Rx Allergies Allergy/AdvReac Type Severity Reaction Status Date / Time No Known Allergies Allergy Unverified 04/14/18 12:46 ED Review of Systems ROS: Stated complaint: GASTRO TUBE Other details as noted in HPI Comment: Unobtainable due to pts medical conditions Constitutional: no symptoms reported ED Past Medical Hx - Past Medical History Previous Medical History?: Yes Hx Hypertension: Yes Hx Congestive Heart Failure: No Hx Diabetes: No Hx Deep Vein Thrombosis: No Hx Seizures: Yes Hx Asthma: No Hx COPD: No Additional medical history: Cerebral Palsy - Surgical History Hx Pacemaker: No Hx Internal Defibrillator: No - Social History Smoking Status: Never Smoker Substance Use Type: None - Medications Home Medications: Home Medications Medication Instructions Recorded Confirmed Last Taken Type Lactulose [Constulose] 2.5 tsp PO BID 04/14/18 04/14/18 Unknown History Metoprolol Tartrate 100 mg PO DAILY 04/14/18 04/14/18 Unknown History PHENobarbitaL [Phenobarbital] 2.5 tsp PO BID 04/14/18 04/14/18 Unknown History Amoxicillin/K Clav Tab [Augmentin 1 each PO Q12HR #10 tablet 04/28/18 Unknown Rx 875MG TAB] Scopolamine [Transderm-Scop] 1 each TD Q3D #14 patch 04/28/18 Unknown Rx cloNIDine [Catapres] 0.1 mg PO Q12HR #60 tablet 04/28/18 Unknown Rx Oxycodone HCl [oxyCODONE 1 MG/ML 5 mg PO Q4HR PRN #90 ml 01/29/20 Unknown Rx ORAL LIQ] Zinc Oxide [Boudreauxs] 1 applicatio TP QID #10 oint.pack 01/29/20 Unknown Rx ED Physical Exam - General Limitations: Physical Limitation General appearance: alert, in no apparent distress - Head Head exam: Present: atraumatic, normocephalic, normal inspection - Eye Eye exam: Present: normal appearance, PERRL, EOMI Pupils: Present: normal accommodation - ENT ENT exam: Present: normal exam, normal orophraynx, mucous membranes moist - Neck Neck exam: Present: normal inspection, full ROM - Respiratory Respiratory exam: Present: normal lung sounds bilaterally - Cardiovascular Cardiovascular Exam: Present: regular rate, normal rhythm, normal heart sounds - GI/Abdominal GI/Abdominal exam: Present: soft, distended, other (G-TUBE SITE APPEARS CLEAN AND INTACT; NO DISCHARGE. ). Absent: tenderness, guarding, rebound, rigid - Extremities Exam Extremities exam: Present: normal inspection - Back Exam Back exam: Present: normal inspection, full ROM - Neurological Exam Neurological exam: Present: altered ED Course Vital Signs 10/21/21 10/21/21 12:19 12:41 Temperature 98.9 F Pulse Rate 84 Respiratory 14 Rate Blood Pressure 154/99 [Left] O2 Sat by Pulse 97 97 Oximetry - Reevaluation(s) Reevaluation #1: 10/21/21 15:23 ATTEMPT TO REPLACE NEW F16 G-TUBE WAS UNSUCCESSFUL; I WILL PAGE GENERAL SURGEON FOR ASSISTANCE. 10/21/21 16:[address] BANDA; I WILL ATTEMPT TO REINSERT G-TUBE AGAIN. REATTEMPT UNSUCCESSFUL. SPOKE TO DR. ANDERSON WHO KINDLY ACCEPTED THE PATIENT. Critical care attestation.: If time is entered above; I have spent that time in minutes in the direct care of this critically ill patient, excluding procedure time. ED Disposition Clinical Impression: Gastrostomy tube dysfunction Disposition: ADMITTED INPATIENT Is pt being admited?: Yes Does the pt Need Aspirin: No Condition: Stable Time of Disposition: 16:15
[2021-10-21] MEDS ORDERED: SODIUM CHLORIDE 0.9% 1000 ML 1,000 ML IV ONE (16:12)
--- NOTE | 2021-10-21 16:55 | History and Physical Report ---
History of Present Illness Chief complaint: His tube came out History of present illness: 46 YO Male with HTN, Seizure Disorder, CP, Debility, Dysphagia S/P PEG tube placement presents to ED for evaluation. Pt is lethargic and nonverbal at baseline and unable to provide history. Pt history taken from mother who is at bedside during exam and interview. Patient mother reports "he is feeding tube is not working". Patient mother reports that while manipulating the tube this morning it came out and she was unable to reinsert it. EMS notified, and upon arrival the patient was subsequent transported to [facility] for further care and evaluation of the aforementioned symptoms.. Pt seen and evaluated in ED. All lab and imaging studies reviewed. Patient found to have volume depletion, dislodged PEG tube. Multiple attempts to reinsert PEG tube unsuccessful. Surgery team consulted in ED. No reports of fever, chills, chest pain, palpitation, productive cough, skin rash, recent contact, known exposure to COVID-19. Patient has diminished cognition at the time of evaluation but has a positive gag reflex and is able to protect his airway without difficulty. Patient admitted to medical floor. Advanced care planning conducted in ED. Past History Past Medical History: hypertension, seizures, other (See HPI) Past Surgical History: Other (PEG tube placement) Social history: single, lives with family Family history: hypertension Medications and Allergies Allergies Allergy/AdvReac Type Severity Reaction Status Date / Time No Known Allergies Allergy Unverified 04/14/18 12:46 Home Medications Medication Instructions Recorded Confirmed Last Taken Type Lactulose [Constulose] 2.5 tsp FEEDTUBE BID 04/14/18 10/21/21 Unknown History Metoprolol Tartrate 100 mg FEEDTUBE DAILY 04/14/18 10/21/21 Unknown History PHENobarbitaL [Phenobarbital] 2.5 tsp FEEDTUBE BID 04/14/18 10/21/21 Unknown History cloNIDine [Catapres] 0.1 mg FEEDTUBE Q12HR 10/21/21 10/21/21 Unknown History Active Meds: Active Medications Sodium Chloride (Nacl 0.9% 1000 Ml) 1,000 mls @ 125 mls/hr IV ONCE ONE Stop: 10/22/21 00:11 Review of Systems ROS unobtainable: due to mental status Exam - Constitutional Vitals: Temp Pulse Resp BP Pulse Ox 98.9 F 84 14 154/99 97 10/21/21 12:19 10/21/21 12:19 10/21/21 12:19 10/21/21 12:19 10/21/21 12:41 General appearance: Present: mild distress - EENT Eyes: Present: PERRL ENT: hearing intact, clear oral mucosa, hearing decreased - Neck Neck: Present: supple, normal ROM - Respiratory Respiratory effort: normal Respiratory: bilateral: diminished - Cardiovascular Heart Sounds: Present: S1 & S2. Absent: rub, click - Extremities Extremities: pulses symmetrical, No edema Peripheral Pulses: within normal limits - Abdominal General gastrointestinal: Present: soft, non-distended Male genitourinary: Present: normal - Integumentary Integumentary: Present: clear, dry, clammy, decreased turgor - Musculoskeletal Musculoskeletal: generalized weakness - Psychiatric Psychiatric: no appropriate mood/affect, no intact judgment & insight, no memory intact - Neurologic Neurologic: CNII-XII intact, no focal deficits, moves all extremities, no gait normal Assessment and Plan - Patient Problems (1) Gastrostomy tube dysfunction Current Visit: Yes Status: Acute Plan to address problem: PEG tube replacement attempted but unsuccessful. Surgery team consulted in ED. Patient pending surgical tube placement. (2) Cerebral palsy Current Visit: No Status: Acute Plan to address problem: Chronic, supportive care. (3) Seizure disorder Current Visit: No Status: Acute Plan to address problem: Continue current therapy. Seizure precautions, fall precautions. Neuro check. (4) DVT prophylaxis Current Visit: No Status: Acute Plan to address problem: SCDs bilateral lower extremities while in bed (5) Advance care planning Current Visit: Yes Status: Acute Plan to address problem: Disease education conducted, care plan discussed, diagnoses discussed, prognosis discussed patient mother knowledges understanding agreement care plan, +30 minutes. (6) Preventative health care Current Visit: Yes Status: Acute Plan to address problem: Patient family counseled regarding PEG tube care, risk factor reduction, outpatient follow-up with primary care physician for all age and risk factor appropriate screening test. +30 minutes.
[2021-10-21 20:01] LABS: Basophils % (Auto) 0.8 % (0.0-1.8); Eosinophils # (Auto) 0.2 K/mm3 (0.0-0.4); Hematocrit 41.2 % (35.5-45.6); Hemoglobin 13.8 gm/dl (11.8-15.2); Lymphocytes # (Auto) 2.1 K/mm3 (1.2-5.4); Lymphocytes % (Auto) 45.3 % (13.4-35.0); Mean Corpuscular HGB Conc 33 % (32-34); Mean Corpuscular Volume 87 fl (84-94); Monocytes # (Auto) 0.5 K/mm3 (0.0-0.8); Monocytes % (Auto) 10.5 % (0.0-7.3); Platelet Count 136 K/mm3 (140-440); Red Blood Count 4.72 M/mm3 (3.65-5.03); Red Cell Distribution Width 13.8 % (13.2-15.2)
[2021-10-21 20:23] LABS: Alanine Aminotransferase 11 units/L (7-56); Albumin 3.1 g/dL (3.9-5); Blood Urea Nitrogen 5 mg/dL (9-20); Calcium 6.8 mg/dL (8.4-10.2); Hemolysis Index 14
[2021-10-21 20:24] LABS: BUN/Creatinine Ratio 17
[2021-10-21] MEDS ORDERED: ALBUTEROL 2.5 MG/3 ML NEBU IH PRN (20:53)
[2021-10-21] MEDS ORDERED: ONDANSETRON 4 MG/2 ML INJ IV PRN (20:53)
[2021-10-21] MEDS ORDERED: HYDROmorphone 0.5 MG/0.5 ML INJ IV PRN (20:53)
[2021-10-21] MEDS ORDERED: oxyCODONE /ACETAMINOPHEN 5-325MG TAB PO PRN (20:53)
[2021-10-21] MEDS ORDERED: ACETAMINOPHEN 325 MG TAB PO PRN (20:53)
[2021-10-21] MEDS ORDERED: PHENobarbital 20 MG/5 ML ORAL LIQD FEEDTUBE SCH (22:00)
[2021-10-22] MEDS: cloNIDine 0.1 MG TAB FEEDTUBE SCH ×3 (01:43→22:11)
[2021-10-22] MEDS ORDERED: PHENobarbitaL 130 MG/ML VIAL IV ONE (03:38)
[2021-10-22] MEDS: SODIUM CHLORIDE 0.9% 1000 ML 1,000 ML IV SCH (09:03)
[2021-10-22] MEDS: METOPROLOL TARTRATE 100 MG TAB FEEDTUBE SCH (09:03)
--- NOTE | 2021-10-22 11:16 | Consultation ---
History of Present Illness Consult date: 10/22/21 - History of present illness History of present illness: 46 YO Male with HTN, Seizure Disorder, CP, Debility, Dysphagia S/P PEG tube placement presents to ED for evaluation. Pt is lethargic and nonverbal at baseline and unable to provide history. Pt history taken from mother who is at bedside during exam and interview. Pt psh positive for antireflux procedure via open approach and placement of gtube. Patient mother reports "he is feeding tube is not working". Patient mother reports that while manipulating the tube this morning it came out and she was unable to reinsert it. EMS notified, and upon arrival the patient was subsequent transported to [facility] for further care and evaluation of the aforementioned symptoms.. Pt seen and evaluated in ED. All lab and imaging studies reviewed. Patient found to have volume depletion, dislodged PEG tube. Multiple attempts to reinsert PEG tube unsuccessful. No reports of fever, chills, chest pain, palpitation, productive cough, skin rash, recent contact, known exposure to COVID-19. Patient has diminished cognition at the time of evaluation but has a positive gag reflex and is able to protect his airway without difficulty. Patient admitted to medical floor. Past History Past Medical History: hypertension, seizures, other (See HPI) Past Surgical History: Other (PEG tube placement) Social history: single, lives with family Family history: hypertension Medications and Allergies Allergies Allergy/AdvReac Type Severity Reaction Status Date / Time No Known Allergies Allergy Verified 10/22/21 09:19 Home Medications Medication Instructions Recorded Confirmed Last Taken Type Lactulose [Constulose] 2.5 tsp FEEDTUBE BID 04/14/18 10/22/21 10/21/21 History PHENobarbitaL [Phenobarbital] 2.5 tsp FEEDTUBE BID 04/14/18 10/22/21 10/21/21 History cloNIDine [Catapres] 0.1 mg FEEDTUBE Q12HR 10/21/21 10/22/21 10/21/21 History Metoprolol Xl [Metoprolol 100 mg FEEDTUBE QDAY 10/22/21 10/22/21 10/21/21 History SUCCINATE ER TAB] Active Meds: Active Medications Acetaminophen (Acetaminophen 325 Mg Tab) 650 mg PO Q4H PRN PRN Reason: Pain MILD(1-3)/Fever >100.5/PIERRE Albuterol (Albuterol 2.5 Mg/3 Ml Nebu) 2.5 mg IH Q4HRT PRN PRN Reason: Shortness Of Breath Clonidine HCl (Clonidine 0.1 Mg Tab) 0.1 mg FEEDTUBE Q12HR COUNT INCLUDES THE [facility] Last Admin: 10/22/21 09:03 Dose: Not Given Hydromorphone HCl (Hydromorphone 0.5 Mg/0.5 Ml Inj) 0.5 mg IV Q13H PRN PRN Reason: Pain , Severe (7-10) Sodium Chloride (Nacl 0.9% 1000 Ml) 1,000 mls @ 125 mls/hr IV DIRECT COUNT INCLUDES THE [facility] Last Admin: 10/22/21 09:03 Dose: 125 mls/hr Metoprolol Tartrate (Metoprolol Tartrate 100 Mg Tab) 100 mg FEEDTUBE DAILY COUNT INCLUDES THE [facility] Last Admin: 10/22/21 09:03 Dose: Not Given Ondansetron HCl (Ondansetron 4 Mg/2 Ml Inj) 4 mg IV Q8H PRN PRN Reason: Nausea And Vomiting Oxycodone/Acetaminophen (Oxycodone /Acetaminophen 5-325mg Tab) 1 tab PO Q6H PRN PRN Reason: Pain, Moderate (4-6) Sodium Chloride (Sodium Chloride 0.9% 10 Ml Flush Syringe) 10 ml IV BID COUNT INCLUDES THE [facility] Last Admin: 10/22/21 01:43 Dose: 10 ml Sodium Chloride (Sodium Chloride 0.9% 10 Ml Flush Syringe) 10 ml IV PRN PRN PRN Reason: LINE FLUSH Exam Vital Signs Temp Pulse Resp BP Pulse Ox 98.9 F 84 14 154/99 97 10/21/21 12:19 10/21/21 12:19 10/21/21 12:19 10/21/21 12:19 10/21/21 12:19 - General physical appearance Positive: well developed - Eyes Positive: PERRL - Neck Positive: no masses, no bruits, trachea midline - Respiratory Positive: normal expansion - Cardiovascular Rhythm: regular - Extremities Extremities: no ischemia, No edema - Abdomen Abdomen: Present: soft, bowel sounds normal, other (midline incision from upper abdoto umbilicus. LUQ gtube site.). Absent: tender, distended, masses, rebound - Neurologic Neurologic: other (pt unable to respond verbally, Eyes open and aware of surroundings.) Results - Labs 10/21/21 19:16 10/21/21 19:16 Abnormal lab results 10/21/21 10/21/21 Range/Units 19:16 19:16 Plt Count 136 L (140-440) K/mm3 Lymph % (Auto) 45.3 H (13.4-35.0) % [place] % (Auto) 10.5 H (0.0-7.3) % Eos % (Auto) 5.0 H (0.0-4.3) % Seg Neutrophils % 38.4 L (40.0-70.0) % Potassium 3.3 L (3.6-5.0) mmol/L Chloride 111.0 H (98-107) mmol/L Carbon Dioxide 19 L (22-30) mmol/L BUN 5 L (9-20) mg/dL Creatinine 0.3 L (0.8-1.3) mg/dL Glucose 64 L (75-100) mg/dL Calcium 6.8 L (8.4-10.2) mg/dL Total Protein 5.6 L (6.3-8.2) g/dL Albumin 3.1 L (3.9-5) g/dL Diabetes panel 10/21/21 Range/Units 19:16 Sodium 142 (137-145) mmol/L Potassium 3.3 L (3.6-5.0) mmol/L Chloride 111.0 H (98-107) mmol/L Carbon Dioxide 19 L (22-30) mmol/L BUN 5 L (9-20) mg/dL Creatinine 0.3 L (0.8-1.3) mg/dL Glucose 64 L (75-100) mg/dL Calcium 6.8 L (8.4-10.2) mg/dL AST 15 (5-40) units/L ALT 11 (7-56) units/L Alkaline Phosphatase 68 (35-129) units/L Total Protein 5.6 L (6.3-8.2) g/dL Albumin 3.1 L (3.9-5) g/dL Calcium panel 10/21/21 Range/Units 19:16 Calcium 6.8 L (8.4-10.2) mg/dL Albumin 3.1 L (3.9-5) g/dL Pituitary panel 10/21/21 Range/Units 19:16 Sodium 142 (137-145) mmol/L Potassium 3.3 L (3.6-5.0) mmol/L Chloride 111.0 H (98-107) mmol/L Carbon Dioxide 19 L (22-30) mmol/L BUN 5 L (9-20) mg/dL Creatinine 0.3 L (0.8-1.3) mg/dL Glucose 64 L (75-100) mg/dL Calcium 6.8 L (8.4-10.2) mg/dL Adrenal panel 10/21/21 Range/Units 19:16 Sodium 142 (137-145) mmol/L Potassium 3.3 L (3.6-5.0) mmol/L Chloride 111.0 H (98-107) mmol/L Carbon Dioxide 19 L (22-30) mmol/L BUN 5 L (9-20) mg/dL Creatinine 0.3 L (0.8-1.3) mg/dL Glucose 64 L (75-100) mg/dL Calcium 6.8 L (8.4-10.2) mg/dL Total Bilirubin 0.30 (0.1-1.2) mg/dL AST 15 (5-40) units/L ALT 11 (7-56) units/L Alkaline Phosphatase 68 (35-129) units/L Total Protein 5.6 L (6.3-8.2) g/dL Albumin 3.1 L (3.9-5) g/dL Assessment and Plan Displaced chronic gtube. Initial channel closed. Pt with past hx of open Chano and possibly an open gtube placement. Will attempt egd assisted replacement of the g Tube.
[2021-10-22] MEDS ORDERED: ceFAZolin/Water 2 GM/20 ML 2 GM/20 ML SYRINGE IV ONE (13:30)
--- NOTE | 2021-10-22 13:50 | Anesthesia Consultation ---
Anesthesia Consult and Med Hx Date of service: 10/22/21 - Airway Anesthetic Teeth Evaluation: Poor (no loose teeth, per mother) Intubation Access Assessment: Possibly Difficult (not cooperative with airway exam) - Pre-Operative Health Status ASA Pre-Surgery Classification: ASA3 Proposed Anesthetic Plan: MAC - Pulmonary Hx Respiratory Symptoms: No Hx Pneumonia: No - Cardiovascular System Hx Hypertension: Yes Hx Heart Attack/AMI: No - Central Nervous System Hx Neuromuscular Disorder: Yes (cerebral palsy, scoliosis s/p spinal fusion) Hx Seizures: Yes CVA: No - Endocrine Hx Renal Disease: No Hx Liver Disease: No Hx Insulin Dependent Diabetes: No Hx Non-Insulin Dependent Diabetes: No Hx Thyroid Disease: No - Additional Comments Anesthesia Medical History Comments: PMH and anesthesia consent obtained from mother at bedside. No hx anesthetic complications.
--- NOTE | 2021-10-22 13:50 | Anesthesia Day of Surgery ---
Anesthesia Day of Surgery - Day of Surgery Patient Examined: Yes Patient H&P Reviewed: Yes Patient is NPO: Yes
[2021-10-22] MEDS ORDERED: propofoL 200 MG/20 ML VIAL IV ONE ×2 (14:18→14:27)
--- NOTE | 2021-10-22 14:58 | Operative Report ---
Operative Report Operative Report: Date: 10/22/2021 Preoperative diagnosis: Dysphagia Postop diagnosis same Procedure: EGD with PEG Surgeon: Dr. Triana A mouthguard was placed through which a flexible endoscope was passed through the mouth and into the esophagus. The endoscope was advanced through the esophagus and into the stomach. The scope was retroflexed and the Mau fundoplication is viewed in the proximal stomach. The remainder of stomach was unremarkable. The stomach was insufflated and transillumination performed. An area of transillumination was visualized in the left upper quadrant and marked. The prior gastrostomy site is seen in the stomach on its anterior surface.The pylorus was entered, and the first portion of the duodenum was unremarkable. The scope was then withdrawn back into the stomach and retroflexed. The entirety of the stomach was unremarkable. The skin was then prepped and draped in usual sterile fashion 2 cm away from the old site. Local anesthetic was infiltrated to the skin at the intended incision site. A small incision was made in the skin using an 11 blade. An introducer needle/breakaway sheath was inserted directly through this incision into the stomach under direct endoscopic visualization. The needle was removed. The wire was passed and grasped with a snare by the patient support assistant and the wire pulled along with the endoscope through the mouth. The PEG tube was assembled onto the wire and pulled back through the mouth and down into the stomach. The outer bumper was at 4 cm at the skin. The PEG tube was cut to size and assembled in the usual fashion. A drain sponge was applied between the skin and the PEG tube and the tube secured with tape. I then reinserted the endoscope into the mouth and down into the stomach. The PEG tube inner bumper was seen to lay flush against the gastric mucosa without tension. There is no bleeding. The stomach was then desufflated and the endoscope withdrawn.
--- NOTE | 2021-10-22 15:24 | Post Anesthesia Evaluation ---
- Post Anesthesia Evaluation Patient Participated: No (baseline mentation) Airway Patent: Yes Stable Respiratory Function: Yes Nausea/Vomiting: No Temp > 96.8F: Yes Pain Manageable: Yes Adequeate Hydration: Yes Anesthesia Complications: No
--- NOTE | 2021-10-22 16:56 | Cat Scan Report ---
CT ABDOMEN AND PELVIS WITHOUT CONTRAST INDICATION / CLINICAL INFORMATION: check position of replaced gtube.. TECHNIQUE: Axial CT images were obtained through the abdomen and pelvis without IV contrast. All CT scans at [facility] location are performed using CT dose reduction for ALARA by means of automated exposure control. COMPARISON: KUB from 10/21/2021. CT abdomen and pelvis without contrast from 04/21/2018. FINDINGS: LOWER CHEST: There is similar severe distortion of the chest secondary to scoliosis. No acute finding s. LIVER: No significant abnormality. GALLBLADDER: There is cholelithiasis without evidence of acute cholecystitis. BILE DUCTS: No significant abnormality. PANCREAS: No significant abnormality. SPLEEN: No significant abnormality. ADRENALS: No significant abnormality. RIGHT KIDNEY/URETER: A tiny nonobstructive stone is seen at the right UPJ without other significant a bnormalities. LEFT KIDNEY/URETER: No significant abnormality. STOMACH/SMALL BOWEL: There is expected positioning of a gastrostomy tube placed just lateral to a tra ct previously created for a gastrostomy tube on image 80 of series 2. No acute findings. COLON: No significant abnormality. APPENDIX: No significant abnormality. PERITONEUM: No free fluid. No free air. No fluid collection. LYMPH NODES: No significant adenopathy. VASCULATURE: No significant abnormality. URINARY BLADDER: No significant abnormality. REPRODUCTIVE ORGANS: No significant abnormality. ADDITIONAL FINDINGS: None. BONES: No acute findings. There is expected positioning of brannon fixation for scoliosis. There are adva nced degenerative/dysplastic changes of the hips. IMPRESSION: 1. Expected positioning of a gastrostomy tube without acute findings. 2. Additional findings as above. Signer Name: Florian Umanzor MD Signed: 10/22/2021 4:52 PM Workstation Name: [id number]
[2021-10-22 20:59] LABS: Hematocrit 48.2 % (35.5-45.6); Mean Corpuscular HGB Conc 33 % (32-34); Mean Corpuscular Volume 88 fl (84-94); Platelet Count 159 K/mm3 (140-440); Red Blood Count 5.51 M/mm3 (3.65-5.03)
[2021-10-22 21:00] LABS: Basophils # (Auto) 0.2 K/mm3 (0.0-0.1); Basophils % (Auto) 1.9 % (0.0-1.8); Eosinophils % (Auto) 0.1 % (0.0-4.3); Lymphocytes # (Auto) 0.6 K/mm3 (1.2-5.4); Lymphocytes % (Auto) 5.6 % (13.4-35.0); Monocytes # (Auto) 0.6 K/mm3 (0.0-0.8); Monocytes % (Auto) 6.2 % (0.0-7.3)
[2021-10-22 21:02] LABS: Blood Urea Nitrogen 5 mg/dL (9-20); Calcium 8.8 mg/dL (8.4-10.2); Hemolysis Index 19
[2021-10-22 21:24] LABS: BUN/Creatinine Ratio 10
[2021-10-22] MEDS ORDERED: ACETAMINOPHEN 650 MG RECT SUPP PR PRN (21:54)
--- NOTE | 2021-10-22 23:48 | Progress Note ---
Assessment and Plan (1) Gastrostomy tube dysfunction Current Visit: Yes Status: Acute Plan to address problem: PEG tube replacement attempted but unsuccessful. Surgery team consulted in ED. Patient s/p surgical tube placement. Ordered CT abdomen to confirm placement, plan to resume diet tomorrow (2) Cerebral palsy Current Visit: No Status: Acute Plan to address problem: Chronic, supportive care. (3) Seizure disorder Current Visit: No Status: Acute Plan to address problem: Continue current therapy. Seizure precautions, fall precautions. Neuro check. (4) DVT prophylaxis Current Visit: No Status: Acute Plan to address problem: SCDs bilateral lower extremities while in bed (5) Advance care planning Current Visit: Yes Status: Acute Plan to address problem: Disease education conducted, care plan discussed, diagnoses discussed, prognosis discussed patient mother knowledges understanding agreement care plan, +30 minutes. (6) Preventative health care Current Visit: Yes Status: Acute Plan to address problem: Patient family counseled regarding PEG tube care, risk factor reduction, outpatient follow-up with primary care physician for all age and risk factor appropriate screening test. +30 minutes. Subjective Date of service: 10/22/21 Objective - Constitutional Vitals: Vital Signs - 12hr 10/22/21 10/22/21 10/22/21 11:50 14:45 14:50 Temperature 97.3 F L 97.1 F L Pulse Rate 64 74 73 Respiratory 20 20 13 Rate Blood Pressure 142/75 108/56 110/65 O2 Sat by Pulse 100 96 95 Oximetry 10/22/21 10/22/21 10/22/21 14:55 15:00 15:15 Temperature 98.9 F Pulse Rate 70 67 65 Respiratory 15 16 20 Rate Blood Pressure 111/57 117/59 117/55 O2 Sat by Pulse 97 98 98 Oximetry 10/22/21 10/22/21 10/22/21 15:30 15:31 15:57 Temperature 98.9 F 98.9 F Pulse Rate 63 63 Respiratory 20 20 Rate Blood Pressure 141/64 141/64 O2 Sat by Pulse 99 98 96 Oximetry 10/22/21 10/22/21 21:27 23:15 Temperature 100.4 F H Pulse Rate 88 Respiratory 20 20 Rate Blood Pressure 143/89 O2 Sat by Pulse 100 Oximetry - Labs CBC & Chem 7: 10/22/21 19:24 10/22/21 19:24 Labs: Abnormal lab results 10/22/21 10/22/21 Range/Units 19:24 19:24 RBC 5.51 H (3.65-5.03) M/mm3 Hgb 16.0 H (11.8-15.2) gm/dl Hct 48.2 H D (35.5-45.6) % Lymph % (Auto) 5.6 L (13.4-35.0) % Baso % (Auto) 1.9 H (0.0-1.8) % Lymph # (Auto) 0.6 L (1.2-5.4) K/mm3 Baso # (Auto) 0.2 H (0.0-0.1) K/mm3 Seg Neutrophils % 86.2 H (40.0-70.0) % Seg Neutrophils # 8.6 H (1.8-7.7) K/mm3 Sodium 134 L D (137-145) mmol/L Carbon Dioxide 21 L (22-30) mmol/L BUN 5 L (9-20) mg/dL Creatinine 0.5 L D (0.8-1.3) mg/dL
[2021-10-23] MEDS: SODIUM CHLORIDE 0.9% 1000 ML 1,000 ML IV SCH ×2 (01:23→10:39)
--- NOTE | 2021-10-23 08:46 | Progress Note ---
Assessment and Plan Displaced chronic gtube. Initial channel closed. Pt with past hx of open Chano and possibly an open gtube placement. Patient postop day #1 status post replacement of PEG tube. CT scan of abdomen after placement of PEG tube shows good position. Patient is cleared to resume feedings this morning and discharge. Follow-up with me as needed. Subjective Date of service: 10/23/21 Narrative: Patient postop day #1 status post replacement of PEG tube. CT scan of abdomen after placement of PEG tube shows good position. Patient is cleared to resume feedings this morning and discharge. Follow-up with me as needed. Objective Vital Signs - 12hr 10/22/21 10/22/21 10/22/21 21:27 22:00 23:15 Temperature 100.4 F H Pulse Rate 88 Respiratory 20 20 Rate Blood Pressure 143/89 O2 Sat by Pulse 100 95 Oximetry 10/23/21 10/23/21 00:15 04:38 Temperature 99.1 F Pulse Rate 91 H Respiratory 18 20 Rate Blood Pressure 147/84 O2 Sat by Pulse 96 Oximetry - Labs 10/22/21 19:24 10/22/21 19:24 Diabetes panel 10/22/21 Range/Units 19:24 Sodium 134 L D (137-145) mmol/L Potassium 3.9 (3.6-5.0) mmol/L Chloride 99.5 (98-107) mmol/L Carbon Dioxide 21 L (22-30) mmol/L BUN 5 L (9-20) mg/dL Creatinine 0.5 L D (0.8-1.3) mg/dL Glucose 83 (75-100) mg/dL Calcium 8.8 D (8.4-10.2) mg/dL Calcium panel 10/22/21 Range/Units 19:24 Calcium 8.8 D (8.4-10.2) mg/dL Pituitary panel 10/22/21 Range/Units 19:24 Sodium 134 L D (137-145) mmol/L Potassium 3.9 (3.6-5.0) mmol/L Chloride 99.5 (98-107) mmol/L Carbon Dioxide 21 L (22-30) mmol/L BUN 5 L (9-20) mg/dL Creatinine 0.5 L D (0.8-1.3) mg/dL Glucose 83 (75-100) mg/dL Calcium 8.8 D (8.4-10.2) mg/dL Adrenal panel 10/22/21 Range/Units 19:24 Sodium 134 L D (137-145) mmol/L Potassium 3.9 (3.6-5.0) mmol/L Chloride 99.5 (98-107) mmol/L Carbon Dioxide 21 L (22-30) mmol/L BUN 5 L (9-20) mg/dL Creatinine 0.5 L D (0.8-1.3) mg/dL Glucose 83 (75-100) mg/dL Calcium 8.8 D (8.4-10.2) mg/dL
[2021-10-23] MEDS: METOPROLOL TARTRATE 100 MG TAB FEEDTUBE SCH (09:17)
[2021-10-23] MEDS: cloNIDine 0.1 MG TAB FEEDTUBE SCH (09:17)
[2021-10-23 11:33] VITALS: BP 161/85
--- NOTE | 2021-10-23 11:36 | Post Anesthesia Evaluation ---
- Post Anesthesia Evaluation Patient Participated: Yes Airway Patent: Yes Stable Respiratory Function: Yes Anesthesia Complications: No Block Receding Appropriately: Not Applicable Patient on Ventilator: No
--- NOTE | 2021-10-23 11:36 | Discharge Summary ---
Providers - Providers Date of Admission: 10/21/21 20:53 Date of discharge: 10/23/21 Attending physician: SARAH DIXON 10/21/21 16:14 Consult to Physician [CONS] Routine Comment: Consulting Provider: MARITZA BANDA Physician Instructions: Reason For Exam: G-TUBE ISSUE Primary care physician: ASSOCIATE PROFESSOR OF ANTHROPOLOGY Hospitalization Condition: Stable Disposition: 01 HOME / SELF CARE / HOMELESS Time spent for discharge: 34 minutes Core Measure Documentation - Palliative Care Palliative Care/ Comfort Measures: Not Applicable - Core Measures Any of the following diagnoses?: history only Exam - Constitutional Vitals: Temp Pulse Resp BP Pulse Ox 99.1 F 91 H 20 147/84 96 10/23/21 04:38 10/23/21 04:38 10/23/21 04:38 10/23/21 04:38 10/23/21 10:00 Plan Activity: fall precautions Diet: other (TF diet ) Follow up with: PRIMARY CARE, [Primary Care Provider] - 7 Days
== END 2021-10-23 20:31 | disposition home or self-care (01) | DRG 395 ==
LOC: ED 11:40 → 3A 20:53
PROVIDERS: ADMIT Internal Medicine; ATTEND Internal Medicine
PROC: 0DH63UZ Insertion of Feeding Device into Stomach, Percutaneous Approach (ICD-10-PCS; principal; 2021-10-22)
DX: K94.23 Gastrostomy malfunction (principal); G80.9 Cerebral palsy, unspecified; G40.909 Epilepsy, unspecified, not intractable, without status epilepticus; R53.81 Other malaise; R13.10 Dysphagia, unspecified; Z86.79 Personal history of other diseases of the circulatory system; I10 Essential (primary) hypertension; Z82.49 Family history of ischemic heart disease and other diseases of the circulatory system
CPT/HCPCS: 36415; 74018; 74176; 80048; 80053; 85025; 99285; G0378; J0690; J1170; J2560; J2704; J7030